=== PATIENT | female | born 1955 | race Caucasian/White ===

== ENCOUNTER 2019-03-24 10:48 | Observation (INO) | payer OTHER, SELFPAY ==
[2019-03-24] VITALS (11 sets, daily range): BP systolic 107–139; BP diastolic 77–98; PULSE 66–105; RESP 16–26; TEMP 36.6–37.7; O2SAT 96–100; BMI 19.3
--- NOTE | 2019-03-24 11:03 | CT_ITS ---
STUDY: CT BRAIN WITHOUT CONTRAST REASON FOR EXAM: Female, 63 years old. Seizure x2. History of seizures, hypertension and drug abuse. RADIATION DOSAGE (If Supplied By Facility): CTDIvol = ( 44.99 ) mGy, DLP = ( 812.98 ) mGycm TECHNIQUE: Transaxial CT imaging of the brain was performed without administration of intravenous contrast material. Sagittal and coronal 2-D MPR Individualized dose optimization techniques were used for this CT. COMPARISON: MRI brain 09/01/2017, CT head 08/30/2017, 11/22/2016, 06/01/2016.. FINDINGS: Paranasal sinuses clear. Left mastoid air cells and middle ear cavity clear. Right mastoidectomy. Mild soft tissue thickening on the margins of the right middle ear cavity. Moderate degenerative features of the left TMJ, [id number] of the right TMJ. Symmetric and grossly normal features of the internal auditory canals, cochlea and semicircular canals. Extra cranial soft tissues including orbital contents exhibit no acute process. Moderate symmetric expansion of lateral ventricles and extra axial spaces consistent with age-related cerebral atrophy. Moderate partially confluent chronic low-density changes in the deep white matter bifrontal and biparietal consistent with chronic microvascular ischemic disease. There is no acute intracranial bleed, mass or mass effect nor any specific evidence of acute territorial infarct. Normal features of the pituitary, brainstem and cerebellum. CT/Brain/Head without Contrast IMPRESSION: No acute intracranial process. Electronically Signed: Brent Looney MD at 11:44 EDT Tel , Service support ,
--- NOTE | 2019-03-24 11:03 | EKG12_ITS ---
Test Reason : MORNING EKG Blood Pressure : / mmHG Vent. Rate : 086 BPM Atrial Rate : 086 BPM P-R Int : 168 ms QRS Dur : 076 ms QT Int : 452 ms P-R-T Axes : 076 051 074 degrees QTc Int : 540 ms Normal sinus rhythm Right atrial enlargement Prolonged QT Abnormal ECG When compared with ECG of 24-MAR-2019 11:02, MANUAL COMPARISON REQUIRED, DATA IS UNCONFIRMED Confirmed by SHAY SCHAEFFER ([id number]), scientific editor RUBÉN MCGRAW ([id number]) on 03/29/2019 2:24:12 PM Referred By: WILFRID Confirmed By:RAFAEL SCHAEFFER
[2019-03-24 11:10] LABS: Bedside Glucose 123 mg/dL (70-110)
[2019-03-24 11:17] LABS: International Normalized Ratio 1.1; Prothrombin Time (Protime)PT. 13.7 SECONDS (11.7-14.9)
[2019-03-24 11:18] LABS: Absolute Lymphocyte Count 1.09 X10^3/ul (0.83-4.51); Absolute Neutrophil Count 7.3 X10^3/uL (2.0-7.7); Basophil# 0.02 X10^3/uL; Basophil% 0.2 % (0-1); Eosinophil# 0.01 X10^3/uL; Eosinophils% 0.1 % (0-5); Hematocrit 40.6 % (37-47); Hemoglobin 13.9 g/dl (12.0-15.0); Lymphocyte # 1.09 X10^3/ul (4.0); Lymphocyte % 10.5 % (19-41); Mean Corp Hgb Conc 34.2 g/gl (32-36); Mean Corpuscular Hgb 32.9 pg (27.0-32.0); Mean Platelet Vol. 9.4 fl (6.2-12.0); Monocyte# 1.96 X10^3/uL; Monocyte% 18.8 % (0-10); Neutrophil # 7.33 X10^3/uL (2.7-7.7); Neutrophil % 70.2 % (47-70); Partial Thromboplast Time 34.3 Seconds (24.1-36.2); Platelet Count 372 K/mm3 (150-450); RBC Distribution Width CV 12.3 % (11.6-14.6); RBC Distribution Width SD 41.9 fl (35.1-43.9); Red Blood Count 4.23 M/mm3 (4.2-5.4); White Blood Count 10.4 K/mm3 (4.4-11.0)
[2019-03-24 11:19] LABS: Differential Indicated SCAN CRITERIA MET; POSITIVE COUNT NO; POSITIVE DIFFERENTIAL YES; POSITIVE MORPHOLOGY NO
--- NOTE | 2019-03-24 11:20 | RAD_ITS ---
STUDY: X-RAY CHEST REASON FOR EXAM: Female, 63 years old. Cough, seizure last night and again today. TECHNIQUE: AP upright portable chest COMPARISON: 08/31/2017 FINDINGS: Evidence of COPD/emphysema. Hyperlucent hyperinflated lungs with diffuse mild coarsening of the pulmonary interstitium. Stable compared to prior imaging. The lungs are otherwise clear and symmetrically expanded. Normal cardiomediastinal silhouette, naeem and pleural margins. No acute osseous or upper abdominal process. RAD/Chest 1 View IMPRESSION: No acute cardiopulmonary process. Electronically Signed: Brent Looney MD at 11:46 EDT Tel , Service support ,
[2019-03-24 11:24] LABS: Anion Gap 9 (5-15); BUN 7 mg/dL (7-18); BUN/Creat Ratio 10.1 RATIO (10-20); Calcium,Total 8.2 mg/dL (8.5-10.1); Chloride 98 mmol/L (98-107); EST Glomerular Filtration Rate 90 mL/min (>60); Est Glom Filt Rate - Afr Amer 109 mL/min (>60); Estimated Creatinine Clearance 61.45 ml/min; Glucose 117 mg/dL (74-106); Potassium 3.6 mmol/L (3.5-5.1); Sodium Level 135 mmol/L (136-145)
--- NOTE | 2019-03-24 11:36 | ED.VISSUMM ---
- ER Visit Summary Date of Service: 03/24/19 Chief Complaint: Seizures, abnormal behavior History of Present Illness: The patient is a 63 F who presents after having 2 seizures. Apparently she had a seizure last night and this morning. She does have a history of this. She is on Keppra 750 mg twice a day. She has had no recent illnesses. According to the daughter she has not been acting normally. She is nonverbal and does not contribute to any of the history. The daughter states that she will not speak unless the patient's is present. She also says that when the patient's was at work she felt normal but when he returns from work she acts like this. Physical Examination: Vital signs reviewed. HEENT exam unremarkable. Heart is regular rate and rhythm. Lungs are clear bilaterally. Abdomen is soft and nontender. Extremities have no edema. Her neurologic exam shows that she is nonverbal and does not answer any questions. She has diffuse overall weakness. She is holding her left arm stiff up into her chest. Her head is deviated to the right. Test Results: CAT scan of the head and chest x-ray are nonacute. EKG is normal sinus rhythm. Labs are unremarkable except for a UTI. Emergency Department Course and Treatment: Upon reevaluation the patient is holding her arms to her side. She was looking straight forward and then when I walked into the room she moved her left arm stiff again and started looking to the right. She then had a episode where her eyes were rhythmically moving as well as her tongue. This lasted about 15 seconds. At this point I loaded her with 1 g of Keppra. She will be given Cipro for her UTI. She is not back to her normal mental state according to family. I feel that we should admit the patient to the hospital for IV antibiotics as well as observation for her seizures. Treatment Plan: [] Disposition: Admit Impression: Seizure, UTI This note was generated with [employer] dictation software. It may contain incorrect words, spelling, and punctuation that were not noted in review of the chart prior to signing ED Disposition - Plan for ED Patient: Referrals: Oscar Reese MD [Primary Care Provider] -
[2019-03-24 11:47] LABS: Platelet Estimate ADEQUATE (ADEQ); Red Cell Morphology NORM C+C NORMAL (NORM C&C)
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
[2019-03-24] MEDS: levETIRAcetam IV 1,000 MG/100 ML BAG 400 MG IV (12:14)
[2019-03-24 12:58] LABS: Amphetamine Urine VISTA NEGATIVE (<1000 ng/mL); Barbiturate Urine VISTA NEGATIVE (< 200 ng/mL); Benzodiazepine Urine VISTA POSITIVE (< 200 ng/mL); Cocaine Urine VISTA NEGATIVE (< 300 ng/mL); Ecstacy Urine VISTA NEGATIVE (< 500 ng/mL); Methadone Urine VISTA NEGATIVE (< 300 ng/mL); PCP Urine VISTA NEGATIVE (< 25 ng/mL); THC Urine VISTA POSITIVE (< 50 ng/mL); Vista UDS pH Range 7
[2019-03-24 13:15] LABS: Mucous, Urine 0 SEEN /hpf (<or=2+)
[2019-03-24 13:22] LABS: Glucose, Dipstick Normal (Normal); Ketone-Dipstick Negative (Negative); Leukocyte Esterase-Dipstick 100 /ul (Negative); Nitrite-Dipstick Negative (Negative); Occult Blood-Urine 50 /ul (Negative); Protein-Dipstick 100 mg/dl (Negative); Specific Gravity, Urine 1.015 (1.002-1.030); Urine Bilirubin Dipstick Negative (Negative); Urine Urobilinogen Normal (Normal)
[2019-03-24 13:26] LABS: Color, Urine STRAW (Yellow); Urine Clarity Cloudy (Clear)
[2019-03-24 13:35] LABS: Bacteria 1+ /hpf (None Seen); Red Blood Cells-Urine 0-5 SEEN /hpf (0-5); Squamous Epithelial Cells - UA 10-25 SEEN /hpf (5-10); White Blood Cells 10-25 SEEN /hpf (0-5)
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
--- NOTE | 2019-03-24 14:19 | PCM.HP.STD ---
Problem List (1) Hypothyroidism Status: Chronic (2) Macrocytosis without anemia Status: Chronic (3) Seizure disorder Status: Chronic (4) History of alcohol abuse Status: Chronic Comment: dtr states she drank to relieve hip pain and she only drinks occasionally now History of Present Illness Date of Admission: 03/24/19 Chief Complaint: Reported seizure. The patient is a 63 year old F with past medical history as mentioned above presented to the emergency room because of reported seizure. At this time, patient is very sleepy, lethargic and not able to provide any history. Patient's daughter was at the bedside. According to the daughter, patient was sick, complains of stomach upset with nausea and vomiting last night. Daughter mentioned that her mother is noncompliant with her medications and she knew that her mother took her Keppra on Friday morning and she is not sure if she took her medications after that. Reportedly, patient had a seizure last night and another seizure this morning. Patient had a history of seizure and she has been on Keppra and she has been noncompliant with her medications. She has history of polysubstance abuse and according to her daughter, she is still smokes marijuana and her urine drug screen was positive for benzodiazepines and cannabinoids. She has a history of hypothyroidism, has been on levothyroxine and TSH was 2.61 on August,. In the emergency department, patient was obtunded, sleepy and lethargic, opens eyes to painful stimuli, not following commands. She had a low-grade fever of 99.9, blood pressure and heart rate are stable, pulse ox is maintained on room air. Routine blood work was unremarkable. EKG revealed normal sinus rhythm without evidence of acute ischemic changes, revealed prolonged QTc interval. Troponin 0 0.037, negative. Urinalysis revealed cloudy urine, negative for nitrite, there was 100 leukocyte esterase, 10-25 WBCs and 1+ bacteria. Urine drug screen was positive for benzodiazepines and cannabinoids. Blood alcohol level was 4. Chest x-ray showed no acute findings. CT scan brain without contrast showed no acute infarction or hemorrhage. She is being admitted for seizure, encephalopathy likely postictal state and polysubstance abuse as well as probable acute cystitis. Past Medical History Past Medical History (Chronic Problems): Chronic Problems Nicotine addiction (Chronic) Hypothyroidism (Chronic) GERD (gastroesophageal reflux disease) (Chronic) Macrocytosis without anemia (Chronic) Seizure disorder (Chronic) History of alcohol abuse (Chronic) dtr states she drank to relieve hip pain and she only drinks occasionally now Left ventricular hypertrophy (Chronic) Mild on echocardiogram done in July 2014 Allergies Penicillins Allergy (Verified 03/24/19 10:49) Unknown Home Medications: Ambulatory Orders Medication Instructions Recorded Mirtazapine [Remeron] 30 mg PO QHS 06/01/16 Folic Acid 1 mg PO DAILY@0800 09/30/16 Aspirin [Aspir-Low] 81 mg PO DAILY 03/24/19 Ferrous Sulfate, Dried [Iron] 65 mg PO DAILY 03/24/19 Levetiracetam 750 mg PO BID 03/24/19 Levothyroxine Sodium 150 mg PO DAILY 03/24/19 Magnesium Oxide [Magnesium] 500 mg PO DAILY 03/24/19 Multivitamin with Minerals 1 tab PO DAILY 03/24/19 [Multiple Vitamin] Potassium 99 mg PO DAILY 03/24/19 Rosuvastatin Calcium [Crestor] 20 mg PO QHS 03/24/19 Surgical History: - - tubal ligation in her Psychiatric History: No pertinent psych hx, - 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 Eyes: Reports: - - Unobtainable, patient is obtunded, lethargic. HEENT: Reports: - - Unobtainable, patient is obtunded, lethargic. Cardiovascular: Reports: - - Unobtainable, patient is obtunded, lethargic. Respiratory: Reports: - - Unobtainable, patient is obtunded, lethargic. Gastrointestinal: Reports: - - Unobtainable, patient is obtunded, lethargic. Genitourinary: Reports: - - Unobtainable, patient is obtunded, lethargic. Gynecological: Reports: - - Unobtainable, patient is obtunded, lethargic. Musculoskeletal: Reports: - - Unobtainable, patient is obtunded, lethargic. Neurological: Reports: - - Unobtainable, patient is obtunded, lethargic. Psychiatric: Reports: - - Unobtainable, patient is obtunded, lethargic. VTE Information - Inpt Only VTE Present on Admission: No VTE Mechan Device Prophylaxis: None VTE Pharm Prophylaxis ordered?: Yes - Physical Exam General: - - Sleepy, lethargic, open eyes upon painful stimuli and verbal stimuli, flexor response to pain, not following commands. HEENT: Atraumatic, PERRLA, EOMI Oral: Moist Mucosa, No Gingival or Mucosal Lesions/ Ulcerations Neck: Supple, No JVD, Negative Carotid Bruits, Trachea Midline, Thyroid Normal Size and Texture Lungs: Clear to auscultation, No wheeze, No rales, Diminished, Rhonchi Cardiovascular: Regular rate, Regular Rhythm, Normal S1, Normal S2, PMI Normal Abdomen: Bowel Sounds Present, Soft, Non Tender, Non-Distended, No Hepato-splenomegaly Extremities: No clubbing, No cyanosis, No edema Skin: No rashes, No breakdown Lymphatic: No Cervical, Supraclavicular, or Inguinal Adenopathy Neurological: Cranial nerves II-XII grossly intact, - - Moving all limbs. Psych/Mental Status: - - Unable to assess. Vital Signs Temp Pulse Resp BP Pulse Ox 99.9 F H 66 16 139/91 H 100 03/24/19 11:03 03/24/19 12:48 03/24/19 12:48 03/24/19 12:48 03/24/19 12:48 Oxygen Delivery Method Room Air Weight: 105 lb 11.2 oz Body Mass Index (BMI) 19.3 Finger Stick Blood Glucose 123 Laboratory Tests Past 24 Hrs 03/24/19 03/24/19 03/24/19 11:00 11:00 11:00 WBC 10.4 RBC 4.23 Hgb 13.9 Hct 40.6 MCV 96.0 MCH 32.9 H MCHC 34.2 RDW 12.3 RDW Differential 41.9 Plt Count 372 MPV 9.4 Immature Gran % (Auto) 0.200 Neut % (Auto) 70.2 H Lymph % (Auto) 10.5 L Tift % (Auto) 18.8 H Eos % (Auto) 0.1 Baso % (Auto) 0.2 Absolute Neuts (auto) 7.3 Absolute Lymphs (auto) 1.09 Total Counted Not Reportable Differential Comment Platelet Estimate ADEQUATE RBC Morphology NORM C+C PT 13.7 INR 1.1 APTT 34.3 Sodium 135 L Potassium 3.6 Chloride 98 Carbon Dioxide 28.0 Anion Gap 9 BUN 7 Creatinine 0.70 Estim Creat Clear Calc 61.45 Est GFR (MDRD) Af Amer 109 Est GFR (MDRD) Non-Af 90 BUN/Creatinine Ratio 10.1 Glucose 117 H Calcium 8.2 L Troponin I 0.037 Urine Color Urine Clarity Urine pH Ur Specific Kimball Urine Protein Urine Glucose (UA) Urine Ketones Urine Occult Blood Urine Nitrite Urine Bilirubin Urine Urobilinogen Ur Leukocyte Esterase Urine RBC Urine WBC Ur Squamous Epith Cells Urine Bacteria Urine Mucus Urine Opiates Screen Urine Methadone Screen Ur Barbiturates Screen Ur Phencyclidine Scrn Ur Amphetamines Screen U Methamphetamin-MDMA U Benzodiazepines Scrn Urine Cocaine Screen U Cannabinoids Screen Ur Drug Screen Comment Ethyl Alcohol 03/24/19 03/24/19 03/24/19 11:00 12:20 12:20 WBC RBC Hgb Hct MCV MCH MCHC RDW RDW Differential Plt Count MPV Immature Gran % (Auto) Neut % (Auto) Lymph % (Auto) Tift % (Auto) Eos % (Auto) Baso % (Auto) Absolute Neuts (auto) Absolute Lymphs (auto) Total Counted Differential Comment Platelet Estimate RBC Morphology PT INR APTT Sodium Potassium Chloride Carbon Dioxide Anion Gap BUN Creatinine Estim Creat Clear Calc Est GFR (MDRD) Af Amer Est GFR (MDRD) Non-Af BUN/Creatinine Ratio Glucose Calcium Troponin I Urine Color STRAW Urine Clarity Cloudy Urine pH 7.0 Ur Specific Kimball 1.015 Urine Protein 100 H Urine Glucose (UA) Normal Urine Ketones Negative Urine Occult Blood 50 H Urine Nitrite Negative Urine Bilirubin Negative Urine Urobilinogen Normal Ur Leukocyte Esterase 100 H Urine RBC 0-5 SEEN Urine WBC 10-25 SEEN Ur Squamous Epith Cells 10-25 SEEN Urine Bacteria 1+ Urine Mucus 0 SEEN Urine Opiates Screen NEGATIVE Urine Methadone Screen NEGATIVE Ur Barbiturates Screen NEGATIVE Ur Phencyclidine Scrn NEGATIVE Ur Amphetamines Screen NEGATIVE U Methamphetamin-MDMA NEGATIVE U Benzodiazepines Scrn POSITIVE H Urine Cocaine Screen NEGATIVE U Cannabinoids Screen POSITIVE H Ur Drug Screen Comment Ethyl Alcohol 4.0 POC Glucose 03/24/19 11:04 POC Glucose 123 H Clinical Impression(s) from Imaging Studies Brain CT 03/24/19 11:03 IMPRESSION: No acute intracranial process. Electronically Signed: Brent Looney MD at 11:44 EDT Tel , Service support , Chest X-Ray 03/24/19 11:20 IMPRESSION: No acute cardiopulmonary process. Electronically Signed: Brent Looney MD at 11:46 EDT Tel , Service support , Assessment/Plan This is a 63 years old female patient presented to the emergency room because of seizure in context of history of seizure with noncompliance, found to have probable acute cystitis and encephalopathy which is could be due to postictal state. #1 seizure: With history of seizure disorder, has been on Keppra. Reportedly, patient is noncompliant with her medications. This seizure could be triggered by probable acute cystitis versus substance abuse, patient has been smoking marijuana. CT scan brain showed no acute findings. Apart from low-grade fever, other vital signs are stable. She was given loading dose of IV Keppra in the ER. Plan: Admit to PCU, cardiac monitoring, n.p.o. for now except p.o. meds, seizure precautions, aspiration precautions, IV Ativan 2 mg x 1 as needed for seizure, IV fluids, IV antiemetics, neurology consult, repeat CBC and BMP tomorrow morning, PT OT evaluation and treatment. #2 encephalopathy: Probably due to postictal state, drug use may be contributing. Urine drug screen was positive for benzodiazepines and cannabinoids. Blood alcohol level was low. CT scan brain showed no acute findings. Plan: Monitoring plan as above, monitor, treat underlying seizure, treat underlying infection. #3 probable acute cystitis: Urinalysis revealed cloudy urine, negative for nitrite, 100 leukocyte esterase and there was 10-25 WBCs and 1+ bacteria. Patient had a low-grade fever in the ER. No leukocytosis. No evidence of sepsis or severe sepsis. Plan: Urine culture, start IV ciprofloxacin. #4 prolonged QTC on EKG: QTC on EKG was 569 ms, no other acute findings on the EKG. She is not on any medication that can cause prolonged QTC. Remeron can cause torsade de points. Troponin was negative. Plan: Cardiac monitoring, check serum magnesium, repeat EKG tomorrow morning. #5 seizure disorder: Patient has been on Keppra, noncompliant. Plan as above. #6 hypothyroidism: Continue levothyroxine , check TSH. #7 polysubstance abuse: urine drug screen was positive as above, plan as above. #8 history of alcohol abuse: According to her daughter, now she uses alcohol only occasionally. #9 GERD: She is not on any treatment at home, will start Pepcid twice daily. #10 DVT prophylaxis: Subcu Lovenox. This note was generated with [employer] dictation software. It may contain incorrect words, spelling, and punctuation that were not noted in checking the note before signing. Code Visit Inpatient E&M: 69918 Init Hosp L3
--- NOTE | 2019-03-24 14:25 | HP.PCM_ITS ---
Problem List (1) Hypothyroidism Status: Chronic (2) Macrocytosis without anemia Status: Chronic (3) Seizure disorder Status: Chronic (4) History of alcohol abuse Status: Chronic Comment: dtr states she drank to relieve hip pain and she only drinks occasionally now History of Present Illness Date of Admission: 03/24/19 Chief Complaint: Reported seizure. The patient is a 63 year old F with past medical history as mentioned above presented to the emergency room because of reported seizure. At this time, patient is very sleepy, lethargic and not able to provide any history. Patient's daughter was at the bedside. According to the daughter, patient was sick, complains of stomach upset with nausea and vomiting last night. Daughter mentioned that her mother is noncompliant with her medications and she knew that her mother took her Keppra on Friday morning and she is not sure if she took her medications after that. Reportedly, patient had a seizure last night and another seizure this morning. Patient had a history of seizure and she has been on Keppra and she has been noncompliant with her medications. She has history of polysubstance abuse and according to her daughter, she is still smokes marijuana and her urine drug screen was positive for benzodiazepines and cannabinoids. She has a history of hypothyroidism, has been on levothyroxine and TSH was 2.61 on August,. In the emergency department, patient was obtunded, sleepy and lethargic, opens eyes to painful stimuli, not following commands. She had a low-grade fever of 99.9, blood pressure and heart rate are stable, pulse ox is maintained on room air. Routine blood work was unremarkable. EKG revealed normal sinus rhythm without evidence of acute ischemic changes, revealed prolonged QTc interval. Troponin 0 0.037, negative. Urinalysis revealed cloudy urine, negative for nitrite, there was 100 leukocyte esterase, 10-25 WBCs and 1+ bacteria. Urine drug screen was positive for benzodiazepines and cannabinoids. Blood alcohol level was 4. Chest x-ray showed no acute findings. CT scan brain without contrast showed no acute infarction or hemorrhage. She is being admitted for seizure, encephalopathy likely postictal state and polysubstance abuse as well as probable acute cystitis. Past Medical History Past Medical History (Chronic Problems): Chronic Problems Nicotine addiction (Chronic) Hypothyroidism (Chronic) GERD (gastroesophageal reflux disease) (Chronic) Macrocytosis without anemia (Chronic) Seizure disorder (Chronic) History of alcohol abuse (Chronic) dtr states she drank to relieve hip pain and she only drinks occasionally now Left ventricular hypertrophy (Chronic) Mild on echocardiogram done in July 2014 Allergies Penicillins Allergy (Verified 03/24/19 10:49) Unknown Home Medications: Ambulatory Orders Medication Instructions Recorded Mirtazapine [Remeron] 30 mg PO QHS 06/01/16 Folic Acid 1 mg PO DAILY@0800 09/30/16 Aspirin [Aspir-Low] 81 mg PO DAILY 03/24/19 Ferrous Sulfate, Dried [Iron] 65 mg PO DAILY 03/24/19 Levetiracetam 750 mg PO BID 03/24/19 Levothyroxine Sodium 150 mg PO DAILY 03/24/19 Magnesium Oxide [Magnesium] 500 mg PO DAILY 03/24/19 Multivitamin with Minerals 1 tab PO DAILY 03/24/19 [Multiple Vitamin] Potassium 99 mg PO DAILY 03/24/19 Rosuvastatin Calcium [Crestor] 20 mg PO QHS 03/24/19 Surgical History: - - tubal ligation in her Psychiatric History: No pertinent psych hx, - PAIN MANAGEMENT NURSE History: No pertinent PAIN MANAGEMENT NURSE history Lives: Spouse/ Significant Other Smoking Status: Current every day smoker Alcohol: Occasional Drugs: Marijuana - *Family History Maternal History Items: Unknown Paternal History Items: Unknown Review of Systems Constitutional: Reports: - - Unobtainable, patient is obtunded, lethargic. Eyes: Reports: - - Unobtainable, patient is obtunded, lethargic. HEENT: Reports: - - Unobtainable, patient is obtunded, lethargic. Cardiovascular: Reports: - - Unobtainable, patient is obtunded, lethargic. Respiratory: Reports: - - Unobtainable, patient is obtunded, lethargic. Gastrointestinal: Reports: - - Unobtainable, patient is obtunded, lethargic. Genitourinary: Reports: - - Unobtainable, patient is obtunded, lethargic. Gynecological: Reports: - - Unobtainable, patient is obtunded, lethargic. Musculoskeletal: Reports: - - Unobtainable, patient is obtunded, lethargic. Neurological: Reports: - - Unobtainable, patient is obtunded, lethargic. Psychiatric: Reports: - - Unobtainable, patient is obtunded, lethargic. VTE Information - Inpt Only VTE Present on Admission: No VTE Mechan Device Prophylaxis: None VTE Pharm Prophylaxis ordered?: Yes - Physical Exam General: - - Sleepy, lethargic, open eyes upon painful stimuli and verbal stimuli, flexor response to pain, not following commands. HEENT: Atraumatic, PERRLA, EOMI Oral: Moist Mucosa, No Gingival or Mucosal Lesions/ Ulcerations Neck: Supple, No JVD, Negative Carotid Bruits, Trachea Midline, Thyroid Normal Size and Texture Lungs: Clear to auscultation, No wheeze, No rales, Diminished, Rhonchi Cardiovascular: Regular rate, Regular Rhythm, Normal S1, Normal S2, PMI Normal Abdomen: Bowel Sounds Present, Soft, Non Tender, Non-Distended, No Hepato- splenomegaly Extremities: No clubbing, No cyanosis, No edema Skin: No rashes, No breakdown Lymphatic: No Cervical, Supraclavicular, or Inguinal Adenopathy Neurological: Cranial nerves II-XII grossly intact, - - Moving all limbs. Psych/Mental Status: - - Unable to assess. Vital Signs Temp Pulse Resp BP Pulse Ox 99.9 F H 66 16 139/91 H 100 03/24/19 11:03 03/24/19 12:48 03/24/19 12:48 03/24/19 12:48 03/24/19 12:48 Oxygen Delivery Method Room Air Weight: 105 lb 11.2 oz Body Mass Index (BMI) 19.3 Finger Stick Blood Glucose 123 Laboratory Tests Past 24 Hrs 03/24/19 03/24/19 03/24/19 11:00 11:00 11:00 WBC 10.4 RBC 4.23 Hgb 13.9 Hct 40.6 MCV 96.0 MCH 32.9 H MCHC 34.2 RDW 12.3 RDW Differential 41.9 Plt Count 372 MPV 9.4 Immature Gran % (Auto) 0.200 Neut % (Auto) 70.2 H Lymph % (Auto) 10.5 L [place] % (Auto) 18.8 H Eos % (Auto) 0.1 Baso % (Auto) 0.2 Absolute Neuts (auto) 7.3 Absolute Lymphs (auto) 1.09 Total Counted Not Reportable Differential Comment Platelet Estimate ADEQUATE RBC Morphology NORM C+C PT 13.7 INR 1.1 APTT 34.3 Sodium 135 L Potassium 3.6 Chloride 98 Carbon Dioxide 28.0 Anion Gap 9 BUN 7 Creatinine 0.70 Estim Creat Clear Calc 61.45 Est GFR (MDRD) Af Amer 109 Est GFR (MDRD) Non-Af 90 BUN/Creatinine Ratio 10.1 Glucose 117 H Calcium 8.2 L Troponin I 0.037 Urine Color Urine Clarity Urine pH Ur Specific [place] Urine Protein Urine Glucose (UA) Urine Ketones Urine Occult Blood Urine Nitrite Urine Bilirubin Urine Urobilinogen Ur Leukocyte Esterase Urine RBC Urine WBC Ur Squamous Epith Cells Urine Bacteria Urine Mucus Urine Opiates Screen Urine Methadone Screen Ur Barbiturates Screen Ur Phencyclidine Scrn Ur Amphetamines Screen U Methamphetamin-MDMA U Benzodiazepines Scrn Urine Cocaine Screen U Cannabinoids Screen Ur Drug Screen Comment Ethyl Alcohol 03/24/19 03/24/19 03/24/19 11:00 12:20 12:20 WBC RBC Hgb Hct MCV MCH MCHC RDW RDW Differential Plt Count MPV Immature Gran % (Auto) Neut % (Auto) Lymph % (Auto) [place] % (Auto) Eos % (Auto) Baso % (Auto) Absolute Neuts (auto) Absolute Lymphs (auto) Total Counted Differential Comment Platelet Estimate RBC Morphology PT INR APTT Sodium Potassium Chloride Carbon Dioxide Anion Gap BUN Creatinine Estim Creat Clear Calc Est GFR (MDRD) Af Amer Est GFR (MDRD) Non-Af BUN/Creatinine Ratio Glucose Calcium Troponin I Urine Color STRAW Urine Clarity Cloudy Urine pH 7.0 Ur Specific [place] 1.015 Urine Protein 100 H Urine Glucose (UA) Normal Urine Ketones Negative Urine Occult Blood 50 H Urine Nitrite Negative Urine Bilirubin Negative Urine Urobilinogen Normal Ur Leukocyte Esterase 100 H Urine RBC 0-5 SEEN Urine WBC 10-25 SEEN Ur Squamous Epith Cells 10-25 SEEN Urine Bacteria 1+ Urine Mucus 0 SEEN Urine Opiates Screen NEGATIVE Urine Methadone Screen NEGATIVE Ur Barbiturates Screen NEGATIVE Ur Phencyclidine Scrn NEGATIVE Ur Amphetamines Screen NEGATIVE U Methamphetamin-MDMA NEGATIVE U Benzodiazepines Scrn POSITIVE H Urine Cocaine Screen NEGATIVE U Cannabinoids Screen POSITIVE H Ur Drug Screen Comment Ethyl Alcohol 4.0 POC Glucose 03/24/19 11:04 POC Glucose 123 H Clinical Impression(s) from Imaging Studies Brain CT 03/24/19 11:03 IMPRESSION: No acute intracranial process. Electronically Signed: Brent Looney MD at 11:44 EDT Tel , Service support , Chest X-Ray 03/24/19 11:20 IMPRESSION: No acute cardiopulmonary process. Electronically Signed: Brent Looney MD at 11:46 EDT Tel , Service support , Assessment/Plan This is a 63 years old female patient presented to the emergency room because of seizure in context of history of seizure with noncompliance, found to have probable acute cystitis and encephalopathy which is could be due to postictal state. #1 seizure: With history of seizure disorder, has been on Keppra. Reportedly, patient is noncompliant with her medications. This seizure could be triggered b y probable acute cystitis versus substance abuse, patient has been smoking marijuana. CT scan brain showed no acute findings. Apart from low-grade fever, other vital signs are stable. She was given loading dose of IV Keppra in the ER. Plan: Admit to PCU, cardiac monitoring, n.p.o. for now except p.o. meds, seizure precautions, aspiration precautions, IV Ativan 2 mg x 1 as needed for seizure, IV fluids, IV antiemetics, neurology consult, repeat CBC and BMP tomorrow morning, PT OT evaluation and treatment. #2 encephalopathy: Probably due to postictal state, drug use may be contributing. Urine drug screen was positive for benzodiazepines and cannabinoids. Blood alcohol level was low. CT scan brain showed no acute findings. Plan: Monitoring plan as above, monitor, treat underlying seizure, treat underlying infection. #3 probable acute cystitis: Urinalysis revealed cloudy urine, negative for nitrite, 100 leukocyte esterase and there was 10-25 WBCs and 1+ bacteria. Patient had a low-grade fever in the ER. No leukocytosis. No evidence of sepsis or severe sepsis. Plan: Urine culture, start IV ciprofloxacin. #4 prolonged QTC on EKG: QTC on EKG was 569 ms, no other acute findings on the EKG. She is not on any medication that can cause prolonged QTC. Remeron can cause torsade de points. Troponin was negative. Plan: Cardiac monitoring, check serum magnesium, repeat EKG tomorrow morning. #5 seizure disorder: Patient has been on Keppra, noncompliant. Plan as above. #6 hypothyroidism: Continue levothyroxine , check TSH. #7 polysubstance abuse: urine drug screen was positive as above, plan as above. #8 history of alcohol abuse: According to her daughter, now she uses alcohol only occasionally. #9 GERD: She is not on any treatment at home, will start Pepcid twice daily. #10 DVT prophylaxis: Subcu Lovenox. This note was generated with [employer] dictation software. It may contain incorrect words, spelling, and punctuation that were not noted in checking the note before signing. Code Visit Inpatient E&M: 91607 Init Hosp L3
[2019-03-24] MEDS: Ciprofloxacin 400 MG/200 ML BAG 200 MG IV ×2 (14:29→22:03)
[2019-03-24] MEDS: LORazepam 2 MG/ML Syringe IV (15:10)
--- NOTE | 2019-03-24 15:26 | NURSING ---
Pt very agitated and violent upon admission to floor. Dr. Henderson at bedside. Ordered x1 dose IV ativan for agitation. Superviser and chargemaster analyst at bedside. PT resisting care and oxygen. 3LNC applied once able to. Unable to obtain vital signs at this time due to pt's agitation. PT had x1 incontinence of stool and urine. IV ativan given with confirmation of Perico Prince and Perico Tucker RN. Pt's family member at bedside. Pt in bed at this time with seizure precautions. Environmental services called to clean up room. This RN will reattempt vital signs once pt has calmed down and not resisting care.
[2019-03-24] MEDS: 0.9% Normal Saline 1,000 ML 75 ML IV (15:47)
[2019-03-24 15:59] LABS: Magnesium 1.7 mg/dL (1.6-2.6); Thyroid Stim Hormone (TSH) < 0.01 uIU/mL (0.358-3.74)
--- NOTE | 2019-03-24 16:09 | NURSING ---
Pt unable to have haldol per Dr. Henderson due to prolonged QT
[2019-03-25] VITALS (8 sets, daily range): BP systolic 102–136; BP diastolic 66–83; PULSE 76–91; RESP 16; TEMP 36.4–37.4; O2SAT 95–100
[2019-03-25] MEDS: Levothyroxine 150 MCG Tablet PO (05:41)
--- NOTE | 2019-03-25 05:55 | EKG12_ITS ---
Test Reason : CP Blood Pressure : / mmHG Vent. Rate : 098 BPM Atrial Rate : 098 BPM P-R Int : 162 ms QRS Dur : 066 ms QT Int : 444 ms P-R-T Axes : 090 064 082 degrees QTc Int : 566 ms Normal sinus rhythm Septal infarct (cited on or before 17-SEP-2015), age undetermined Prolonged QT Abnormal ECG Confirmed by UYEN AGUIRRE ([id number]), publication editor RUBÉN MCGRAW ([id number]) on 03/26/2019 10:49:48 AM Referred By: ARTI Confirmed By:UYEN AGUIRRE
[2019-03-25 06:15] LABS: Absolute Lymphocyte Count 1.93 X10^3/ul (0.83-4.51); Absolute Neutrophil Count 6.6 X10^3/uL (2.0-7.7); Basophil# 0.05 X10^3/uL; Basophil% 0.5 % (0-1); Eosinophil# 0.05 X10^3/uL; Eosinophils% 0.5 % (0-5); Hematocrit 35.9 % (37-47); Hemoglobin 12.1 g/dl (12.0-15.0); Lymphocyte # 1.93 X10^3/ul (4.0); Lymphocyte % 19.4 % (19-41); Mean Corp Hgb Conc 33.7 g/gl (32-36); Mean Corpuscular Hgb 32.8 pg (27.0-32.0); Mean Corpuscular Volume 97.3 fL (81-99); Mean Platelet Vol. 9.4 fl (6.2-12.0); Monocyte# 1.32 X10^3/uL; Monocyte% 13.3 % (0-10); Neutrophil # 6.58 X10^3/uL (2.7-7.7); Neutrophil % 66.2 % (47-70); Platelet Count 316 K/mm3 (150-450); RBC Distribution Width CV 12.6 % (11.6-14.6); RBC Distribution Width SD 44.8 fl (35.1-43.9); Red Blood Count 3.69 M/mm3 (4.2-5.4); White Blood Count 9.9 K/mm3 (4.4-11.0)
[2019-03-25 06:17] LABS: POSITIVE COUNT NO; POSITIVE DIFFERENTIAL NO; POSITIVE MORPHOLOGY NO
[2019-03-25 06:23] LABS: AST(SGOT) 40 U/L (15-37); Alanine Aminotransfer ALT/SGPT 27 U/L (13-56); Albumin, Serum 3.1 g/dL (3.2-5.0); Alkaline Phosphatase 69 U/L (45-117); Anion Gap 8 (5-15); BUN 7 mg/dL (7-18); BUN/Creat Ratio 12.8 RATIO (10-20); Calcium,Total 8.3 mg/dL (8.5-10.1); Chloride 105 mmol/L (98-107); Creatinine, Serum 0.55 mg/dL (0.55-1.02); EST Glomerular Filtration Rate 119 mL/min (>60); Est Glom Filt Rate - Afr Amer 144 mL/min (>60); Estimated Creatinine Clearance 31.48 ml/min; Globulin 3.2 g/dL (2.2-4.2); Glucose 138 mg/dL (74-106); Protein, Total 6.3 g/dL (6.4-8.2); Sodium Level 139 mmol/L (136-145)
[2019-03-25] MEDS: 0.9% Normal Saline 1,000 ML 75 ML IV (06:49)
[2019-03-25] MEDS: Famotidine 20 MG Tablet PO (08:48)
[2019-03-25] MEDS: Ferrous Sulfate 325 MG Tablet PO (08:48)
[2019-03-25] MEDS: Aspirin E.C. 81 MG Tablet PO (08:48)
[2019-03-25] MEDS: Folic Acid 1 MG Tablet PO (08:48)
[2019-03-25] MEDS: Enoxaparin 40 MG/0.4 ML Syringe SC (08:48)
--- NOTE | 2019-03-25 08:57 | PCM.PROGNOTE ---
- Physical Exam Vital Signs Temp Pulse Resp BP Pulse Ox 99.3 F H 80 16 102/66 95 03/25/19 08:27 03/25/19 08:27 03/25/19 08:27 03/25/19 08:27 03/25/19 08:46 Oxygen Flow Rate (L/min) 2 Oxygen Delivery Method Room Air Weight: 42 lb 8.787 oz Body Mass Index (BMI) 6.8 Finger Stick Blood Glucose 123 Intake and Output for Last 24 Hours 03/23/19 03/24/19 03/25/19 23:59 23:59 23:59 Intake Total 984 / 984 744 / 744 Output Total 350 / 350 Balance 634 / 634 744 / 744 Laboratory Tests Past 24 Hrs 03/24/19 03/24/19 03/24/19 11:00 11:00 11:00 WBC 10.4 RBC 4.23 Hgb 13.9 Hct 40.6 MCV 96.0 MCH 32.9 H MCHC 34.2 RDW 12.3 RDW Differential 41.9 Plt Count 372 MPV 9.4 Immature Gran % (Auto) 0.200 Neut % (Auto) 70.2 H Lymph % (Auto) 10.5 L [place] % (Auto) 18.8 H Eos % (Auto) 0.1 Baso % (Auto) 0.2 Absolute Neuts (auto) 7.3 Absolute Lymphs (auto) 1.09 Total Counted Not Reportable Differential Comment Platelet Estimate ADEQUATE RBC Morphology NORM C+C PT 13.7 INR 1.1 APTT 34.3 Sodium 135 L Potassium 3.6 Chloride 98 Carbon Dioxide 28.0 Anion Gap 9 BUN 7 Creatinine 0.70 Estim Creat Clear Calc 61.45 Est GFR (MDRD) Af Amer 109 Est GFR (MDRD) Non-Af 90 BUN/Creatinine Ratio 10.1 Glucose 117 H Calcium 8.2 L Magnesium Total Bilirubin AST ALT Alkaline Phosphatase Troponin I 0.037 Total Protein Albumin Globulin Albumin/Globulin Ratio TSH Free T4 Urine Color Urine Clarity Urine pH Ur Specific [place] Urine Protein Urine Glucose (UA) Urine Ketones Urine Occult Blood Urine Nitrite Urine Bilirubin Urine Urobilinogen Ur Leukocyte Esterase Urine RBC Urine WBC Ur Squamous Epith Cells Urine Bacteria Urine Mucus Urine Opiates Screen Urine Methadone Screen Ur Barbiturates Screen Ur Phencyclidine Scrn Ur Amphetamines Screen U Methamphetamin-MDMA U Benzodiazepines Scrn Urine Cocaine Screen U Cannabinoids Screen Ur Drug Screen Comment Ethyl Alcohol 03/24/19 03/24/19 03/24/19 11:00 11:00 12:20 WBC RBC Hgb Hct MCV MCH MCHC RDW RDW Differential Plt Count MPV Immature Gran % (Auto) Neut % (Auto) Lymph % (Auto) [place] % (Auto) Eos % (Auto) Baso % (Auto) Absolute Neuts (auto) Absolute Lymphs (auto) Total Counted Differential Comment Platelet Estimate RBC Morphology PT INR APTT Sodium Potassium Chloride Carbon Dioxide Anion Gap BUN Creatinine Estim Creat Clear Calc Est GFR (MDRD) Af Amer Est GFR (MDRD) Non-Af BUN/Creatinine Ratio Glucose Calcium Magnesium 1.7 Total Bilirubin AST ALT Alkaline Phosphatase Troponin I Total Protein Albumin Globulin Albumin/Globulin Ratio TSH < 0.01 L Free T4 Urine Color Urine Clarity Urine pH Ur Specific [place] Urine Protein Urine Glucose (UA) Urine Ketones Urine Occult Blood Urine Nitrite Urine Bilirubin Urine Urobilinogen Ur Leukocyte Esterase Urine RBC Urine WBC Ur Squamous Epith Cells Urine Bacteria Urine Mucus Urine Opiates Screen NEGATIVE Urine Methadone Screen NEGATIVE Ur Barbiturates Screen NEGATIVE Ur Phencyclidine Scrn NEGATIVE Ur Amphetamines Screen NEGATIVE U Methamphetamin-MDMA NEGATIVE U Benzodiazepines Scrn POSITIVE H Urine Cocaine Screen NEGATIVE U Cannabinoids Screen POSITIVE H Ur Drug Screen Comment Ethyl Alcohol 4.0 03/24/19 03/25/19 03/25/19 12:20 05:25 05:25 WBC 9.9 RBC 3.69 L Hgb 12.1 Hct 35.9 L MCV 97.3 MCH 32.8 H MCHC 33.7 RDW 12.6 RDW Differential 44.8 H Plt Count 316 MPV 9.4 Immature Gran % (Auto) 0.100 Neut % (Auto) 66.2 Lymph % (Auto) 19.4 [place] % (Auto) 13.3 H Eos % (Auto) 0.5 Baso % (Auto) 0.5 Absolute Neuts (auto) 6.6 Absolute Lymphs (auto) 1.93 Total Counted Not Reportable Differential Comment Platelet Estimate RBC Morphology PT INR APTT Sodium 139 Potassium 3.0 L Chloride 105 Carbon Dioxide 26.0 Anion Gap 8 BUN 7 Creatinine 0.55 Estim Creat Clear Calc 31.48 Est GFR (MDRD) Af Amer 144 Est GFR (MDRD) Non-Af 119 BUN/Creatinine Ratio 12.8 Glucose 138 H Calcium 8.3 L Magnesium Total Bilirubin 1.00 AST 40 H ALT 27 Alkaline Phosphatase 69 Troponin I Total Protein 6.3 L Albumin 3.1 L Globulin 3.2 Albumin/Globulin Ratio 1.0 TSH Free T4 Urine Color STRAW Urine Clarity Cloudy Urine pH 7.0 Ur Specific [place] 1.015 Urine Protein 100 H Urine Glucose (UA) Normal Urine Ketones Negative Urine Occult Blood 50 H Urine Nitrite Negative Urine Bilirubin Negative Urine Urobilinogen Normal Ur Leukocyte Esterase 100 H Urine RBC 0-5 SEEN Urine WBC 10-25 SEEN Ur Squamous Epith Cells 10-25 SEEN Urine Bacteria 1+ Urine Mucus 0 SEEN Urine Opiates Screen Urine Methadone Screen Ur Barbiturates Screen Ur Phencyclidine Scrn Ur Amphetamines Screen U Methamphetamin-MDMA U Benzodiazepines Scrn Urine Cocaine Screen U Cannabinoids Screen Ur Drug Screen Comment Ethyl Alcohol 03/25/19 05:25 WBC RBC Hgb Hct MCV MCH MCHC RDW RDW Differential Plt Count MPV Immature Gran % (Auto) Neut % (Auto) Lymph % (Auto) [place] % (Auto) Eos % (Auto) Baso % (Auto) Absolute Neuts (auto) Absolute Lymphs (auto) Total Counted Differential Comment Platelet Estimate RBC Morphology PT INR APTT Sodium Potassium Chloride Carbon Dioxide Anion Gap BUN Creatinine Estim Creat Clear Calc Est GFR (MDRD) Af Amer Est GFR (MDRD) Non-Af BUN/Creatinine Ratio Glucose Calcium Magnesium Total Bilirubin AST ALT Alkaline Phosphatase Troponin I Total Protein Albumin Globulin Albumin/Globulin Ratio TSH Free T4 1.20 Urine Color Urine Clarity Urine pH Ur Specific [place] Urine Protein Urine Glucose (UA) Urine Ketones Urine Occult Blood Urine Nitrite Urine Bilirubin Urine Urobilinogen Ur Leukocyte Esterase Urine RBC Urine WBC Ur Squamous Epith Cells Urine Bacteria Urine Mucus Urine Opiates Screen Urine Methadone Screen Ur Barbiturates Screen Ur Phencyclidine Scrn Ur Amphetamines Screen U Methamphetamin-MDMA U Benzodiazepines Scrn Urine Cocaine Screen U Cannabinoids Screen Ur Drug Screen Comment Ethyl Alcohol POC Glucose 03/24/19 11:04 POC Glucose 123 H Medical Necessity - Tobacco Use Smoking Status: Current every day smoker Tobacco Use: Cigarettes
[2019-03-25] MEDS: Ciprofloxacin 400 MG/200 ML BAG 200 MG IV (08:58)
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
[2019-03-25 10:39] LABS: Free T3 2.3 pg/mL (2.18-3.98)
[2019-03-25] MEDS: 0.9% NaCl Peripheral Flush Adult/Peds IV (10:52)
[2019-03-25] MEDS: LORazepam 2 MG/ML Syringe 0.5 MG IV (10:52)
--- NOTE | 2019-03-25 13:23 | PCM.CONS.GEN ---
Problem List (1) Seizure disorder Status: Chronic Reason for Consult Date of Consultation: 03/25/19 Reason for Consultation: Suspected seizures History of Present Illness: The patient is a 63 year old F with PMH substance abuse, EtOH abuse, hypothyroidism, history of seizure, GERD, nicotine addiction admitted with breakthrough seizures, found to have UTI on admission. History could not be obtained from the patient as patient wants to be discharged and is adamant about going home at present. As soon as I entered the room she waved goodbye and said she did not want to talk. History is obtained from the medical records and documentation. Per ED documentation she was admitted with 2 seizures, no further details seizure characterization available at present, is noncompliant with medication, is on Keppra 750 twice daily. Per patient she may have started having seizures 2 years ago, she is not sure about the type of seizures she has. She tells me that she takes Keppra intermittently and probably is not compliant. At present is very adamant and wants to go home. Has a sitter in the room and a security outside the room. She denies any headache, dizziness, focal motor weakness, sensory loss, visual disturbance, speech disturbances and per patient she is at baseline. She is not wanting to answer any further questions. Per patient she is ready to walk out of the hospital. Per documentation she still smokes marijuana and UDS was positive for benzodiazepines and cannabinoids on admission. Per ED documentation she was loaded with Keppra 1 g IV on admission. UA showed cloudy urine, LE?100, WBCs 10-25 and +1 bacteria. Blood alcohol level was 4. CT head without contrast did not show any acute findings. [] Past Medical History Past Medical History (Chronic Problems): Chronic Problems Nicotine addiction (Chronic) Hypothyroidism (Chronic) GERD (gastroesophageal reflux disease) (Chronic) Macrocytosis without anemia (Chronic) Seizure disorder (Chronic) History of alcohol abuse (Chronic) dtr states she drank to relieve hip pain and she only drinks occasionally now Left ventricular hypertrophy (Chronic) Mild on echocardiogram done in July 2014 Allergies Penicillins Allergy (Verified 03/24/19 10:49) Unknown Home Medications: Ambulatory Orders Medication Instructions Recorded Mirtazapine [Remeron] 30 mg PO QHS 06/01/16 Folic Acid 1 mg PO DAILY@0800 09/30/16 Aspirin [Aspir-Low] 81 mg PO DAILY 03/24/19 Ferrous Sulfate, Dried [Iron] 65 mg PO DAILY 03/24/19 Levetiracetam 750 mg PO BID 03/24/19 Levothyroxine Sodium 150 mcg PO DAILY 03/24/19 Magnesium Oxide [Magnesium] 500 mg PO DAILY 03/24/19 Multivitamin with Minerals 1 tab PO DAILY 03/24/19 [Multiple Vitamin] Potassium 99 mg PO DAILY 03/24/19 Rosuvastatin Calcium [Crestor] 20 mg PO QHS 03/24/19 Surgical History: - - tubal ligation in her 's Psychiatric History: No pertinent psych hx, - 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 She has a sitter in the room and the security personnel outside the room. - Physical Exam General: Alert HEENT: Normocephalic Neck: Supple Lungs: Normal air movement Cardiovascular: Normal S1, Normal S2 Abdomen: Bowel Sounds Present Extremities: No cyanosis Neurological: - - Patient was not cooperative for detailed neurological examination, patient is alert oriented, conscious, per patient is at baseline, CN?2-12 grossly intact, moves all 4 extremities, sensory/cerebellar/gait cannot be assessed. Vital Signs Temp Pulse Resp BP Pulse Ox 99.3 F H 80 16 102/66 95 03/25/19 08:27 03/25/19 08:27 03/25/19 08:27 03/25/19 08:27 03/25/19 08:46 Oxygen Flow Rate (L/min) 2 Oxygen Delivery Method Room Air Weight: 19.3 kg Body Mass Index (BMI) 6.8 Finger Stick Blood Glucose 123 Intake and Output for Last 24 Hours 03/23/19 03/24/19 03/25/19 23:59 23:59 23:59 Intake Total 984 / 984 744 / 744 Output Total 350 / 350 Balance 634 / 634 744 / 744 Laboratory Tests Past 24 Hrs 03/24/19 03/24/19 03/25/19 11:00 12:20 05:25 WBC 9.9 RBC 3.69 L Hgb 12.1 Hct 35.9 L MCV 97.3 MCH 32.8 H MCHC 33.7 RDW 12.6 RDW Differential 44.8 H Plt Count 316 MPV 9.4 Immature Gran % (Auto) 0.100 Neut % (Auto) 66.2 Lymph % (Auto) 19.4 Mcminn % (Auto) 13.3 H Eos % (Auto) 0.5 Baso % (Auto) 0.5 Absolute Neuts (auto) 6.6 Absolute Lymphs (auto) 1.93 Total Counted Not Reportable Sodium Potassium Chloride Carbon Dioxide Anion Gap BUN Creatinine Estim Creat Clear Calc Est GFR (MDRD) Af Amer Est GFR (MDRD) Non-Af BUN/Creatinine Ratio Glucose Calcium Magnesium 1.7 Total Bilirubin AST ALT Alkaline Phosphatase Total Protein Albumin Globulin Albumin/Globulin Ratio TSH < 0.01 L Free T4 Free T3 pg/dL Urine Color STRAW Urine Clarity Cloudy Urine pH 7.0 Ur Specific Hasty 1.015 Urine Protein 100 H Urine Glucose (UA) Normal Urine Ketones Negative Urine Occult Blood 50 H Urine Nitrite Negative Urine Bilirubin Negative Urine Urobilinogen Normal Ur Leukocyte Esterase 100 H Urine RBC 0-5 SEEN Urine WBC 10-25 SEEN Ur Squamous Epith Cells 10-25 SEEN Urine Bacteria 1+ Urine Mucus 0 SEEN 03/25/19 03/25/19 03/25/19 05:25 05:25 05:25 WBC RBC Hgb Hct MCV MCH MCHC RDW RDW Differential Plt Count MPV Immature Gran % (Auto) Neut % (Auto) Lymph % (Auto) Mcminn % (Auto) Eos % (Auto) Baso % (Auto) Absolute Neuts (auto) Absolute Lymphs (auto) Total Counted Sodium 139 Potassium 3.0 L Chloride 105 Carbon Dioxide 26.0 Anion Gap 8 BUN 7 Creatinine 0.55 Estim Creat Clear Calc 31.48 Est GFR (MDRD) Af Amer 144 Est GFR (MDRD) Non-Af 119 BUN/Creatinine Ratio 12.8 Glucose 138 H Calcium 8.3 L Magnesium Total Bilirubin 1.00 AST 40 H ALT 27 Alkaline Phosphatase 69 Total Protein 6.3 L Albumin 3.1 L Globulin 3.2 Albumin/Globulin Ratio 1.0 TSH Free T4 1.20 Free T3 pg/dL 2.3 Urine Color Urine Clarity Urine pH Ur Specific Hasty Urine Protein Urine Glucose (UA) Urine Ketones Urine Occult Blood Urine Nitrite Urine Bilirubin Urine Urobilinogen Ur Leukocyte Esterase Urine RBC Urine WBC Ur Squamous Epith Cells Urine Bacteria Urine Mucus Assessment/Plan The patient is a 63 year old F with PMH substance abuse, EtOH abuse, hypothyroidism, history of seizure, GERD, nicotine addiction admitted with breakthrough seizures, found to have UTI on admission. History could not be obtained from the patient as patient wants to be discharged and is adamant about going home at present. As soon as I entered the room she waved goodbye and said she did not want to talk. History is obtained from the medical records and documentation. Per ED documentation she was admitted with 2 seizures, is noncompliant with medication, is on Keppra 750 twice daily. Per patient she may have started having seizures 2 years ago, she is not sure about the type of seizures she has. She tells me that she takes Keppra intermittently and probably is not compliant. At present is very adamant and wants to go home. Has a sitter in the room and a security outside the room. She denies any headache, dizziness, focal motor weakness, sensory loss, visual disturbance, speech disturbances and per patient she is at baseline. She is not wanting to answer any further questions. Per patient she is ready to walk out of the hospital. Per documentation she still smokes marijuana and UDS was positive for benzodiazepines and cannabinoids on admission. Per ED documentation she was loaded with Keppra 1 g IV on admission. UA showed cloudy urine, LE?100, WBCs 10-25 and +1 bacteria. Blood alcohol level was 4. CT head without contrast did not show any acute findings. Impression Possible breakthrough seizures Possible encephalopathy?resolved UTI Plan ?CT head reported nothing acute ?On Keppra 750 mg p.o. twice daily. At present patient is very adamant that she wants to leave the hospital and is not cooperative in giving detailed history or for further examination. Per patient she may not be compliant with medication. Patient has been counseled to be compliant with AEDs. ?Patient should not be driving or driving for 6 months. Discussed with patient. ?Seizure precautions ?Labs reviewed ?Avoid fluoroquinolones for UTI management as can lower seizure threshold. Avoid Wellbutrin or tramadol. ?Patient counseled to quit smoking, marijuana as well as EtOH abuse. ?Please call with questions if any ?Follow-up with neurology in 6 weeks ?Thank you for allowing us to part spent in patient's care and management. Code Visit Inpatient E&M: 91360 Init Hosp L3
--- NOTE | 2019-03-25 13:30 | CASEMGMT ---
LUCIE called Adult Protective Services and requested a return call. Cecy CHARLES MSW
--- NOTE | 2019-03-25 13:30 | NURSING ---
Patient's at bedside to take patient home. Informed again that patient is leaving AMA and that insurance may not cover patient's hospital stay. Patient very excited to see her . She is cheerful and accepting of care. Patient states that she still wants to go home. states that he needs to call his insurance company to see if they will pay for her stay.
--- NOTE | 2019-03-25 14:03 | PCM.DC ---
You will use the following diet at home:: No restrictions Discharge Activity: Return to Normal Activity Call your doctor if you observe: Shortness of breath, Dizziness, Fainting spells, Chest pain Allergies/Adverse Reactions: Allergies Penicillins Allergy (Verified 03/24/19 10:49) Unknown Medications to take at Discharge Mirtazapine [Remeron] 30 mg PO QHS 06/01/16 Folic Acid 1 mg PO DAILY@0800 09/30/16 Aspirin [Aspir-Low] 81 mg PO DAILY 03/24/19 Ferrous Sulfate, Dried [Iron] 65 mg PO DAILY 03/24/19 Levetiracetam 750 mg PO BID 03/24/19 Levothyroxine Sodium 150 mcg PO DAILY 03/24/19 Magnesium Oxide [Magnesium] 500 mg PO DAILY 03/24/19 Multivitamin with Minerals [Multiple Vitamin] 1 tab PO DAILY 03/24/19 Potassium 99 mg PO DAILY 03/24/19 Rosuvastatin Calcium [Crestor] 20 mg PO QHS 03/24/19 Cephalexin [Keflex] 500 mg PO Q12 #10 capsule 03/25/19 The following prescriptions were given: Cephalexin [Keflex] 500 mg PO Q12 #10 capsule Primary Care Physician: Oscar Reese MD [Primary Care Provider] - Please follow up with your Primary Care Physician in: 1 Week Test Results: Test results from this visit will be discussed in further detail at your follow-up appointment, if applicable. Please Follow Up With: Domingo Gauthier MD When: 6 Weeks Proposed Discharge Date: 03/25/19
--- NOTE | 2019-03-25 14:08 | DCINST_ITS ---
You will use the following diet at home:: No restrictions Discharge Activity: Return to Normal Activity Call your doctor if you observe: Shortness of breath, Dizziness, Fainting spells, Chest pain Allergies/Adverse Reactions: Allergies Penicillins Allergy (Verified 03/24/19 10:49) Unknown Medications to take at Discharge Mirtazapine [Remeron] 30 mg PO QHS 06/01/16 Folic Acid 1 mg PO DAILY@0800 09/30/16 Aspirin [Aspir-Low] 81 mg PO DAILY 03/24/19 Ferrous Sulfate, Dried [Iron] 65 mg PO DAILY 03/24/19 Levetiracetam 750 mg PO BID 03/24/19 Levothyroxine Sodium 150 mcg PO DAILY 03/24/19 Magnesium Oxide [Magnesium] 500 mg PO DAILY 03/24/19 Multivitamin with Minerals [Multiple Vitamin] 1 tab PO DAILY 03/24/19 Potassium 99 mg PO DAILY 03/24/19 Rosuvastatin Calcium [Crestor] 20 mg PO QHS 03/24/19 Cephalexin [Keflex] 500 mg PO Q12 #10 capsule 03/25/19 The following prescriptions were given: Cephalexin [Keflex] 500 mg PO Q12 #10 capsule Primary Care Physician: Oscar Reese MD [Primary Care Provider] - Please follow up with your Primary Care Physician in: 1 Week Test Results: Test results from this visit will be discussed in further detail at your follow- up appointment, if applicable. Please Follow Up With: Domingo Gauthier MD When: 6 Weeks Proposed Discharge Date: 03/25/19
--- NOTE | 2019-03-25 14:28 | NURSING ---
returns and states that patient will be going home. CONNOR Emerson spoke with Dr. Mcmahon who wanted patient to stay. Patient being discharged AMA. Copy of AMA paperwork provided to patient.
--- NOTE | 2019-03-25 14:36 | PCM.DC.SUM ---
<Riddhi Roach - Last Filed: 03/25/19 14:54> Discharge Date and Diagnosis Date of Admission: 03/24/19 Date of Discharge: 03/25/19 - Primary Discharge Diagnosis 1. Possible breakthrough seizure 2. Possible encephalopathy 3. Acute UTI 4. Alcohol abuse/polysubstance abuse 5. Hypothyroidism 6. Tobacco dependence 7. GERD 8. Hyperlipidemia 9. 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 Electronically Signed: Brent Looney MD at 11:44 EDT Tel , Service support , Chest X-Ray 03/24/19 11:20 IMPRESSION: No acute cardiopulmonary process. Electronically Signed: Brent Looney MD at 11:46 EDT Tel , Service support , Dr. Gauthier- Neurology Operations: None Procedures: None Summary of Care Provided: The patient is a 63 year old F admitted 03/24/2018 due to reported seizure. 1. Possible breakthrough seizure-neurology consulted. CT of head with nothing acute. Recommend continue home Keppra regimen. Suspect patient is noncompliant with AED regimen. No driving for 6 months. Follow-up with neurology in 6 weeks. Patient did not cooperate with neurology evaluation and further recommended testing. Patient signed out AGAINST MEDICAL ADVICE. 2. Possible encephalopathy-patient with erratic behavior during admission, security called at one point due to threatening behavior. Family reports this is patient's baseline however UTI possibly contributing. 3. Acute UTI-urine culture pending at discharge. Patient discharged with Keflex 500 mg twice daily although she was advised to stay for further IV antibiotic therapy and await cultures however signed out AGAINST MEDICAL ADVICE as noted above. 4. Alcohol abuse/polysubstance abuse-tox screen positive for cannabinoids and benzodiazepines. 5. Hypothyroidism-continue Synthroid regimen. 6. Tobacco dependence-encourage smoking cessation. 7. GERD-not on regimen. 8. Hyperlipidemia-continue statin. 9. Depression-on Remeron regimen. 10. Prolonged QTC on EKG-avoid contributing medications. General: Intermittent outbursts, family reports this is baseline HEENT: Atraumatic, PERRLA, EOMI Oral: Moist Mucosa, No Gingival or Mucosal Lesions/ Ulcerations Neck: Supple, No JVD, Negative Carotid Bruits, Trachea Midline, Thyroid Normal Size and Texture Lungs: Clear to auscultation, diminished Cardiovascular: Regular rate, Regular Rhythm, Normal S1, Normal S2, PMI Normal Abdomen: Bowel Sounds Present, Soft, Non Tender, Non-Distended Extremities: No clubbing, No cyanosis, No edema Skin: No rashes, No breakdown Lymphatic: No Cervical, Supraclavicular, or Inguinal Adenopathy Neurological: Cranial nerves II-XII grossly intact, neuro grossly intact Psych/Mental Status: Labile, at baseline Patient seen and examined prior to discharge. Physical assessment as noted above. Patient signed out AGAINST MEDICAL ADVICE. This patient was seen by OLIVERIO Mckenzie under the supervision of Dr. Mcmahon. - Physical Exam Vital Signs Temp Pulse Resp BP Pulse Ox 99.3 F H 80 16 102/66 95 03/25/19 08:27 03/25/19 08:27 03/25/19 08:27 03/25/19 08:27 03/25/19 08:46 Oxygen Flow Rate (L/min) 2 Oxygen Delivery Method Room Air Weight: 42 lb 8.787 oz Body Mass Index (BMI) 6.8 Finger Stick Blood Glucose 123 Intake and Output for Last 24 Hours 03/23/19 03/24/19 03/25/19 23:59 23:59 23:59 Intake Total 984 / 984 744 / 744 Output Total 350 / 350 Balance 634 / 634 744 / 744 Laboratory Tests Past 24 Hrs 03/24/19 03/25/19 03/25/19 11:00 05:25 05:25 WBC 9.9 RBC 3.69 L Hgb 12.1 Hct 35.9 L MCV 97.3 MCH 32.8 H MCHC 33.7 RDW 12.6 RDW Differential 44.8 H Plt Count 316 MPV 9.4 Immature Gran % (Auto) 0.100 Neut % (Auto) 66.2 Lymph % (Auto) 19.4 Coleman % (Auto) 13.3 H Eos % (Auto) 0.5 Baso % (Auto) 0.5 Absolute Neuts (auto) 6.6 Absolute Lymphs (auto) 1.93 Total Counted Not Reportable Sodium 139 Potassium 3.0 L Chloride 105 Carbon Dioxide 26.0 Anion Gap 8 BUN 7 Creatinine 0.55 Estim Creat Clear Calc 31.48 Est GFR (MDRD) Af Amer 144 Est GFR (MDRD) Non-Af 119 BUN/Creatinine Ratio 12.8 Glucose 138 H Calcium 8.3 L Magnesium 1.7 Total Bilirubin 1.00 AST 40 H ALT 27 Alkaline Phosphatase 69 Total Protein 6.3 L Albumin 3.1 L Globulin 3.2 Albumin/Globulin Ratio 1.0 TSH < 0.01 L Free T4 Free T3 pg/dL 03/25/19 03/25/19 05:25 05:25 WBC RBC Hgb Hct MCV MCH MCHC RDW RDW Differential Plt Count MPV Immature Gran % (Auto) Neut % (Auto) Lymph % (Auto) Coleman % (Auto) Eos % (Auto) Baso % (Auto) Absolute Neuts (auto) Absolute Lymphs (auto) Total Counted Sodium Potassium Chloride Carbon Dioxide Anion Gap BUN Creatinine Estim Creat Clear Calc Est GFR (MDRD) Af Amer Est GFR (MDRD) Non-Af BUN/Creatinine Ratio Glucose Calcium Magnesium Total Bilirubin AST ALT Alkaline Phosphatase Total Protein Albumin Globulin Albumin/Globulin Ratio TSH Free T4 1.20 Free T3 pg/dL 2.3 Home Medications: Medications to take at Discharge Mirtazapine [Remeron] 30 mg PO QHS 06/01/16 Folic Acid 1 mg PO DAILY@0800 09/30/16 Aspirin [Aspir-Low] 81 mg PO DAILY 03/24/19 Ferrous Sulfate, Dried [Iron] 65 mg PO DAILY 03/24/19 Levetiracetam 750 mg PO BID 03/24/19 Levothyroxine Sodium 150 mcg PO DAILY 03/24/19 Magnesium Oxide [Magnesium] 500 mg PO DAILY 03/24/19 Multivitamin with Minerals [Multiple Vitamin] 1 tab PO DAILY 03/24/19 Potassium 99 mg PO DAILY 05/08/19 Rosuvastatin Calcium [Crestor] 20 mg PO QHS 03/24/19 Cephalexin [Keflex] 500 mg PO Q12 #10 capsule 03/25/19 Following Prescrptions Were Given to Patient: Cephalexin [Keflex] 500 mg PO Q12 #10 capsule Primary Care Physician: Oscar Reese MD [Primary Care Provider] - Disposition: Against Medical Advice Minutes spent on discharge:: 35 Patient Condition:: Fair Medical Necessity - Tobacco Use Smoking Status: Current every day smoker Tobacco Use: Cigarettes Meaningful Use Info Meaningful Use Diagnoses (Choose all that apply): None applicable <Katelynn Mcmahon - Last Filed: 03/25/19 16:07> Discharge Date and Diagnosis - Secondary Discharge Diagnosis Chronic Problems Nicotine addiction (Chronic) Hypothyroidism (Chronic) GERD (gastroesophageal reflux disease) (Chronic) Macrocytosis without anemia (Chronic) Seizure disorder (Chronic) History of alcohol abuse (Chronic) dtr states she drank to relieve hip pain and she only drinks occasionally now Left ventricular hypertrophy (Chronic) Mild on echocardiogram done in July 2014 Hospital Course and Treatment Summary of Care Provided: Patient seen by Riddhi DURON under my supervision The patient is a 63 year old F with past medical history as above who was admitted with complaint of seizure. Patient was known to have seizure disorder and had reportedly been noncompliant with her medication. She also had a history of polysubstance abuse and urine tox was positive for benzodiazepines and cannabinoids. She was found to have a UTI on admission and has been managed for acute metabolic encephalopathy most likely postictal and due to polysubstance abuse as well as acute cystitis as well as UTI and breakthrough seizures. She was started on IV ciprofloxacin and urine culture was ordered. Neurology was also consulted. Neurology evaluated patient and advocated conservative management. She had been put on IV Keppra, and was switched to PO KEppra. Patient signed out AMA on 03/25/2019 despite being advised to stay for further IV antibiotic therapy and await culture results. She was seen and examined prior to discharge. She was alert, and communicative and had flight of ideas. Daughter was by her bedside. She had no complaints. Review of systems otherwise negative. Labs and vitals reviewed. Home medications reviewed and reconciled. o/e: Vital Signs Height 5 ft 6 in Weight: 42 lb 8.787 oz Weight in Pounds 42.5 lbs Pulse Ox 100 Temperature 97.8 F Pulse Rate 87 Respiratory Rate 16 Blood Pressure 136/83 Blood Pressure Position Semi-Fowlers [] General: Intermittent outbursts, has flight of ideas. This is reportedly her baseline. HEENT: Atraumatic, PERRLA, EOMI Oral: Moist Mucosa, No Gingival or Mucosal Lesions/ Ulcerations Neck: Supple, No JVD, Negative Carotid Bruits, Trachea Midline, Thyroid Normal Size and Texture Lungs: Clear to auscultation, no wheeze or crackles Cardiovascular: Regular rate, Regular Rhythm, Normal S1, Normal S2, PMI Normal Abdomen: Bowel Sounds Present, Soft, Non Tender, Non-Distended Extremities: No clubbing, No cyanosis, No edema Skin: No rashes, No breakdown Lymphatic: No Cervical, Supraclavicular, or Inguinal Adenopathy Neurological: Cranial nerves II-XII grossly intact, neuro grossly intact Psych/Mental Status: Labile, at baseline Patient signed out AMA Rest of management as per Riddhi Roach NUCLEAR MEDICINE MEDICAL DIRECTOR-C's note, which I have reviewed and endorse. - Physical Exam Vital Signs Temp Pulse Resp BP Pulse Ox 97.8 F 87 16 136/83 H 100 03/25/19 14:36 03/25/19 14:36 03/25/19 14:36 03/25/19 14:36 03/25/19 14:36 Oxygen Flow Rate (L/min) 2 Oxygen Delivery Method Room Air Weight: 42 lb 8.787 oz Body Mass Index (BMI) 6.8 Finger Stick Blood Glucose 123 Intake and Output for Last 24 Hours 03/23/19 03/24/19 03/25/19 23:59 23:59 23:59 Intake Total 984 / 984 1354 / 1354 Output Total 350 / 350 Balance 634 / 634 1354 / 1354 Laboratory Tests Past 24 Hrs 03/25/19 03/25/19 03/25/19 05:25 05:25 05:25 WBC 9.9 RBC 3.69 L Hgb 12.1 Hct 35.9 L MCV 97.3 MCH 32.8 H MCHC 33.7 RDW 12.6 RDW Differential 44.8 H Plt Count 316 MPV 9.4 Immature Gran % (Auto) 0.100 Neut % (Auto) 66.2 Lymph % (Auto) 19.4 Coleman % (Auto) 13.3 H Eos % (Auto) 0.5 Baso % (Auto) 0.5 Absolute Neuts (auto) 6.6 Absolute Lymphs (auto) 1.93 Total Counted Not Reportable Sodium 139 Potassium 3.0 L Chloride 105 Carbon Dioxide 26.0 Anion Gap 8 BUN 7 Creatinine 0.55 Estim Creat Clear Calc 31.48 Est GFR (MDRD) Af Amer 144 Est GFR (MDRD) Non-Af 119 BUN/Creatinine Ratio 12.8 Glucose 138 H Calcium 8.3 L Total Bilirubin 1.00 AST 40 H ALT 27 Alkaline Phosphatase 69 Total Protein 6.3 L Albumin 3.1 L Globulin 3.2 Albumin/Globulin Ratio 1.0 Free T4 1.20 Free T3 pg/dL 03/25/19 05:25 WBC RBC Hgb Hct MCV MCH MCHC RDW RDW Differential Plt Count MPV Immature Gran % (Auto) Neut % (Auto) Lymph % (Auto) Coleman % (Auto) Eos % (Auto) Baso % (Auto) Absolute Neuts (auto) Absolute Lymphs (auto) Total Counted Sodium Potassium Chloride Carbon Dioxide Anion Gap BUN Creatinine Estim Creat Clear Calc Est GFR (MDRD) Af Amer Est GFR (MDRD) Non-Af BUN/Creatinine Ratio Glucose Calcium Total Bilirubin AST ALT Alkaline Phosphatase Total Protein Albumin Globulin Albumin/Globulin Ratio Free T4 Free T3 pg/dL 2.3 Code Visit Inpatient E&M: [id number] Disch Hosp
--- NOTE | 2019-03-26 12:54 | CASEMGMT ---
SW received a return call from Akila at [facility]. SW made referral regarding patient and questioning home situation and safety at home. They will check on patient to make sure she is ok. She said if there are any further concerns to call and let them know. Cecy CHARLES MSW
--- OUTSIDE RECORDS SUMMARY | 2019-08-18 15:02 | XMS RPT_ITS | CCD ---
:1955 External Reference #:[id number] Author Organization [facility] Care Team Providers Name Role Phone Mary Ann Unavailable Unavailable PROVIDER Unavailable Unavailable Mary Ann Unavailable Unavailable Results Result Name Value Range Unit Interpretation Flag Date Location ed prov note on 201 07-23-05 Protein mass HNO ID: [id number] Normal 04-21-20 [facility] Author: Herman Coleman MD [place] ([id number]) Service: Emergency Medicine Author Type: Physician Type: ED Provider Notes Filed: 04/21/2019 6:56 PM Note Text: ED Provider Note Patient Name: Mckenna Yu SERVICE DATE: 04/21/19 History Patient presents with: Mental Status Changes Patient was brought to the emergency department by EMS perso nnel provided history. Patient appears pleasantly confused, somewhat agita lacy times and is unable to contribute much to initial presentation. EMS wa s called as patient was walking around aimlessly and was confused. Cryse nt could not answer the date, time, present, and secondary to confusion w as transferred to the emergency department for further evaluation. Mental Status Changes Presenting symptoms: confusion and disorientation Severity: Unable to specify Timing: Unable to specify Context comment: Per chart review the results of remote alco hol and marijuana abuse Associated symptoms: agitation Associated symptoms: no abdominal pain, no difficulty breath ing, no fever, no headaches, no suicidal behavior and no vomiting PAST MEDICAL HISTORY Diagnosis Date - Arthritis - GERD (gastroesophageal reflux disease) - Hyperlipidemia - Hypothyroidism PAST SURGICAL HISTORY Procedure Laterality Date - LIGATE FALLOPIAN TUBE Tubal ligation - PAST SURGICAL HISTORY OF right ear FAMILY HISTORY Adopted: Yes Problem Relation Age of Onset - other (tuberculosis [Other]) Father Social History Tobacco Use - Smoking status: Current Every Day Smoker - Smokeless tobacco: Never Used Substance and Sexual Activity - Alcohol use: Yes - Drug use: No - Sexual activity: Not on file ALLERGIES Allergen Reactions - Penicillins Review of Systems Constitutional: Negative for fever. Gastrointestinal: Negative for abdominal pain and vomiting. Neurological: Negative for headaches. Psychiatric/Behavioral: Positive for agitation and confusion . Physical Exam BP 151/108 Pulse 103 Temp (Src) 97.7 (Temporal) Resp 2 2 Wt 110 lb (49.9kg) SpO2 100% O2 Therapy: Room Air Physical Exam Constitutional: She appears well-developed. Patient is mildly tachycardic, appears disheveled, and cache ctic. HENT: Head: Normocephalic and atraumatic. Mucous membranes Eyes: Pupils are equal, round, and reactive to light. EOM ar e normal. Neck: Neck supple. No JVD present. No neck rigidity. Cardiovascular: Regular rhythm. Heart rate is regular, there is no murmurs is mildly tachyca rdic there is no irregular beats. Pulmonary/Chest: Effort normal and breath sounds normal. No stridor. No respiratory distress. There is no respiratory distress, patient speaking in full c omplete sentences. Musculoskeletal: Normal range of motion. Neurological: She is alert. She has normal strength. She is disoriented. Patient is awake, alert. Patient is able to answer question for her name, date of , and able to give his family members including their phone number ex-. Patient however states that month is De cem, when is April and she is not on the presence name. Patient is able to follow simple commands, patient is immature with a safe and stable gait she was walking to the restroom without difficulty. Skin: Skin is warm and dry. Psychiatric: Patient appears anxious, restless. Patient is making direct eye contact. Patient does become somewhat agitated at times and confused however she can be somewhat easily redirected. Patient denies suicidal o r homicidal ideation. Patient does not appear to be responding to legal intern al stimuli. Patient does have a short temper, patient has tangential spe ech Nursing note and vitals reviewed. Diagnostic Testing ED Labs Ordered and Reviewed - No data to display Procedures ED Course / Clinical Impression Clinical Impressions as of Apr 21 1854 Cystitis Non compliance w medication regimen Low thyroid stimulating hormone (TSH) level Confusion - eval for confusion MDM / Disposition / Plan This is a 63-year-old female past history known for seizure disorder, sepsis abuse, alcohol abuse, and thyroid disorder presents t o emergency department via EMS transfer for complaints of being confused and ambulate around in public. Per chart review patient is recently being treated for a urinary tract infection is noted to have confusion at that time as well as on previous visits as well. We are initially trying to co ntact family for an accurate baseline of patient and help us with a safe disposition. In the meantime is to have a baseline history, safe disposit ion for this patient were doing a medical workup however I feel this is l ikely more of a chronic issue for patient. She does have stable vital sign s and is afebrile. Obtain basic laboratory studies including drug scr een, medications of abuse, and urinalysis to eval for urinary tra ct infection. We are attempting at this time to contact any family members or friends to obtain a baseline for this patient. Review of the medical record notes a similar presentation on 03/24/2019, the patient had a urinary tract infection was admitted to the [facility] for IV antibiotics, and possible seizures. CAT scan of the head was negative at that time, secondary to above I'm not repeating a CAT scan a t this time. 3:32 PM Spoke with Ambika Davila, patient's daughter updated her on co ndition and expressed concerns. When directly asked about patient's base line mental status over the phone was somewhat to difficult to discern w issac patient's baseline mental status is the daughter did state the patient is somewhat confused at times she does not like being in the hospital an d she would not likely be cooperative with us. This sounds over the tele phone somewhat similar to today's presentation. I have asked jo ann linares's family come to the emergency department to help us out and Ambika mies that she will come to the hospital this afternoon. Family has arrived, spent time with patient noted that she i s at baseline. There is no concern about acute change in mental status or c ondition of the patient. Laboratory studies are essentially at baseline without acute findings. It is possible of a ongoing urinary tract infectio n. I did review the previous urine culture and it only grew out nor n ormal urogenital juliano therefore there is no susceptibility for an tibiotics noted. Patient is started on Keflex with the first dose give n emergency. Patient is up, MA, at baseline per daughter at bedside who l essen the patient on Friday and is taking the patient home this wagnerin g. Laboratory studies reviewed patient was noted to have a very low TSH however free thyrotoxic in level is within normal limits. I' m not sure the etiology of this, the rest the thyroid panel is currentl y pending. Patient has had a history of hypothyroidism and she is suppo sed to be on thyroid replacement however it appears that she is not takin g this. This was given and discharge information PCP follow-up for furthe r workup. Prescriptions given to family patient's discharged home with return to ER symptoms discussed. Disposition The patient was discharged. Counseled patient and family regarding lab results and suspe cted diagnosis. As well as the need for follow-up. Discharged anand e with verbal and written instructions. They were instructed to ret urn as needed for persistent or worsening symptoms or any new concerns. Condition at disposition is unchanged. SIGNATURE: MD Herman Dupree MD 04/21/19 1448 Herman Coleman MD 04/21/19 1533 Herman Coleman MD 04/21/19 1856 ed note on ED NOTE HNO ID: [id number] [place] 04-21-2019 [facility] Author: Nisha Gale RN [place] ([id number]) Service: Emergency Medicine Author Type: Registered Nurse Type: ED Notes Filed: 04/21/2019 5:47 PM Note Text: Patient leaves alert and agitated. She self reports she has a temper, she is hungry, wants a cigarette and food. Patient states enoug h is enough!. Patient leaves with daughter and friend. Daughter aware the patient is to be dropped off at drive, as Ambika is not permitted ion the property. ED NOTE HNO ID: [id number] Normal 04-21-2019 [facility] Author: Beka Irving RN [place] ([id number]) Service: Emergency Medicine Author Type: Registered Nurse Type: ED Notes Filed: 04/21/2019 5:39 PM Note Text: ..Pt advised on name of medication, why the medication was b eing administered, possible side effects, and how medication migh t make them feel once administered. Name of medication keflex ED NOTE HNO ID: [id number] Normal 04-21-2019 [facility] Author: Nisha Gale RN [place] ([id number]) Service: Emergency Medicine Author Type: Registered Nurse Type: ED Notes Filed: 04/21/2019 5:36 PM Note Text: Patient is angry. She wants to leave. She reports if the Kep pra does not finish soon she is ripping out the IV and leaving. Her daugh sulaiman is at bedside and plans to take her home. This RN explained to jodee luu she only had 7 minutes left on her IV medication. The patient is agit ated, anxious, and speaking with an elevated tone. She states I want out o f here because I have had enough. ED NOTE HNO ID: [id number] Normal 04-21-2019 [facility] Author: CHANDLER Velasquez [place] ([id number]) Service: Emergency Medicine Author Type: Registered Nurse Type: ED Notes Filed: 04/21/2019 5:12 PM Note Text: Clean catch urine specimen obtained and sent. ED NOTE HNO ID: [id number] Normal 04-21-2019 [facility] Author: CHANDLER Velasquez [place] ([id number]) Service: Emergency Medicine Author Type: Registered Nurse Type: ED Notes Filed: 04/21/2019 5:01 PM Note Text: Patient sitting in bed, calm, daughter at bedside. Patient a lert ,awake and follow commands without difficulty. ED NOTE HNO ID: [id number] Normal 04-21-2019 [facility] Author: CHANDLER Velasquez [place] ([id number]) Service: Emergency Medicine Author Type: Registered Nurse Type: ED Notes Filed: 04/21/2019 4:52 PM Note Text: Patient resting in bed,speaking with daughter and drinking a bottle of water. ED NOTE HNO ID: [id number] Normal 04-21-2019 [facility] Author: CHANDLER Velasquez [place] ([id number]) Service: Emergency Medicine Author Type: Registered Nurse Type: ED Notes Filed: 04/21/2019 4:44 PM Note Text: Patient visiting with daughter. Asked for another bottle of water. Reports her chronic back pain is bothering her and requests repositioning. No signs of postictal symptoms. ED NOTE HNO ID: [id number] Normal 04-21-2019 [facility] Author: CHANDLER Velasquez [place] ([id number]) Service: Emergency Medicine Author Type: Registered Nurse Type: ED Notes Filed: 04/21/2019 4:52 PM Note Text: Patient has possible seizure. No respiratory difficulty, las lacy less than 30 seconds. No emesis,incontince, remained focused and patie nt awake and conversing when episode ended. Patient was sitting in bed wi th tightening of upper extremities and small amount of jerking during epis ode. Daughter held patient without difficulty. Seizure pads applied to bed rail. ED NOTE HNO ID: [id number] Normal 04-21-2019 [facility] Author: CHANDLER Velasquez [place] ([id number]) Service: Emergency Medicine Author Type: Registered Nurse Type: ED Notes Filed: 04/21/2019 4:54 PM Note Text: Spoke with Steven, Patients . He states he left the [facility] in a hurry this morning for a dentist appointment. He forgot to get the patient her medication. Mckenna told him she was going for a walk and left the house when he did. He reports the patient had a fall a couple year s ago and since she has had memory problems. She is not able to tell y ou the year,president and several other current events as her short term memory was affected. Steven reports the patients current demeanor and behavior was not abnormal for her. He also reports the patient did not re ceive her medications this morning, including the medication for seizu res. He asks the daughter, Ambika , bring the patient home if possible as she is at bedside. Steven reports patient should be dropped off at end o f [address] because Ambika had been evicted from the home last week. Dr. Coleman aware . ED NOTE HNO ID: [id number] Normal 04-21-2019 [facility] Author: CHANDLER Velasquez [place] ([id number]) Service: Emergency Medicine Author Type: Registered Nurse Type: ED Notes Filed: 04/21/2019 3:55 PM Note Text: Patient resting calmly in bed. She reports the shivering is improving. She seems less anxious and agitated at this time. ED NOTE HNO ID: [id number] Normal 04-21-2019 [facility] Author: CHANDLER Velasquez [place] ([id number]) Service: Emergency Medicine Author Type: Registered Nurse Type: ED Notes Filed: 04/21/2019 3:54 PM Note Text: Another bottle of water given to patient. This RN asked crys ent if she is normally this thirsty and she reports no, only today. She has requested coffee. notified. ED NOTE HNO ID: [id number] Normal 04-21-2019 [facility] Author: Nisha Gale RN [place] ([id number]) Service: Emergency Medicine Author Type: Registered Nurse Type: ED Notes Filed: 04/21/2019 3:37 PM Note Text: Patient denies nausea,vomitting,abnormal pain,difficulty wit h BM's. She denies daily drinking but reports marijuana use at times. He r appetite has not been well, however she is unable to say if she has had w eight loss. She reports having excessive thirst today. No hallucinations noted. ED NOTE HNO ID: [id number] [place] 04-21-2019 [facility] Author: Nisha Gale RN [place] ([id number]) Service: Emergency Medicine Author Type: Registered Nurse Type: ED Notes Filed: 04/21/2019 2:56 PM Note Text: Registration at bedside. This RN gave her another pillow beh ind her back. The patient continues to shiver and state you guys are jessica ng me a nervous wreck...ohh,hmmm lord!. She dropped her pen when tr nimesh to sign registration paperwork. Patient continues to reposition and reports her back hurts. ED NOTE HNO ID: [id number] [place] 04-21-2019 [facility] Author: Nisha Gale RN [place] ([id number]) Service: Emergency Medicine Author Type: Registered Nurse Type: ED Notes Filed: 04/21/2019 2:51 PM Note Text: More warm blankets applied. ED NOTE HNO ID: [id number] Normal 04-21-2019 [facility] Author: Nisha Gale RN [place] ([id number]) Service: Emergency Medicine Author Type: Registered Nurse Type: ED Notes Filed: 04/21/2019 2:47 PM Note Text: Patient denies pain, she is sitting on bed with legs danglin g. This RN gave pillows to support back. She continues to shiver but is not wanting more blankets. She wants to know how long she will be here. ED NOTE HNO ID: [id number] Normal 04-21-2019 [facility] Author: CHANDLER Velasquez [place] ([id number]) Service: Emergency Medicine Author Type: Registered Nurse Type: ED Notes Filed: 04/21/2019 2:42 PM Note Text: Patient continues to be thirsty. Another bottle of water giv en. She lucio asked several Times if this is [facility]. This nurse c ontinues to orient. ED NOTE HNO ID: [id number] Normal 04-21-2019 [facility] Author: CHANDLER Velasquez [place] ([id number]) Service: Emergency Medicine Author Type: Registered Nurse Type: ED Notes Filed: 04/21/2019 3:34 PM Note Text: Patient is shivering,complaining of being cold. WARM BLANKET S APPLIED. She continues to say her nerves are shot and she wants outa here. She reports her ex- Steven Yu is probably at work or slee ping but gave permission to call. Steven did not answer call. Her daughter Myron morris works at the [employer]. She complaints of thirst-bottle water give n and drank. ED NOTE HNO ID: [id number] Normal 04-21-2019 [facility] Author: Nisha Gale RN [place] ([id number]) Service: Emergency Medicine Author Type: Registered Nurse Type: ED Notes Filed: 04/21/2019 2:48 PM Note Text: Patient ambulated to bathroom without difficulty. She was aw are we needed urine sample. A hat was placed in toilet. Patient dumped the urine out of hat. ED NOTE HNO ID: [id number] Normal 04-21-2019 [facility] Author: Danisha White) CHANDLER Brady [place] ([id number]) Service: ? Author Type: Registered Nurse Type: ED Notes Filed: 04/21/2019 2:18 PM Note Text: Pt arrives via [facility] Sitting upright on cot, pt yelling out, requesting to leave, stating we are asking too many questions and are making here a nervous wreck Per EMS 911 was called because bystander noticed patient to be walking and seemed confused ED NOTE HNO ID: [id number] Normal 04-21-2019 [facility] Author: Nisha (Rn) CHANDLER Gale [place] ([id number]) Service: Emergency Medicine Author Type: Registered Nurse Type: ED Notes Filed: 04/21/2019 2:44 PM Note Text: Patient is angry about the blood pressure cuff and process o f arriving. She has voiced upset about questions. She states she does no t want to be here and wants to be left alone. Patient appears disheveled and confused. Encounters Date Type Reason Provider Location 04-30-2018 Ambulatory Oscar Reese UNKNOWN [facility] ([id number]) PROVIDER Oscar Reese Payers Payer Name Policy Number Location [employer] [facility] ([id number]) The following information is from the original human readable contentNo Payer Records Found Summary Purpose Family History No Family History Records FoundNo Family History Records Found Advance Directives No Advanced Directives Records FoundNo Advanced Directives Records Found Additional Source Comments FOR RECORDS PERTAINING TO PATIENTS WHO ARE OR HAVE BEEN ENROLLED IN A CHEMICAL DEPENDENCY/SUBSTANCE ABUSE PROGRAM, SOME INFORMATION MAY BE OMITTED. This clinical summary was aggregated from multiple sources. Caution should be exercised in using it in the provision of clinical care. This summary normalizes information from multiple sources, and as a consequence, information in this document may materially changethe coding, format and clinical context of patient data. In addition, data may be omittedin some cases. CLINICAL DECISIONS SHOULD BE BASED ON THE PRIMARY CLINICAL RECORDS. [facility] provides no warranty or guarantee of the accuracy or completeness of information in this document. UNRECOGNIZED CONTENT PROVIDED BELOW FOR UNRECOGNIZED SECTION INFORMATION SOURCE DATE CREATED AUTHOR AUTHOR'S ORGANIZATIO N 05/04/2018 [facility] DATE CREATED AUTHOR AUTHOR'S ORGANIZATIO N 04/21/2019 [facility] Adiel herman
== END 2019-03-25 14:39 | disposition left against medical advice (07) | DRG 101 ==
LOC: ED 11:46 → PCU 14:45
PROVIDERS: Admitting Provider Hospitalist; Emergency Provider Emergency Medicine; Family Provider Family Medicine; PCP Family Medicine; Visit Provider Student in an Organized Health Care Education/Training Program
DX: G40.909 Epilepsy, unspecified, not intractable, without status epilepticus (principal); N39.0 Urinary tract infection, site not specified; E03.9 Hypothyroidism, unspecified; F17.210 Nicotine dependence, cigarettes, uncomplicated; F10.10 Alcohol abuse, uncomplicated; Y90.0 Blood alcohol level of less than 20 mg/100 ml; K21.9 Gastro-esophageal reflux disease without esophagitis; E78.5 Hyperlipidemia, unspecified; F32.9 Major depressive disorder, single episode, unspecified; I45.81 Long QT syndrome; F12.10 Cannabis abuse, uncomplicated; F13.10 Sedative, hypnotic or anxiolytic abuse, uncomplicated; Z79.82 Long term (current) use of aspirin; Z91.14 Patient's other noncompliance with medication regimen; Z79.899 Other long term (current) drug therapy
CPT/HCPCS: 36415; 70450; 71045; 80048; 80053; 80307; 80320; 81001; 82962; 83735; 84439; 84443; 84481; 84484; 85025; 85610; 85730; 87086; 87088; 93005; 99218; 99285; J7030; A4216; G0378; G0480; J0744

== ENCOUNTER 2020-01-23 21:13 | Observation (INO) | payer OTHER, MEDICARE, SELFPAY ==
[2020-01-23] VITALS (7 sets, daily range): BP systolic 112–162; BP diastolic 78–107; PULSE 84–116; RESP 23–33; TEMP 36.6–37.7; O2SAT 91–99; BMI 19.3; BMI 18.6
--- NOTE | 2020-01-23 21:18 | EKG12_ITS ---
Test Reason : SEIZURE Blood Pressure : / mmHG Vent. Rate : 104 BPM Atrial Rate : 104 BPM P-R Int : 170 ms QRS Dur : 066 ms QT Int : 362 ms P-R-T Axes : 071 044 071 degrees QTc Int : 476 ms Sinus tachycardia Right atrial enlargement Septal infarct , age undetermined Abnormal ECG Confirmed by NICK COATS, BAO ([id number]), movie editor SAMINA ANDRADE ([id number]) on 01/24/2020 3:24:15 PM Referred By: MR Confirmed By:BAO ROMERO MD
--- NOTE | 2020-01-23 21:18 | RAD_ITS ---
HISTORY: MULTIPLE SEIZURES TONIGHT, AMS EXAM: XR Chest 1 View COMPARISON: March 24, 2019 FINDINGS: LINES/DEVICES: None. LUNGS: There are chronic interstitial changes. No pneumothorax. No consolidation or effusion. MEDIASTINUM AND CARDIOVASCULAR STRUCTURES: Cardiac silhouette not enlarged. Central airways and mediastinal contour are unremarkable. Athersclerotic plaque within the aortic arch. BONES AND SOFT TISSUES: Thoracic spondylosis. RAD/Chest 1 View (Portable) IMPRESSION: Chronic interestitial changes. No radiographic evidence of acute cardiopulmonary disease. at 2305 Reported and signed by: Moose Padron MD Electronically Signed: Moose Padron MD at 23:04 EDT Tel , Service support ,
--- NOTE | 2020-01-23 21:18 | CT_ITS ---
STUDY: CT BRAIN WITHOUT CONTRAST REASON FOR EXAM: Female, 64 years old. SEIZURE/? BLEED. Hx of ETOH abuse and hypothyroid RADIATION DOSAGE (If Supplied By Facility): CTDIvol = ( 44.99 ) mGy, DLP = ( 779.24 ) mGycm TECHNIQUE: Transaxial CT imaging of the brain was performed without administration of intravenous contrast material. Individualized dose optimization techniques were used for this CT. COMPARISON: March 24, 2019 FINDINGS: Normal soft tissue structures. Normal calvarium. Moderate atrophy and periventricular white matter ischemic changes.. Normal basal ganglia and thalami. Normal brainstem. Normal cerebellum. Partial empty sella deformity. There is no intracranial hemorrhage. There are no findings of an acute ischemic infarction. Postsurgical changes of the right orbit Moderate mucosal thickening of left maxillary sinus CT/Brain/Head without Contrast IMPRESSION: Moderate atrophy and periventricular white matter ischemic changes. No evidence for acute bleed. If concern for acute infarct MRI recommended Electronically Signed: Miki Navarrete MD at 22:38 EDT , Service support ,
[2020-01-23] MEDS: LORazepam 2 MG/ML Syringe IV ×2 (21:31→21:39)
[2020-01-23] MEDS: levETIRAcetam IV 1,000 MG/100 ML BAG 400 MG IV (21:31)
[2020-01-23 21:40] LABS: Bedside Glucose 104 mg/dL (70-110)
[2020-01-23 21:50] LABS: Absolute Lymphocyte Count 1.07 X10^3/uL (0.83-4.51); Absolute Neutrophil Count 15.7 X10^3/uL (2.0-7.7); Basophil# 0.07 X10^3/uL; Basophil% 0.4 % (0-1); Eosinophil# 0.06 X10^3/uL; Eosinophils% 0.3 % (0-5); Hematocrit 40.6 % (37-47); Hemoglobin 13.7 g/dL (12.0-15.0); Lymphocyte # 1.07 X10^3/ul (4.0); Lymphocyte % 5.8 % (19-41); Mean Corp Hgb Conc 33.7 g/dL (32-36); Mean Corpuscular Hgb 33.3 pg (27.0-32.0); Mean Corpuscular Volume 98.8 fL (81-99); Mean Platelet Vol. 9.3 fl (6.2-12.0); Monocyte# 1.41 X10^3/uL; Monocyte% 7.7 % (0-10); NRBC Flagged by Analyzer 0 % (0-5); Neutrophil # 15.66 X10^3/uL (2.7-7.7); Neutrophil % 85.4 % (47-70); Platelet Count 455 K/mm3 (150-450); RBC Distribution Width CV 12.1 % (11.6-14.6); RBC Distribution Width SD 44.1 fl (35.1-43.9); Red Blood Count 4.11 M/mm3 (4.2-5.4); White Blood Count 18.3 K/mm3 (4.4-11.0)
[2020-01-23 21:51] LABS: Allen Test POS; Base Excess 3 mmol/L (-2 to +2); Bicarbonate 27.4 mmol/L (22-26); Blood Gas Specimen Type ART; O2 Delivery Device Nasal Can; PO2 68 mmHG (75-100); SITE L Radial; SO2 94 % (95-99); Total Carbon Dioxide 29 mmol/L; pCO2 41.9 mmHg (35-45); pH 7.42 (7.35-7.45)
--- NOTE | 2020-01-23 21:51 | CT_ITS ---
HISTORY: LT HEMIPARESIS/SEIZURE. Hx of ETOH abuse and hypothyroid TECHNIQUE: Routine carotid CT angiogram protocol was performed without and with IV contrast. In addition, images were obtained of the [place] of [place]. Nascet criteria using the distal ICAs for comparison were used for evaluation of stenoses. 3D reconstructions were reviewed. A radiation dose optimization technique was used for this scan. IV Contrast dosage and agent: iSOVUE 300 75ML COMPARISON: CT scan of the brain from less than one hour earlier. An MRI of the brain is available from September 01, 2017. FINDINGS: --NECK: AORTIC ARCH AND BRANCHES: Atherosclerotic plaque within the aortic arch without aneurysm RIGHT CCA: No occlusion, significant stenosis or dissection. RIGHT ICA: No occlusion, significant stenosis or dissection. LEFT CCA: No occlusion, significant stenosis or dissection. LEFT ICA: Trace calcific plaque at the left carotid bulb but without stenosis RIGHT VERTEBRAL ARTERY: No occlusion, significant stenosis or dissection. LEFT VERTEBRAL ARTERY: No occlusion, significant stenosis or dissection. NECK SOFT TISSUES: Unremarkable. LUNG APICES: Pleural-parenchymal airspace disease is present. A few tiny bullae are present suggestive of early/minimal emphysematous disease BONES: Multilevel degenerative disc disease. Vertebral body height is normal. Degenerative malalignment. Facet arthropathy. Patient is edentulous. Fluid layers within the left maxillary sinus. Mucoperiosteal thickening within the right side of the nasal cavity with some minimal ethmoid air cell disease. The right mastoid air cells of been resected with some fluid within the that has been created by the evacuation of the right mastoid air cells. Some fluid is present within the right middle ear. Middle ear ossicles are not identified and may have been resected. There is some soft tissue possibly eroding into the right temporal bone. --HEAD: --Anterior circulation: ICAs: No significant stenosis at the intracranial/visualized segments. ACAs: No significant stenosis at the visualized segments. ACOM: Present. MCAs: No significant stenosis at the visualized segments. --Posterior circulation: PCOMs: Right posterior communicating artery provides a preponderance of flow to the right PRODUCT DEVELOPMENT TECHNICIAN. A tiny left posterior communicating artery is suspected circuit breaker assembler: No significant stenosis at the visualized segments. BASILAR ARTERY: No significant stenosis. VERTEBRAL ARTERIES: No significant stenosis at the intradural/visualized segments. No evidence of intracranial aneurysm or vascular malformation. CT/CTA Head AND Neck W/ Contrast IMPRESSION: Negative CTA Head and Neck. Individualized dose optimization techniques were used for this CT. at 9532 Reported and signed by: Moose Padron MD Electronically Signed: Moose Padron MD at 23:16 EDT Tel , Service support ,
[2020-01-23 21:53] LABS: Prothrombin Time (Protime)PT. 13.2 SECONDS (11.7-14.9)
[2020-01-23 21:54] LABS: Partial Thromboplast Time 40.9 Seconds (24.1-36.2)
[2020-01-23 21:58] LABS: Alcohol, Blood (Medical)-Serum < 3.0 mg/dL
[2020-01-23 22:01] LABS: ALB/GLOB Ratio 0.9 RATIO (0.9-2.4); AST(SGOT) 24 U/L (15-37); Alanine Aminotransfer ALT/SGPT 24 U/L (13-56); Albumin, Serum 3.5 g/dL (3.2-5.0); Alkaline Phosphatase 52 U/L (45-117); Anion Gap 14 (5-15); BUN 11 mg/dL (7-18); BUN/Creat Ratio 13.4 RATIO (10-20); Calcium,Total 8.9 mg/dL (8.5-10.1); Chloride 100 mmol/L (98-107); Creatinine, Serum 0.82 mg/dL (0.55-1.02); EST Glomerular Filtration Rate 74 mL/min (>60); Est Glom Filt Rate - Afr Amer 90 mL/min (>60); Estimated Creatinine Clearance 54.74 ml/min; Globulin 3.9 g/dL (2.2-4.2); Glucose 104 mg/dL (74-106); Potassium 3.9 mmol/L (3.5-5.1); Protein, Total 7.4 g/dL (6.4-8.2); Sodium Level 134 mmol/L (136-145)
--- NOTE | 2020-01-23 22:30 | ED.RN ---
PATIENT WAS INCONTINENT OF A LARGE LIQUID BROWN STOOL THAT MOST LIKELY OCCURRED DURING HER SEIZURE. INCONTINENCE CARE DONE. PATIENT WAS THEN STRAIGHT CATHED FOR URINE. PATIENT DID NOT RESPOND DURING THE STRAIGHT CATH AND SLEPT THROUGH IT. URINE WAS CLEAR YELLOW.
[2020-01-23 22:40] LABS: Lactic Acid 5.4 mmol/L (0.4-1.9)
[2020-01-23 22:51] LABS: Bacteria 0 SEEN /hpf (None Seen); Mucous, Urine 0 SEEN /hpf (<or=2+); Red Blood Cells-Urine 0 SEEN /hpf (0-5); Squamous Epithelial Cells - UA 0 SEEN /hpf (5-10); White Blood Cells 0 SEEN /hpf (0-5)
--- NOTE | 2020-01-23 23:01 | ED.VIS.GEN ---
History of Present Illness Chief Complaint: Seizure Narrative: Patient presenting for evaluation secondary to seizure. Patient has a underlying seizure history, supposed to be taking Keppra. Review of the patient's records shows that she has been here multiple times due to noncompliance with her medications. Patient apparently was having seizures at home this evening, and EMS was contacted. They reports that upon their arrival she was again alert and oriented and then just prior to delivery to the hospital the patient had tonic-clonic seizures again. They report shaking of the upper and lower extremities bilaterally. Patient is somewhat sedate upon arrival but denies any pain. She is unable to tell me if she is recently missed any of her medication doses or any recent head injuries fevers neck stiffness abnormal skin rashes. Past Medical History - Allergies and Home Meds Allergies/Adverse Reactions: Allergies Penicillins Allergy (Verified 01/23/20 21:41) Unknown Primary Care Physician: Oscar Reese MD [Primary Care Provider] - Past Medical History: - - Past history of seizures, past history of polysubstance abuse Surgical History: - - tubal ligation in her 20's Smoking Status: Current every day smoker - Family History Paternal Family History: Reports: Unknown Maternal Family History: Reports: Unknown Review of Systems ROS: Unable to Obtain Physical Exam Vital Signs/Narrative: Vital Signs Temp Pulse Resp BP Pulse Ox 01/23/20 22:11 94 26 H 142/103 H 98 01/23/20 21:36 102 H 26 H 153/107 H 91 01/23/20 21:25 97.8 F 116 H 33 H 162/106 H 94 01/23/20 21:16 97.8 F 116 H 33 H 162/106 H 94 General: Well developed, Cachectic, Acute Distress Head: Normocephalic, Atraumatic Eyes: - - Eyes are open, pupils are equal round and by laterally reactive. Patient has leftward going nystagmus. Patient is able to move her eyes both laterally to the left and laterally to the right. She does not appear to have any visual field cuts. ENT: Moist mucous membranes, No rhinorrhea Neck: Supple, Nontender Cardiovascular: Regular rhythm, No murmurs, Tachycardia, - - 2+ radial pulses bilaterally symmetric Respiratory: No distress, CTA bilaterally, Chest nontender Abdomen: Soft, Nontender, Nondistended, Normal bowel sounds Extremities: Nontender, No edema Skin: Normal color, No rash Neurological: Alert, - - Patient is having tremors of the face, nystagmus of the eyes, and twitching of the right side of the body. Patient has evidence of flaccidity on the left including her left leg and left arm, but no evidence of facial droop. Patient has dysarthria and some a aphasia but is able to answer 1 question correctly, and follow commands with her right side. NIH stroke scale was calculated as 12. Diagnostic/Tx/Re-eval Clinical Impression(s) from Imaging Studies Brain CT 01/23/20 21:18 IMPRESSION: Moderate atrophy and periventricular white matter ischemic changes. No evidence for acute bleed. If concern for acute infarct MRI recommended Electronically Signed: Miki Navarrete MD at 22:38 EDT , Service support , Chest X-Ray 01/23/20 21:18 IMPRESSION: Chronic interestitial changes. No radiographic evidence of acute cardiopulmonary disease. at 2305 Reported and signed by: Moose Padron MD Electronically Signed: Moose Padron MD at 23:04 EDT Tel , Service support , Head/Neck CTA 01/23/20 21:51 IMPRESSION: Negative CTA Head and Neck. Individualized dose optimization techniques were used for this CT. at 2317 Reported and signed by: Moose Padron MD Electronically Signed: Moose Padron MD at 23:16 EDT Tel , Service support , Laboratory Data 01/23/20 01/23/20 01/23/20 21:20 21:20 21:20 WBC 18.3 H RBC 4.11 L Hgb 13.7 Hct 40.6 MCV 98.8 MCH 33.3 H MCHC 33.7 RDW Std Deviation 44.1 H RDW Coeff of Dariela 12.1 Plt Count 455 H MPV 9.3 Immature Gran % (Auto) 0.400 Neut % (Auto) 85.4 H Lymph % (Auto) 5.8 L Bay % (Auto) 7.7 Eos % (Auto) 0.3 Baso % (Auto) 0.4 Absolute Neuts (auto) 15.7 H Absolute Lymphs (auto) 1.07 Nucleated RBC % 0 PT 13.2 INR 1.0 APTT 40.9 H Specimen Type Sample Site pH Bicarbonate Actual POC Total CO2 Base Excess O2 Saturation ABG pCO2 ABG pO2 Hector Test O2 Delivery Device Liter Flow Blood Gas Notified Whom Sodium 134 L Potassium 3.9 Chloride 100 Carbon Dioxide 20.0 L Anion Gap 14 BUN 11 Creatinine 0.82 Estim Creat Clear Calc 54.74 Est GFR (MDRD) Af Amer 90 Est GFR (MDRD) Non-Af 74 BUN/Creatinine Ratio 13.4 Glucose 104 Lactic Acid Calcium 8.9 Total Bilirubin 0.30 AST 24 ALT 24 Alkaline Phosphatase 52 Ammonia Troponin I < 0.015 Total Protein 7.4 Albumin 3.5 Globulin 3.9 Albumin/Globulin Ratio 0.9 Urine Color Urine Clarity Urine pH Ur Specific [place] Urine Protein Urine Glucose (UA) Urine Ketones Urine Occult Blood Urine Nitrite Urine Bilirubin Urine Urobilinogen Ur Leukocyte Esterase Urine RBC Urine WBC Ur Squamous Epith Cells Urine Bacteria Urine Mucus Urine Opiates Screen Urine Methadone Screen Ur Barbiturates Screen Ur Phencyclidine Scrn Ur Amphetamines Screen U Methamphetamin-MDMA U Benzodiazepines Scrn Urine Cocaine Screen U Cannabinoids Screen Ur Drug Screen Comment Ethyl Alcohol POC Glucose 01/23/20 01/23/20 01/23/20 21:20 21:20 21:20 WBC RBC Hgb Hct MCV MCH MCHC RDW Std Deviation RDW Coeff of Dariela Plt Count MPV Immature Gran % (Auto) Neut % (Auto) Lymph % (Auto) Bay % (Auto) Eos % (Auto) Baso % (Auto) Absolute Neuts (auto) Absolute Lymphs (auto) Nucleated RBC % PT INR APTT Specimen Type Sample Site pH Bicarbonate Actual POC Total CO2 Base Excess O2 Saturation ABG pCO2 ABG pO2 Hector Test O2 Delivery Device Liter Flow Blood Gas Notified Whom Sodium Potassium Chloride Carbon Dioxide Anion Gap BUN Creatinine Estim Creat Clear Calc Est GFR (MDRD) Af Amer Est GFR (MDRD) Non-Af BUN/Creatinine Ratio Glucose Lactic Acid 5.4 H* Calcium Total Bilirubin AST ALT Alkaline Phosphatase Ammonia 22.0 Troponin I Total Protein Albumin Globulin Albumin/Globulin Ratio Urine Color Urine Clarity Urine pH Ur Specific [place] Urine Protein Urine Glucose (UA) Urine Ketones Urine Occult Blood Urine Nitrite Urine Bilirubin Urine Urobilinogen Ur Leukocyte Esterase Urine RBC Urine WBC Ur Squamous Epith Cells Urine Bacteria Urine Mucus Urine Opiates Screen Urine Methadone Screen Ur Barbiturates Screen Ur Phencyclidine Scrn Ur Amphetamines Screen U Methamphetamin-MDMA U Benzodiazepines Scrn Urine Cocaine Screen U Cannabinoids Screen Ur Drug Screen Comment Ethyl Alcohol < 3.0 POC Glucose 01/23/20 01/23/20 01/23/20 21:36 21:43 22:45 WBC RBC Hgb Hct MCV MCH MCHC RDW Std Deviation RDW Coeff of Dariela Plt Count MPV Immature Gran % (Auto) Neut % (Auto) Lymph % (Auto) Bay % (Auto) Eos % (Auto) Baso % (Auto) Absolute Neuts (auto) Absolute Lymphs (auto) Nucleated RBC % PT INR APTT Specimen Type ART Sample Site L Radial pH 7.42 Bicarbonate Actual 27.4 H POC Total CO2 29 Base Excess 3 H O2 Saturation 94 L ABG pCO2 41.9 ABG pO2 68 L Hector Test POS O2 Delivery Device Nasal Can Liter Flow 2.0 Blood Gas Notified Whom ED Sodium Potassium Chloride Carbon Dioxide Anion Gap BUN Creatinine Estim Creat Clear Calc Est GFR (MDRD) Af Amer Est GFR (MDRD) Non-Af BUN/Creatinine Ratio Glucose Lactic Acid Calcium Total Bilirubin AST ALT Alkaline Phosphatase Ammonia Troponin I Total Protein Albumin Globulin Albumin/Globulin Ratio Urine Color Urine Clarity Urine pH Ur Specific [place] Urine Protein Urine Glucose (UA) Urine Ketones Urine Occult Blood Urine Nitrite Urine Bilirubin Urine Urobilinogen Ur Leukocyte Esterase Urine RBC Urine WBC Ur Squamous Epith Cells Urine Bacteria Urine Mucus Urine Opiates Screen NEGATIVE Urine Methadone Screen NEGATIVE Ur Barbiturates Screen NEGATIVE Ur Phencyclidine Scrn NEGATIVE Ur Amphetamines Screen NEGATIVE U Methamphetamin-MDMA NEGATIVE U Benzodiazepines Scrn NEGATIVE Urine Cocaine Screen NEGATIVE U Cannabinoids Screen POSITIVE H Ur Drug Screen Comment Ethyl Alcohol POC Glucose 104 01/23/20 22:45 WBC RBC Hgb Hct MCV MCH MCHC RDW Std Deviation RDW Coeff of Dariela Plt Count MPV Immature Gran % (Auto) Neut % (Auto) Lymph % (Auto) Bay % (Auto) Eos % (Auto) Baso % (Auto) Absolute Neuts (auto) Absolute Lymphs (auto) Nucleated RBC % PT INR APTT Specimen Type Sample Site pH Bicarbonate Actual POC Total CO2 Base Excess O2 Saturation ABG pCO2 ABG pO2 Hector Test O2 Delivery Device Liter Flow Blood Gas Notified Whom Sodium Potassium Chloride Carbon Dioxide Anion Gap BUN Creatinine Estim Creat Clear Calc Est GFR (MDRD) Af Amer Est GFR (MDRD) Non-Af BUN/Creatinine Ratio Glucose Lactic Acid Calcium Total Bilirubin AST ALT Alkaline Phosphatase Ammonia Troponin I Total Protein Albumin Globulin Albumin/Globulin Ratio Urine Color Yellow Urine Clarity Clear Urine pH 7.0 Ur Specific [place] 1.020 Urine Protein Negative Urine Glucose (UA) Normal Urine Ketones Negative Urine Occult Blood Negative Urine Nitrite Negative Urine Bilirubin Negative Urine Urobilinogen Normal Ur Leukocyte Esterase Negative Urine RBC 0 SEEN Urine WBC 0 SEEN Ur Squamous Epith Cells 0 SEEN Urine Bacteria 0 SEEN Urine Mucus 0 SEEN Urine Opiates Screen Urine Methadone Screen Ur Barbiturates Screen Ur Phencyclidine Scrn Ur Amphetamines Screen U Methamphetamin-MDMA U Benzodiazepines Scrn Urine Cocaine Screen U Cannabinoids Screen Ur Drug Screen Comment Ethyl Alcohol POC Glucose - EKG Initial EKG Interpretation: - - Sinus tachycardia with rate of [address] segments normal T waves normal OK and QTc intervals no evidence of acute ischemia or arrhythmia - Medical Decision Making Patient presented secondary to a seizure. Upon arrival, the patient had twitching of the right side of her face, right arm, and left going nystagmus but she was able to speak, and follow commands on her right side. She was flaccid on the left. Her initial NIH was 12, but as this is associated with seizure it seems more likely that this is from Ta's paralysis rather than from ischemic stroke so stroke team was not activated. CT imaging of the brain was found to be negative. CBC demonstrated a leukocytosis of 18 likely reactive. Chemistry and lactic acid panel showed the patient have a lactic acid of 5. Urinalysis negative for infection. Chest x-ray by my personal review demonstrates no evidence of acute infiltrate. Patient continued to have flaccid paralysis of the left side so I ordered CT angiogram of the head and neck which per radiology was found to be negative. Repeat evaluation of the patient multiple times showed improvement of her seizure activity after a total of 4 mg of Ativan had 1000 mg of IV Keppra. She was ordered fluids for her lactic acidosis. Patient had decreased mental status likely secondary to the benzodiazepines but was continuing to protect her airway. Repeat evaluation of the patient at 1130 shows withdrawal to pain of the left upper extremity and left lower extremity likely making the patient's flaccid paralysis secondary to Ta's paralysis as noted above. Patient requires admission at this point. She will be admitted under the hospitalist. - Critical Care Time Critical care time (excluding procedures): 30-74 minutes ED Disposition - Plan for ED Patient: Disposition: Acute Care Hospital [facility] Diagnosis: Seizure, Ta's paralysis
[2020-01-23 23:03] LABS: Color, Urine Yellow (Yellow); Glucose, Dipstick Normal (Normal); Ketone-Dipstick Negative (Negative); Leukocyte Esterase-Dipstick Negative /ul (Negative); Nitrite-Dipstick Negative (Negative); Occult Blood-Urine Negative /ul (Negative); Protein-Dipstick Negative (Negative); Urine Bilirubin Dipstick Negative (Negative); Urine Clarity Clear (Clear); Urine Urobilinogen Normal (Normal)
[2020-01-23 23:15] LABS: Amphetamine Urine VISTA NEGATIVE (<1000 ng/mL); Barbiturate Urine VISTA NEGATIVE (< 200 ng/mL); Benzodiazepine Urine VISTA NEGATIVE (< 200 ng/mL); Cocaine Urine VISTA NEGATIVE (< 300 ng/mL); Ecstacy Urine VISTA NEGATIVE (< 500 ng/mL); Methadone Urine VISTA NEGATIVE (< 300 ng/mL); PCP Urine VISTA NEGATIVE (< 25 ng/mL); THC Urine VISTA POSITIVE (< 50 ng/mL); Vista UDS pH Range 7
--- NOTE | 2020-01-23 23:18 | ED.RN ---
DR. LAURA JUST TOLD THIS NURSE THAT PATIENT IS NOT SEPTIC. HE BELIEVES ALL OF HER ABNORMAL LAB VALUES MILANA D/T HER SEIZURE ACTIVITY. HER LAB VALUES TRIGGERED SEPSIS , BUT HE STATES SHE IS NOT.
[2020-01-23] MEDS: 0.9% Normal Saline 1,000 ML 999 ML IV (23:22)
--- NOTE | 2020-01-23 23:28 | HP.PCM_ITS ---
Problem List (1) Seizure Status: Acute (2) Ta's paralysis Status: Acute (3) Nicotine addiction Status: Chronic Qualifiers: Nicotine product type: cigarettes (4) Hypothyroidism Status: Chronic (5) GERD (gastroesophageal reflux disease) Status: Chronic (6) Macrocytosis without anemia Status: Chronic (7) Seizure disorder Status: Chronic (8) History of alcohol abuse Status: Chronic Comment: dtr states she drank to relieve hip pain and she only drinks occasionally now (9) Left ventricular hypertrophy Status: Chronic Comment: Mild on echocardiogram done in July 2014 History of Present Illness Date of Admission: 01/23/20 Chief Complaint: SEIZURE History was taken from ED doctor because at the time of examination patient had received a total of 4 mg of Ativan and she was obtunded. The patient is a 64 year old F with a significant for polysubstance abuse; seizure disorder; tobacco abuse; previous alcohol abuse; and noncompliance who present to emergency department with seizure. Patient was brought to the emergency department by paramedics. Reportedly she had a tonic-clonic clonic seizure at home. Also while in the EMS track she also had another tonic clonic seizure. At the emergency department she had a partial seizures with paralysis of the left arm and also had nystagmus. She was noted to be having twitches. She has been admitted at a hospital in the past multiple times because of seizures. Past Medical History Past Medical History (Chronic Problems): Chronic Problems Nicotine addiction (Chronic) Hypothyroidism (Chronic) GERD (gastroesophageal reflux disease) (Chronic) Macrocytosis without anemia (Chronic) Seizure disorder (Chronic) History of alcohol abuse (Chronic) dtr states she drank to relieve hip pain and she only drinks occasionally now Left ventricular hypertrophy (Chronic) Mild on echocardiogram done in July 2014 Allergies Penicillins Allergy (Verified 01/23/20 21:41) Unknown Home Medications: Ambulatory Orders Medication Instructions Recorded Mirtazapine [Remeron] 30 mg PO QHS 06/01/16 Folic Acid 1 mg PO DAILY@0800 09/30/16 Aspirin [Aspir-Low] 81 mg PO DAILY 03/24/19 Ferrous Sulfate, Dried [Iron] 65 mg PO DAILY 03/24/19 Levetiracetam 750 mg PO BID 03/24/19 Levothyroxine Sodium 150 mcg PO DAILY 03/24/19 Magnesium Oxide [Magnesium] 500 mg PO DAILY 03/24/19 Multivitamin with Minerals 1 tab PO DAILY 03/24/19 [Multiple Vitamin] Potassium 99 mg PO DAILY 03/24/19 Rosuvastatin Calcium [Crestor] 20 mg PO QHS 03/24/19 Cephalexin [Keflex] 500 mg PO Q12 #10 capsule 03/25/19 Surgical History: - - tubal ligation in her 20's. Total hip arthroplasty. 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 Family is not present. Old records reviewed did not show family history. Maternal History Items: - - Unable to obtain since patient is obtunded and family is not present. Old records reviewed did not show family history. Review of Systems Unable to obtain accurate/complete ROS d/t: Unable to obtain since patient is obtunded. Family is not available. VTE Information - Inpt Only VTE Present on Admission: No VTE Mechan Device Prophylaxis: None VTE Pharm Prophylaxis ordered?: Yes Patient Problems: Active and Suspected Problems Seizure (Acute) Ta's paralysis (Acute) - Physical Exam Vitals/I&O's: Vital Signs Temp Pulse Resp BP Pulse Ox 99.8 F H 85 23 H 112/78 99 01/23/20 23:16 01/23/20 23:16 01/23/20 23:16 01/23/20 23:16 01/23/20 23:16 Oxygen Flow Rate (L/min) 2 Oxygen Delivery Method Nasal Cannula Weight: 50.7 kg Body Mass Index (BMI) 18.6 Finger Stick Blood Glucose 104 Intake and Output for Last 24 Hours 01/21/20 01/22/20 01/24/20 23:59 23:59 00:59 Intake Total 100 / 100 Balance 100 / 100 General: - - Obtunded HEENT: Atraumatic, Normocephalic, - - Pupils nonreactive to light bilaterally Neck: Trachea Midline Lungs: Clear to auscultation, Normal air movement, No rhonchi, No wheeze, No rales Cardiovascular: Regular rate, Normal S1, Normal S2 Abdomen: Bowel Sounds Present, Soft, Non-Distended Extremities: No edema, Peripheral Pulses Normal Skin: No rashes, No breakdown Musculoskeletal: Cachexia Neurological: - - Obtunded. Psych/Mental Status: - - Obtunded Microbiology Past 72 Hours 01/23/20 21:30 Mucosa - Nasopharyngeal Influenza Types A,B Direct FA (MICKIE) - Final Laboratory Results 01/23/20 21:20: WBC 18.3 H, RBC 4.11 L, Hgb 13.7, Hct 40.6, MCV 98.8, MCH 33.3 H , MCHC 33.7, RDW Std Deviation 44.1 H, RDW Coeff of Dariela 12.1, Plt Count 455 H, MPV 9.3, Immature Gran % (Auto) 0.400, Neut % (Auto) 85.4 H, Lymph % (Auto) 5.8 L, [place] % (Auto) 7.7, Eos % (Auto) 0.3, Baso % (Auto) 0.4, Absolute Neuts (auto) 15.7 H, Absolute Lymphs (auto) 1.07, Nucleated RBC % 0 01/23/20 21:20: PT 13.2, INR 1.0, APTT 40.9 H 01/23/20 21:20: Sodium 134 L, Potassium 3.9, Chloride 100, Carbon Dioxide 20.0 L , Anion Gap 14, BUN 11, Creatinine 0.82, Estim Creat Clear Calc 54.74, Est GFR (MDRD) Af Amer 90, Est GFR (MDRD) Non-Af 74, BUN/Creatinine Ratio 13.4, Glucose 104, Calcium 8.9, Total Bilirubin 0.30, AST 24, ALT 24, Alkaline Phosphatase 52, Troponin I < 0.015, Total Protein 7.4, Albumin 3.5, Globulin 3.9, Albumin/Globulin Ratio 0.9 01/23/20 21:20: Ethyl Alcohol < 3.0 01/23/20 21:20: Lactic Acid 5.4 H* 01/23/20 21:20: Ammonia 22.0 01/23/20 21:36: POC Glucose 104 01/23/20 21:43: Specimen Type ART, Sample Site L Radial, pH 7.42, Bicarbonate Actual 27.4 H, POC Total CO2 29, Base Excess 3 H, O2 Saturation 94 L, ABG pCO2 41.9, ABG pO2 68 L, Hector Test POS, O2 Delivery Device Nasal Can, Liter Flow 2.0, Blood Gas Notified Whom ED 01/23/20 22:45: Urine Opiates Screen NEGATIVE, Urine Methadone Screen NEGATIVE, Ur Barbiturates Screen NEGATIVE, Ur Phencyclidine Scrn NEGATIVE, Ur Amphetamines Screen NEGATIVE, U Methamphetamin-MDMA NEGATIVE, U Benzodiazepines Scrn NEGATIVE, Urine Cocaine Screen NEGATIVE, U Cannabinoids Screen POSITIVE H, Ur Drug Screen Comment 01/23/20 22:45: Urine Color Yellow, Urine Clarity Clear, Urine pH 7.0, Ur Specific [place] 1.020, Urine Protein Negative, Urine Glucose (UA) Normal, Urine Ketones Negative, Urine Occult Blood Negative, Urine Nitrite Negative, Urine Bilirubin Negative, Urine Urobilinogen Normal, Ur Leukocyte Esterase Negative, Urine RBC 0 SEEN, Urine WBC 0 SEEN, Ur Squamous Epith Cells 0 SEEN, Urine Bacteria 0 SEEN, Urine Mucus 0 SEEN Current Medications Sodium Chloride () 1,000 mls @ 999 mls/hr IV .Q1H1M ONE Stop: 01/24/20 00:20 Last Admin: 01/23/20 23:22 Dose: 999 mls/hr Documented by: Assessment/Plan All Active Problems Seizure (Acute) Ta's paralysis (Acute) The patient is a 64 year old F with a significant for polysubstance abuse; seizure disorder; tobacco abuse; alcohol abuse; and noncompliance who present to emergency department with seizure Breakthrough seizures. Patient received Keppra 1000 mg at the emergency department. Also she received Ativan 2 mg IV x2. Hold all p.o. medication including home Keppra of 750 mg twice daily. Unclear whether at home she takes at home Keppra. Keppra 1000 mg twice daily ordered. Ativan IV as needed for seizures. Gentle IV hydration with lactated Ringer's. EEG ordered. Lactic acidosis Likely secondary to breakthrough seizures. Treatment as above. Trend lactic acid Neutrophilic leukocytosis with thrombocytosis Likely reactive from seizures; trend CBC. Moderate protein calorie malnutrition. BMI is 18.6. Counseled when appropriate Hypothyroidism: Patient is n.p.o. for now. Hold levothyroxine. Tobacco abuse: Paper Conservator when appropriate. DVT prophylaxis: Subcutaneous Lovenox Inpatient E&M: [id number] In Hosp L3
[2020-01-24] VITALS (15 sets, daily range): BP systolic 108–139; BP diastolic 64–97; PULSE 66–86; RESP 12–24; TEMP 36.6–37.7; O2SAT 93–100; BMI 16.9
[2020-01-24] MEDS: 0.9% Saline Lock 10 ML Syringe IV (01:06)
[2020-01-24] MEDS: Lactated Ringers 1,000 ML 75 ML IV (01:06)
--- NOTE | 2020-01-24 01:10 | NURSING ---
Unable to complete entire admission at this time d/t pt decreased level of consciousness. Will attempt to complete when pt more alert.
[2020-01-24 01:53] LABS: Reflex Lactate? Y
[2020-01-24 03:33] LABS: Absolute Lymphocyte Count 1.78 X10^3/uL (0.83-4.51); Absolute Neutrophil Count 9.4 X10^3/uL (2.0-7.7); Basophil# 0.07 X10^3/uL; Basophil% 0.5 % (0-1); Eosinophil# 0.26 X10^3/uL; Hematocrit 35.4 % (37-47); Hemoglobin 12.1 g/dL (12.0-15.0); Lymphocyte # 1.78 X10^3/ul (4.0); Lymphocyte % 13.8 % (19-41); Mean Corp Hgb Conc 34.2 g/dL (32-36); Mean Corpuscular Hgb 33.8 pg (27.0-32.0); Mean Corpuscular Volume 98.9 fL (81-99); Mean Platelet Vol. 9.3 fl (6.2-12.0); Monocyte# 1.39 X10^3/uL; Monocyte% 10.8 % (0-10); NRBC Flagged by Analyzer 0 % (0-5); Neutrophil # 9.35 X10^3/uL (2.7-7.7); Neutrophil % 72.6 % (47-70); Platelet Count 381 K/mm3 (150-450); RBC Distribution Width CV 12.2 % (11.6-14.6); RBC Distribution Width SD 44.9 fl (35.1-43.9); Red Blood Count 3.58 M/mm3 (4.2-5.4); White Blood Count 12.9 K/mm3 (4.4-11.0)
[2020-01-24 03:42] LABS: Anion Gap 6 (5-15); BUN 8 mg/dL (7-18); BUN/Creat Ratio 15.5 RATIO (10-20); Calcium,Total 8.3 mg/dL (8.5-10.1); Chloride 109 mmol/L (98-107); Creatinine, Serum 0.52 mg/dL (0.55-1.02); EST Glomerular Filtration Rate 127 mL/min (>60); Est Glom Filt Rate - Afr Amer 153 mL/min (>60); Estimated Creatinine Clearance 78.33 ml/min; Glucose 84 mg/dL (74-106); Potassium 3.7 mmol/L (3.5-5.1); Sodium Level 137 mmol/L (136-145)
[2020-01-24 03:47] LABS: Lactic Acid 0.5 mmol/L (0.4-1.9)
[2020-01-24] MEDS: levETIRAcetam IV 1,000 MG/100 ML BAG 400 MG IV (10:20)
[2020-01-24] MEDS: Enoxaparin 40 MG/0.4 ML Syringe SC (10:25)
--- NOTE | 2020-01-24 13:31 | PCM.PN.HOSP ---
<Noel Carrillo - Last Filed: 01/24/20 13:31> Patient Problems: Active and Suspected Problems Seizure (Acute) Ta's paralysis (Acute) Reason for Visit: Seizure Subjective: The patient was on able to provide significant history for me today. I attempted to call her , left a voicemail, have not heard back. The patient does not think that she was on any seizure medicines and claims she has not had a seizure since childhood. She cannot remember anything that happened this past weekend, including any of Friday. She states she feels back to normal. She denies fevers or chills, dysuria, hip pain. She is up ambulating with no issues. She was eating breakfast this morning with no nausea or vomiting. She denies headache. She denies tremor. She also denied drug use, however she tested positive for marijuana, she has a history of marijuana abuse. Vitals/I&O's: Vital Signs Temp Pulse Resp BP Pulse Ox 98 F 73 12 108/64 93 01/24/20 11:45 01/24/20 11:45 01/24/20 11:45 01/24/20 11:45 01/24/20 11:45 Oxygen Flow Rate (L/min) 2 Oxygen Delivery Method Room Air Weight: 101 lb 6.602 oz Body Mass Index (BMI) 16.9 Finger Stick Blood Glucose 104 Intake and Output for Last 24 Hours 01/22/20 01/23/20 01/24/20 22:59 23:59 23:59 Intake Total 1350 / 1350 Balance 1350 / 1350 General: Alert, Oriented x3, Cooperative, - - frail HEENT: Atraumatic, PERRLA, EOMI, Normocephalic Neck: Supple, No JVD, Negative Carotid Bruits Lungs: Clear to auscultation, Normal air movement Cardiovascular: Regular rate, No murmurs Abdomen: Bowel Sounds Present, Soft, Non Tender Extremities: No edema, Capillary Refill Less than 3 Seconds Skin: No rashes, No breakdown Musculoskeletal: No Tenderness to Palpation of Joints or Extremities Neurological: Cranial nerves II-XII grossly intact Psych/Mental Status: Normal Affect, Appropriate, Alert and oriented to time, place, person, mood and affect Microbiology Past 72 Hours 01/23/20 21:30 Mucosa - Nasopharyngeal Influenza Types A,B Direct FA (MICKIE) - Final Laboratory Results 01/23/20 21:20: WBC 18.3 H, RBC 4.11 L, Hgb 13.7, Hct 40.6, MCV 98.8, MCH 33.3 H, MCHC 33.7, RDW Std Deviation 44.1 H, RDW Coeff of Dariela 12.1, Plt Count 455 H, MPV 9.3, Immature Gran % (Auto) 0.400, Neut % (Auto) 85.4 H, Lymph % (Auto) 5.8 L, Crisp % (Auto) 7.7, Eos % (Auto) 0.3, Baso % (Auto) 0.4, Absolute Neuts (auto) 15.7 H, Absolute Lymphs (auto) 1.07, Nucleated RBC % 0 01/23/20 21:20: PT 13.2, INR 1.0, APTT 40.9 H 01/23/20 21:20: Sodium 134 L, Potassium 3.9, Chloride 100, Carbon Dioxide 20.0 L, Anion Gap 14, BUN 11, Creatinine 0.82, Estim Creat Clear Calc 54.74, Est GFR (MDRD) Af Amer 90, Est GFR (MDRD) Non-Af 74, BUN/Creatinine Ratio 13.4, Glucose 104, Calcium 8.9, Total Bilirubin 0.30, AST 24, ALT 24, Alkaline Phosphatase 52, Troponin I < 0.015, Total Protein 7.4, Albumin 3.5, Globulin 3.9, Albumin/Globulin Ratio 0.9 01/23/20 21:20: Ethyl Alcohol < 3.0 01/23/20 21:20: Lactic Acid 5.4 H* 01/23/20 21:20: Ammonia 22.0 01/23/20 21:36: POC Glucose 104 01/23/20 21:43: Specimen Type ART, Sample Site L Radial, pH 7.42, Bicarbonate Actual 27.4 H, POC Total CO2 29, Base Excess 3 H, O2 Saturation 94 L, ABG pCO2 41.9, ABG pO2 68 L, Hector Test POS, O2 Delivery Device Nasal Can, Liter Flow 2.0, Blood Gas Notified Whom ED 01/23/20 22:45: Urine Opiates Screen NEGATIVE, Urine Methadone Screen NEGATIVE, Ur Barbiturates Screen NEGATIVE, Ur Phencyclidine Scrn NEGATIVE, Ur Amphetamines Screen NEGATIVE, U Methamphetamin-MDMA NEGATIVE, U Benzodiazepines Scrn NEGATIVE, Urine Cocaine Screen NEGATIVE, U Cannabinoids Screen POSITIVE H, Ur Drug Screen Comment 01/23/20 22:45: Urine Color Yellow, Urine Clarity Clear, Urine pH 7.0, Ur Specific Dale 1.020, Urine Protein Negative, Urine Glucose (UA) Normal, Urine Ketones Negative, Urine Occult Blood Negative, Urine Nitrite Negative, Urine Bilirubin Negative, Urine Urobilinogen Normal, Ur Leukocyte Esterase Negative, Urine RBC 0 SEEN, Urine WBC 0 SEEN, Ur Squamous Epith Cells 0 SEEN, Urine Bacteria 0 SEEN, Urine Mucus 0 SEEN 01/24/20 03:14: WBC 12.9 H, RBC 3.58 L, Hgb 12.1, Hct 35.4 L, MCV 98.9, MCH 33.8 H, MCHC 34.2, RDW Std Deviation 44.9 H, RDW Coeff of Dariela 12.2, Plt Count 381, MPV 9.3, Immature Gran % (Auto) 0.300, Neut % (Auto) 72.6 H, Lymph % (Auto) 13.8 L, Crisp % (Auto) 10.8 H, Eos % (Auto) 2.0, Baso % (Auto) 0.5, Absolute Neuts (auto) 9.4 H, Absolute Lymphs (auto) 1.78, Nucleated RBC % 0 01/24/20 03:14: Sodium 137, Potassium 3.7, Chloride 109 H, Carbon Dioxide 22.0, Anion Gap 6, BUN 8, Creatinine 0.52 L, Estim Creat Clear Calc 78.33, Est GFR (MDRD) Af Amer 153, Est GFR (MDRD) Non-Af 127, BUN/Creatinine Ratio 15.5, Glucose 84, Calcium 8.3 L 01/24/20 03:14: Lactic Acid 0.5 Current Medications Enoxaparin Sodium (Lovenox) 40 mg SC DAILY [facility] Last Admin: 01/24/20 10:25 Dose: 40 mg Documented by: Glucagon () 1 mg IM .X1 PRN PRN Reason: Hypoglycemia Lactated Ringer's () 1,000 mls @ 75 mls/hr IV .[id number] [facility] Stop: 01/24/20 13:52 Last Admin: 01/24/20 01:06 Dose: 75 mls/hr Documented by: Levetiracetam () 1,000 mg in 100 mls @ 400 mls/hr IV Q12 JACKELINE Last Infusion: 01/24/20 10:40 Dose: Infused Documented by: Sodium Chloride () 250 mls @ 15 mls/hr IV .[id number] PRN PRN Reason: Saline Flush Sodium Chloride () 250 mls @ 15 mls/hr IV .[id number] PRN PRN Reason: Additional IVPB Infusion Dextrose (Dextrose 10%-Water) 250 mls @ 999 mls/hr IV .Q16M PRN; Protocol PRN Reason: HYPOGLYCEMIA Lorazepam (Ativan) 1 mg IV Q5M PRN PRN Reason: SEIZURES Nutritional Formula (Lactose Free) (Ensure Enlive) 120 ml PO 4X/DAY JACKELINE Sodium Chloride () 10 - 40 ml IV UD PRN PRN Reason: SALINE FLUSH Last Admin: 01/24/20 01:06 Dose: 10 ml Documented by: STROKE Vital Signs/Narrative: Vital Signs Temp Pulse Resp BP Pulse Ox 01/24/20 11:45 98 F 73 12 108/64 93 Medical Necessity - Tobacco Use Smoking Status: Current every day smoker Tobacco Use: Cigarettes Assessment/Plan All Active Problems Seizure (Acute) Ta's paralysis (Acute) 1. Suspected breakthrough seizure-witnessed generalized tonic-clonic seizure. Patient is supposed to be on Keppra at home. She is not aware that she is on seizure medicine at home. We will transition her to oral Keppra today. Will monitor overnight. I am still attempting to contact her to clarify what treatment and follow-up she has had in the past. -Leukocytosis improving. -Lactic acidosis resolved. -Troponin negative. -Tox screen shows marijuana. -The patient states she drinks rarely, ethyl alcohol level was less than 3. -CTA head and neck was negative. -CT brain shows moderate atrophy, periventricular white matter ischemic changes, no evidence for acute bleed. -chest x-ray negative. 2.Nicotine abuse - patch if desired 3. Hx Ta's paralysis 4. 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 Hypothyroisim - synthroid, check tsh DVT ppx: lovenox DC planning: needs o/p neuro follow up. monitor on PO keppra overnight This patient was seen by Noel Carrillo PA-C under the supervision of Doctor Salome. <KapilbogdanKatelynn - Last Filed: 01/24/20 16:20> Vitals/I&O's: Vital Signs Temp Pulse Resp BP Pulse Ox 98 F 66 12 108/64 93 01/24/20 11:45 01/24/20 12:13 01/24/20 11:45 01/24/20 11:45 01/24/20 11:45 Oxygen Flow Rate (L/min) 2 Oxygen Delivery Method Room Air Weight: 101 lb 6.602 oz Body Mass Index (BMI) 16.9 Finger Stick Blood Glucose 104 Intake and Output for Last 24 Hours 01/22/20 01/23/20 01/24/20 22:59 23:59 23:59 Intake Total 2300 / 2300 Balance 2300 / 2300 Microbiology Past 72 Hours 01/23/20 21:30 Mucosa - Nasopharyngeal Influenza Types A,B Direct FA (MICKIE) - Final Laboratory Results 01/23/20 21:20: WBC 18.3 H, RBC 4.11 L, Hgb 13.7, Hct 40.6, MCV 98.8, MCH 33.3 H, MCHC 33.7, RDW Std Deviation 44.1 H, RDW Coeff of Dariela 12.1, Plt Count 455 H, MPV 9.3, Immature Gran % (Auto) 0.400, Neut % (Auto) 85.4 H, Lymph % (Auto) 5.8 L, Crisp % (Auto) 7.7, Eos % (Auto) 0.3, Baso % (Auto) 0.4, Absolute Neuts (auto) 15.7 H, Absolute Lymphs (auto) 1.07, Nucleated RBC % 0 01/23/20 21:20: PT 13.2, INR 1.0, APTT 40.9 H 01/23/20 21:20: Sodium 134 L, Potassium 3.9, Chloride 100, Carbon Dioxide 20.0 L, Anion Gap 14, BUN 11, Creatinine 0.82, Estim Creat Clear Calc 54.74, Est GFR (MDRD) Af Amer 90, Est GFR (MDRD) Non-Af 74, BUN/Creatinine Ratio 13.4, Glucose 104, Calcium 8.9, Total Bilirubin 0.30, AST 24, ALT 24, Alkaline Phosphatase 52, Troponin I < 0.015, Total Protein 7.4, Albumin 3.5, Globulin 3.9, Albumin/Globulin Ratio 0.9 01/23/20 21:20: Ethyl Alcohol < 3.0 01/23/20 21:20: Lactic Acid 5.4 H* 01/23/20 21:20: Ammonia 22.0 01/23/20 21:36: POC Glucose 104 01/23/20 21:43: Specimen Type ART, Sample Site L Radial, pH 7.42, Bicarbonate Actual 27.4 H, POC Total CO2 29, Base Excess 3 H, O2 Saturation 94 L, ABG pCO2 41.9, ABG pO2 68 L, Hector Test POS, O2 Delivery Device Nasal Can, Liter Flow 2.0, Blood Gas Notified Whom ED MD 01/23/20 22:45: Urine Opiates Screen NEGATIVE, Urine Methadone Screen NEGATIVE, Ur Barbiturates Screen NEGATIVE, Ur Phencyclidine Scrn NEGATIVE, Ur Amphetamines Screen NEGATIVE, U Methamphetamin-MDMA NEGATIVE, U Benzodiazepines Scrn NEGATIVE, Urine Cocaine Screen NEGATIVE, U Cannabinoids Screen POSITIVE H, Ur Drug Screen Comment 01/23/20 22:45: Urine Color Yellow, Urine Clarity Clear, Urine pH 7.0, Ur Specific Dale 1.020, Urine Protein Negative, Urine Glucose (UA) Normal, Urine Ketones Negative, Urine Occult Blood Negative, Urine Nitrite Negative, Urine Bilirubin Negative, Urine Urobilinogen Normal, Ur Leukocyte Esterase Negative, Urine RBC 0 SEEN, Urine WBC 0 SEEN, Ur Squamous Epith Cells 0 SEEN, Urine Bacteria 0 SEEN, Urine Mucus 0 SEEN 01/24/20 03:14: WBC 12.9 H, RBC 3.58 L, Hgb 12.1, Hct 35.4 L, MCV 98.9, MCH 33.8 H, MCHC 34.2, RDW Std Deviation 44.9 H, RDW Coeff of Dariela 12.2, Plt Count 381, MPV 9.3, Immature Gran % (Auto) 0.300, Neut % (Auto) 72.6 H, Lymph % (Auto) 13.8 L, Crisp % (Auto) 10.8 H, Eos % (Auto) 2.0, Baso % (Auto) 0.5, Absolute Neuts (auto) 9.4 H, Absolute Lymphs (auto) 1.78, Nucleated RBC % 0 01/24/20 03:14: Sodium 137, Potassium 3.7, Chloride 109 H, Carbon Dioxide 22.0, Anion Gap 6, BUN 8, Creatinine 0.52 L, Estim Creat Clear Calc 78.33, Est GFR (MDRD) Af Amer 153, Est GFR (MDRD) Non-Af 127, BUN/Creatinine Ratio 15.5, Glucose 84, Calcium 8.3 L 01/24/20 03:14: Lactic Acid 0.5 01/24/20 03:14: TSH 0.23 L Current Medications Enoxaparin Sodium (Lovenox) 40 mg SC DAILY [facility] Last Admin: 01/24/20 10:25 Dose: 40 mg Documented by: Glucagon () 1 mg IM .X1 PRN PRN Reason: Hypoglycemia Sodium Chloride () 250 mls @ 15 mls/hr IV .[id number] PRN PRN Reason: Saline Flush Sodium Chloride () 250 mls @ 15 mls/hr IV .[id number] PRN PRN Reason: Additional IVPB Infusion Dextrose (Dextrose 10%-Water) 250 mls @ 999 mls/hr IV .Q16M PRN; Protocol PRN Reason: HYPOGLYCEMIA Levetiracetam (Keppra Tablet) 1,000 mg PO BID JACKELINE Levothyroxine Sodium (Synthroid) 100 mcg PO DAILY@0600 JACKELINE Lorazepam (Ativan) 1 mg IV Q5M PRN PRN Reason: SEIZURES Nutritional Formula (Lactose Free) (Ensure Enlive) 120 ml PO 4X/DAY [facility] Last Admin: 01/24/20 13:45 Dose: 120 ml Documented by: Sodium Chloride () 10 - 40 ml IV UD PRN PRN Reason: SALINE FLUSH Last Admin: 01/24/20 01:06 Dose: 10 ml Documented by: Assessment/Plan Patient seen by Noel Carrillo PA-C under my supervision Seen and examined. She was admitted with a complaint of seizures. Patient does have a history of seizure disorder but does not seem to have been compliant with her medication. She told me she has had numerous recurrent seizures but the next moment to me that she does not know that she has a history of seizure disorder. Patient had no complaints this morning. To most questions asked today she answers I do not know, I do not know. She however looks stable. Labs and vitals reviewed. o/e: Vital Signs Height 5 ft 4.96 in Weight: 101 lb 6.602 oz Weight in Pounds 101.4 lbs Pulse Ox 93 Temperature 98 F Pulse Rate 66 Respiratory Rate 12 Blood Pressure [BP] 139/97 Blood Pressure 108/64 Blood Pressure Position [BP] Semi-Fowlers Blood Pressure Position Semi-Fowlers General: Alert, Oriented x3, Cooperative, - - frail HEENT: Atraumatic, PERRLA, EOMI, Normocephalic Neck: Supple, No JVD, Negative Carotid Bruits Lungs: Clear to auscultation, Normal air movement Cardiovascular: Regular rate, No murmurs Abdomen: Bowel Sounds Present, Soft, Non Tender Extremities: No edema, Capillary Refill Less than 3 Seconds Skin: No rashes, No breakdown Musculoskeletal: No Tenderness to Palpation of Joints or Extremities Neurological: Cranial nerves II-XII grossly intact Psych/Mental Status: Normal Affect, Appropriate, Alert and oriented to time, place, person, mood and affect Patient had an EEG today which showed very low voltage and there were no focal, lateralized or epileptiform abnormalities seen; findings were consistent with sleep and likely sedation as there is superimposed beta activity seen on benzodiazepines. Patient was started on Keppra and has been transitioned to p.o. Keppra today. She does admit to history of marijuana use though she states she has not used it in a while; urine tox was however positive for cannabinoids. Will monitor patient overnight to ensure she remained stable, for discharge home tomorrow. Rest as per Noel Carrillo PA-C's note, which I have reviewed and endorsed. Inpatient E&M: [id number] Subs Hosp L2
[2020-01-24 14:11] LABS: Thyroid Stim Hormone (TSH) 0.23 uIU/mL (0.358-3.74)
--- NOTE | 2020-01-24 14:42 | CASEMGMT ---
RN CM Assessment Introduced role of RN CM to patient.? Patient is alert, oriented but appears forgetful, Poor historian per MD report, able?to participate in RN CM Assessment. ?Care providers, pharmacy, and demographics verified. Presentation: Seizure. H/o Polysubstance Abuse, Seizure disorder, tobacco abuse, previous alcohol abuse, noncompliance. Admit Dx: Seizure Disorder Re-Admit: No Barriers/Issues: None. Patient states that she is a Tobacco smoker, unknown years or age when she started, states she did stop for awhile. Does drink hard liquor occasionally. States has a good family/friend support system that can help her if needed. Dtr Ambika lives in [place]. PCP: Oscar Reese Specialists: None Preferred Pharmacy: [facility] Insurance: [facility] Benefit:?Not sure ?LNOK: Steven Yu LW/HPOA: None, declines offered information or completion on this admission. Living Arrangements:? Lives with her in a [facility], no steps to enter home ADL?s: Independent with ambulation and ADLs Transportation: Both patient and drive DME: None HHC: None SNF: None Goal: Home and does not think will have any needs. Denies any issues, concerns, needs, or questions with DC planning at this time. Aware CM remains available for any emerging needs. DC PLAN: Home with no anticipated needs identified at this time. RIGOBERTO Hanks
[2020-01-24] MEDS: levETIRAcetam 1,000 MG Tablet 1000 MG PO (21:20)
[2020-01-25 01:00] VITALS: PULSE 63
[2020-01-25 04:14] VITALS: BP 137/79; PULSE 78; RESP 18; TEMP 36.3; O2SAT 98
[2020-01-25] MEDS: Levothyroxine 100 MCG Tablet PO (06:07)
[2020-01-25 07:28] VITALS: PULSE 65
[2020-01-25 07:48] VITALS: O2SAT 94
[2020-01-25 08:49] VITALS: BP 137/94; PULSE 67; RESP 18; TEMP 36.6; O2SAT 95
[2020-01-25] MEDS: levETIRAcetam 1,000 MG Tablet 1000 MG PO (08:50)
[2020-01-25] MEDS: Enoxaparin 40 MG/0.4 ML Syringe SC (08:51)
[2020-01-25 09:41] LABS: T4 Free Direct 1.08 ng/dL (0.76-1.46)
--- NOTE | 2020-01-25 09:44 | PCM.DC ---
- Discharge Diagnoses Current Active Problems: Current Active and Chronic Problems Seizure (Acute) Ta's paralysis (Acute) You will use the following diet at home:: No restrictions, Other - no alcohol at all Your food should be the consistency of: Regular Your liquids should be the consistency of: Regular/Thin Discharge Activity: Return to Normal Activity Allergies/Adverse Reactions: Allergies Penicillins Allergy (Verified 01/23/20 21:41) Unknown Medications to take at Discharge Levothyroxine Sodium 100 mcg PO DAILY 03/24/19 levETIRAcetam tablet [Keppra tablet] 1,000 mg PO BID #60 tab 01/25/20 The following prescriptions were given: levETIRAcetam tablet [Keppra tablet] 1,000 mg PO BID #60 tab Transmission Status: Pending to [facility] Primary Care Physician: Oscar Reese MD [Primary Care Provider] - Please follow up with your Primary Care Physician in: 1 week Test Results: Test results from this visit will be discussed in further detail at your follow-up appointment, if applicable. Please Follow Up With: Vishnu Michele MD When: 2 weeks Proposed Discharge Date: 01/25/20
--- NOTE | 2020-01-25 10:14 | PHA.DC.MR ---
Pharmacy Service has performed discharge medication reconciliation for this patient. The patient's discharge medication list was reviewed for discrepancies and discrepancies were resolved. Home Medications Levothyroxine Sodium 100 mcg PO DAILY 03/24/19 levETIRAcetam tablet [Keppra tablet] 1,000 mg PO BID #60 tab 01/25/20
--- NOTE | 2020-01-25 13:52 | DS.PCM_ITS ---
<Noel Carrillo - Last Filed: 01/25/20 13:52> Discharge Date and Diagnosis Date of Admission: 01/23/20 Date of Discharge: 01/25/20 - Primary Discharge Diagnosis Seizure Dementia Nicotine abuse, marijuana abuse - Secondary Discharge Diagnosis Chronic Problems Nicotine addiction (Chronic) Hypothyroidism (Chronic) GERD (gastroesophageal reflux disease) (Chronic) Macrocytosis without anemia (Chronic) Seizure disorder (Chronic) History of alcohol abuse (Chronic) dtr states she drank to relieve hip pain and she only drinks occasionally now Left ventricular hypertrophy (Chronic) Mild on echocardiogram done in July 2014 Hospital Course and Treatment Imaging Results: Diagnostics: CT/Brain/Head without Contrast IMPRESSION: Moderate atrophy and periventricular white matter ischemic changes. No evidence for acute bleed. If concern for acute infarct MRI recommended RAD/Chest 1 View (Portable) IMPRESSION: Chronic interestitial changes. No radiographic evidence of acute cardiopulmonary disease. CT/CTA Head AND Neck W/ Contrast IMPRESSION: Negative CTA Head and Neck. Individualized dose optimization techniques were used for this CT. EEG: EEG showed moderate generalized background slowing consistent with sleep and likely sedation as there is superimposed beta activity that can be seen with benzodiazepines. No focal, lateralized, nor epileptiform abnormalities seen. Operations: None Procedures: Electroencephalogram Summary of Care Provided: Hospital course: The patient is a 64 year old F with past medical history of seizure disorder, dementia, nicotine abuse, former alcoholic, ongoing marijuana abuse, hypothyroidism, who presented to the emergency room with seizure. She was brought by paramedics and was reportedly having tonic-clonic seizure at home. Her also revealed that earlier last week she had had 6 seizures. No follow-up or treatment was sought after those. In the ED she had partial seizure and paralysis of the left arm and nystagmus, twitching. She has had multiple admissions due to seizures in the past. Per her she had been compliant with her Keppra 750 twice daily. She was admitted to the hospital and loaded with IV Keppra. She was kept overnight and seemed to be back to her normal self the following day. Her was concerned she might have an infection because her behavior changes when she has infections. He was specifically concerned about her hip or a urinary tract infection. Her hip appeared unremarkable, she had no pain, no swelling, no redness, no problem with range of motion or weightbearing. She ambulated without any difficulty. She had no urinary tract infection symptoms, and her urinalysis was completely normal. She did have leukocytosis and lactic acidosis felt to be secondary to seizure. EEG was obtained and did not show any epileptiform activity. The patient was kept overnight for monitoring on oral Keppra. She had no further issues overnight. The following morning she was extremely agitated and demandin g to leave the hospital. We contacted her who indicated that this is normal behavior for her when she is in the hospital. She was discharged home in stable condition. I discussed follow-up care with her and he noted that she had not seen her neurologist in several years and it was difficult to get an appointment-I recommended follow-up with a neurologist either her old neurologi st or a new one in the next 2 weeks. She will also need follow-up with her PCP in 1 to 2 weeks. She may follow up with her orthopedic surgery as needed. She was discharged home in stable condition. This patient was seen by Noel Carrillo PA-C under the supervision of Doctor Salome [] - Physical Exam Vitals/I&O's: Vital Signs Temp Pulse Resp BP Pulse Ox 97.8 F 67 18 137/94 H 95 01/25/20 08:49 01/25/20 08:49 01/25/20 08:49 01/25/20 08:49 01/25/20 08:49 Oxygen Flow Rate (L/min) 2 Oxygen Delivery Method Room Air Weight: 101 lb 6.602 oz Body Mass Index (BMI) 16.9 Finger Stick Blood Glucose 104 Intake and Output for Last 24 Hours 01/23/20 01/24/20 01/25/20 23:59 23:59 23:59 Intake Total 2920 / 3520 1200 / 1200 Balance 2920 / 3520 1200 / 1200 General: Alert, Oriented x3, Cooperative, - - frail HEENT: Atraumatic, PERRLA, EOMI, Normocephalic Neck: Supple, No JVD, Negative Carotid Bruits Lungs: Clear to auscultation, Normal air movement Cardiovascular: Regular rate, No murmurs Abdomen: Bowel Sounds Present, Soft, Non Tender Extremities: No edema, Capillary Refill Less than 3 Seconds Skin: No rashes, No breakdown Musculoskeletal: No Tenderness to Palpation of Joints or Extremities Neurological: Cranial nerves II-XII grossly intact Psych/Mental Status: Agitated, Alert and oriented to time, place, person, mood and affect Microbiology Past 72 Hours 01/23/20 21:30 Mucosa - Nasopharyngeal Influenza Types A,B Direct FA ([facility]) - Final Laboratory Results 01/24/20 03:14: TSH 0.23 L 01/24/20 03:14: Free T4 1.08 Discharge Diet: - - no alcohol at all Discharge Activity: Return to Normal Activity Home Medications: Medications to take at Discharge Levothyroxine Sodium 100 mcg PO DAILY 03/24/19 levETIRAcetam tablet [Keppra tablet] 1,000 mg PO BID #60 tab 01/25/20 Following Prescrptions Were Given to Patient: levETIRAcetam tablet [Keppra tablet] 1,000 mg PO BID #60 tab Transmission Status: Sent to [facility] Primary Care Physician: Oscar Reese MD [Primary Care Provider] - Please follow up with your Primary Care Physician in: 1 week Please Follow Up With: Vishnu Michele MD When: 2 weeks Please Follow Up With: Oscar Reese MD Please Follow Up With: Kevon Mckeon DO Disposition: Home Minutes spent on discharge:: 35 Patient Condition:: Stable Medical Necessity - Tobacco Use Smoking Status: Current every day smoker Tobacco Use: Cigarettes Meaningful Use Info Meaningful Use Diagnoses (Choose all that apply): None applicable <Katelynn Mcmahon - Last Filed: 01/25/20 14:45> Discharge Date and Diagnosis - Secondary Discharge Diagnosis Chronic Problems Nicotine addiction (Chronic) Hypothyroidism (Chronic) GERD (gastroesophageal reflux disease) (Chronic) Macrocytosis without anemia (Chronic) Seizure disorder (Chronic) History of alcohol abuse (Chronic) dtr states she drank to relieve hip pain and she only drinks occasionally now Left ventricular hypertrophy (Chronic) Mild on echocardiogram done in July 2014 Hospital Course and Treatment Summary of Care Provided: Patient seen by Noel Carrillo PA-C under my supervision The patient is a 64 year old F with a past medical history as outlined which includes seizure disorder who was admitted through the ED on 01/23/2020 with a complaint of seizure. She was brought in by the paramedics and had apparently been having tonic-clonic seizures at home and has been eventually revealed that she had had about 6 seizures during the week prior to admission but they are not followed up with any neurologist. claimed that she had been compliant with her Keppra though she had had previous admissions for seizures due to noncompliance in the past. She was admitted and managed for breakthrough seizures due to noncompliance with seizure medication and was started on IV Keppra. Patient seizures resolved and she remained stable. She was transitioned to p.o. Keppra. Urinalysis done was negative and an EEG done today is with no focal lateralized or epileptiform abnormalities seen and findings were consistent with sleep and likely sedation possibly due to benzodiazepines. Urine was positive for cannabinoids though patient says she had not used marijuana in a long while. did speak to medical team and he was concerned about possible infection such as a hip or urinary infection due to change in behavior. However there was no evidence of any urinary infection and patient did not have any pain, swelling or redness in her hip and did not have any limited range of movement or problems with weightbearing. Patient remained stable and was discharged home with p.o. Keppra 1000mg twice daily on 01/25/2020. She is to follow-up with her primary care doctor and also to follow-up with neurology. Patient seen and examined prior to discharge. Patient was agitated and wanted to be discharged home. She kept coming out into the hallway and screaming she insisted on being discharged. Review systems otherwise negative. Labs and vitals reviewed. Home medication reviewed and reconciled. o/e: Vital Signs Height 5 ft 4.96 in Weight: 101 lb 6.602 oz Weight in Pounds 101.4 lbs Pulse Ox 95 Temperature 97.8 F Pulse Rate 67 Respiratory Rate 18 Blood Pressure [BP] 128/89 Blood Pressure 137/94 Blood Pressure Position [BP] Semi-Fowlers Blood Pressure Position Semi-Fowlers [] General: Alert, Oriented x3, agitated HEENT: Atraumatic, PERRLA, EOMI, Normocephalic Neck: Supple, No JVD, Negative Carotid Bruits Lungs: Clear to auscultation, Normal air movement Cardiovascular: Regular rate, No murmurs Abdomen: Bowel Sounds Present, Soft, Non Tender Extremities: No edema, Capillary Refill Less than 3 Seconds Skin: No rashes, No breakdown Musculoskeletal: No Tenderness to Palpation of Joints or Extremities Neurological: Cranial nerves II-XII grossly intact Psych/Mental Status: Normal Affect, Appropriate, Alert and oriented to time, place, person, mood and affect Plan is for discharge home as above. - Physical Exam Vitals/I&O's: Vital Signs Temp Pulse Resp BP Pulse Ox 97.8 F 67 18 137/94 H 95 01/25/20 08:49 01/25/20 08:49 01/25/20 08:49 01/25/20 08:49 01/25/20 08:49 Oxygen Flow Rate (L/min) 2 Oxygen Delivery Method Room Air Weight: 101 lb 6.602 oz Body Mass Index (BMI) 16.9 Finger Stick Blood Glucose 104 Intake and Output for Last 24 Hours 01/23/20 01/24/20 01/25/20 23:59 23:59 23:59 Intake Total 2920 / 3520 1200 / 1200 Balance 2920 / 3520 1200 / 1200 Microbiology Past 72 Hours 01/23/20 21:30 Mucosa - Nasopharyngeal Influenza Types A,B Direct FA ([facility]) - Final Laboratory Results 01/24/20 03:14: Free T4 1.08 Discharge Diet: Low fat/ Low Cholesterol Weight Bearing Status: Weight bearing as tolerated Call your doctor if you observe: Fever of 101 or Higher, Shortness of breath, Dizziness, - - seizures Inpatient E&M: [id number] Disch Hosp
--- NOTE | 2020-01-26 14:34 | CASEMGMT ---
Addendum entered by Honorio Dietz 01/26/20 15:04: [facility]U medical records secretary states she will cancel the appts made with Dr Michele and Dr Oscar Reese. Call placed back to pt's home number and message left on answering machine per 's request. Message included need for to call the following doctor's for follow-up appts: Dr Oscar Reese, Dr Vishnu Michele, and Dr Kevon Dodd. Phone numbers for all 3 MD's provided, as well as their location, and time frame appts should be made within as per discharge instructions stated. Phone number to this CHANDLER RAZA provided for to return call if he has any further questions/concerns. Message also stated that the appts that were previously made for pt prior to her discharge have been cancelled per husbands request. Original Note: CHANDLER CM Discharge Follow-Up Phone Call. Lace: 10 Strata: 3 Discharge Date: 01/24/2010 Adm Dx: Seizure Disorder Call to pt to inquire about how she has been doing since being discharged from the hospital. Pt's answered and the following information was provided by him. states She's fine. states they are currently en route to [facility] to pharmacy picking tech the new prescription for Keppra. states he was not able to get it yesterday when she was discharged d/t I didn't have my wallet with me and I also wanted to bring in all the insurance information. states he gave pt her prior strength of Keppra 750 mg last evening and this AM, since he had not picked up the new prescription of 1,000 mg yet. RN CM instructed to make sure pt gets new Keppra strength of 1,000 mg this PM and for her to take as prescribed. denies having any questions re: discharge instructions. Asked pt if he was aware of the discharge follow-up appts made. stated he was not aware, stating, No one told me about it. RN CM made aware the appt list may be in the discharge paperwork. He stated he does not recall seeing it. asked when the appts were made for and CHANDLER RAZA told him they were made for 01/26 and 01/27. states, I have to work both of those days and I won't be able to take her. They did not tell me or ask me about the appts. I did not call and make the appts and I'm not going to call and cancel them. I will call on Friday to schedule the appts, but someone needs to call and cancel them because I am not going to do it. CHANDLER RAZA informed this would be followed up on/taken care of. asked for CHANDLER RAZA to call back to his home number and leave a message with what doctor's he needs to make appts with and who the doctors are. confirmed the number listed in demographics is the correct home number to call. Robinson VICTOR RN CM
== END 2020-01-25 12:19 | disposition home or self-care (01) | DRG 101 ==
LOC: ED 23:44 → PCU 01-24 00:34
PROVIDERS: Physician Assistant; Admitting Provider Hospitalist; Emergency Provider Emergency Medicine; PCP Family Medicine; Visit Provider Student in an Organized Health Care Education/Training Program
DX: G40.409 Other generalized epilepsy and epileptic syndromes, not intractable, without status epilepticus (principal); E44.0 Moderate protein-calorie malnutrition; Z68.1 Body mass index [BMI] 19.9 or less, adult; G83.84 Todd's paralysis (postepileptic); F03.90 Unspecified dementia, unspecified severity, without behavioral disturbance, psychotic disturbance, mood disturbance, and anxiety; E03.9 Hypothyroidism, unspecified; K21.9 Gastro-esophageal reflux disease without esophagitis; D75.89 Other specified diseases of blood and blood-forming organs; I51.7 Cardiomegaly; F12.10 Cannabis abuse, uncomplicated; F17.210 Nicotine dependence, cigarettes, uncomplicated; Z86.59 Personal history of other mental and behavioral disorders; Z79.82 Long term (current) use of aspirin; Z79.890 Hormone replacement therapy; Z91.14 Patient's other noncompliance with medication regimen; Z79.899 Other long term (current) drug therapy; R00.0 Tachycardia, unspecified; R94.31 Abnormal electrocardiogram [ECG] [EKG]; E87.2 Acidosis
CPT/HCPCS: 36415; 36600; 70450; 70496; 70498; 71045; 80048; 80053; 80307; 80320; 81001; 82140; 82803; 82962; 83605; 84439; 84443; 84484; 85025; 85610; 85730; 87040; 87804; 93005; 94762; 95819; 99218; 99285; 99406; J7030; J7120; P9612; Q9967; A4216; G0378; G0480

== ENCOUNTER → 2020-08-28 15:15 | Outpatient (CLI) | payer OTHER, MEDICARE, SELFPAY ==
[2020-01-24 00:38] VITALS: BMI 16.9
--- NOTE | 2020-08-28 16:10 | CT_ITS ---
STUDY: CT LEFT FEMUR WITHOUT CONTRAST REASON FOR EXAM: Female, 64 years old. LEFT LEG PAIN. RADIATION DOSAGE (If Supplied By Facility): CTDIvol = ( 12.06 ) mGy, DLP = ( 445.75 ) mGycm TECHNIQUE: Transaxial CT imaging of the femur was performed. Sagittal and coronal images were reconstructed. Individualized dose optimization techniques were used for this CT. COMPARISON: None. FINDINGS: There is avulsion fracture of the greater trochanter of the femur. Mild medial subcutaneous edema along the thigh. There is a soft tissue density density noted of the gluteus medias suggest hematoma. CT/Extremity Lower without Contra IMPRESSION: Avulsion fracture of the greater trochanter with adjacent lateral hematoma. Electronically Signed: Gautam Berrios DO at 17:52 EDT Tel [phone], Service support ,
== END ==
PROVIDERS: PCP Family Medicine; Referring Provider Physician Assistant Surgical; Visit Provider Physician Assistant Surgical
DX: S72.112A Displaced fracture of greater trochanter of left femur, initial encounter for closed fracture (principal)
CPT/HCPCS: 73700

== ENCOUNTER 2021-01-20 08:22 | Emergency (ER) | payer OTHER, MEDICARE, SELFPAY ==
[2020-01-24 00:38] VITALS: BMI 16.9
[2021-01-20 08:25] VITALS: BP 90/39; PULSE 56; RESP 17; TEMP 36.8; O2SAT 95; BMI 15.3
--- NOTE | 2021-01-20 08:36 | ED.DCSUM_ITS ---
History of Present Illness Chief Complaint: Seizure Narrative: 65-year-old female with history of seizure disorder presenting for evaluation. states that he is the primary caregiver and he is unable to take care of her fully. He states that she is not eating and drinking. She is unable to take care of herself. She is on Keppra 1000 mg twice daily but did not take her medication this morning. Last seizure was last night. Patient's is asking for help and does not necessarily want her to go to a [facility] but needs assistance with caregiving for her. - Past Medical History (1) Seizure Status: Chronic (2) Ta's paralysis Status: Chronic (3) GERD (gastroesophageal reflux disease) Status: Chronic (4) History of alcohol abuse Status: Chronic Comment: dtr states she drank to relieve hip pain and she only drinks occasionally now Past Medical History - Allergies and Home Meds Allergies/Adverse Reactions: Allergies Penicillins Allergy (Verified 01/20/21 08:24) Unknown Primary Care Physician: Oscar Reese MD [Primary Care Provider] - Prior records reviewed: Yes Past Medical History: None - Reviewed in problem list Surgical History: - - tubal ligation in her 20's. Total hip arthroplasty. Lives: Spouse/ Significant Other Smoking Status: Current every day smoker Alcohol: None Drugs: None - Family History Paternal Family History: Reports: - - Unable to obtain because patient is obtunded. Family is not present. Old records reviewed did not show family history. Maternal Family History: Reports: - - Unable to obtain since patient is obtunded and family is not present. Old records reviewed did not show family history. Review of Systems General: Denies: Chills, Fever, Sweats Eyes: Denies: Visual changes - bilaterally, Diplopia ENT: Denies: Rhinorrhea, Sore throat Cardiovascular: Denies: Chest pain, Palpitations Respiratory: Denies: Dyspnea, Cough, Dyspnea on exertion Gastrointestinal: Denies: Abdominal pain, Nausea, Vomiting, Diarrhea, Melena, Hematochezia Genitourinary: Denies: Dysuria, Hematuria, Frequency Musculoskeletal: Denies: Back pain, Extremity Pain Skin: Denies: Rash, Wounds Neurological: Reports: - - Seizure last evening.. Denies: Headache, Weakness, Parasthesia Psych: Denies: Depression, Anxiety Physical Exam Vital Signs/Narrative: Vital Signs Temp Pulse Resp BP Pulse Ox 01/20/21 08:25 98.3 F 56 L 17 90/39 L 95 Inital Vital Signs reviewed: Yes General: Cachectic, No Acute Distress Head: Atraumatic. Negative for: Normocephalic Eyes: Perrl, EOMI ENT: Moist mucous membranes, Sinus tenderness Cardiovascular: Regular rhythm, Tachycardia Respiratory: No distress, CTA bilaterally Abdomen: Soft, Nontender, Nondistended Extremities: Nontender, No edema Skin: Normal color, No rash. Negative for: Cyanosis, Diaphoresis Neurological: Cranial nerves II-XII grossly intact, Disoriented Diagnostic/Tx/Re-eval Clinical Impression(s) from Imaging Studies Brain CT 01/20/21 08:48 IMPRESSION: Chronic involutional changes of the brain. Right frontoparietal chronic subdural hematoma new since previous exam. Electronically Signed: Cade Lebron MD at 9:38 EST Tel , Service support , Chest X-Ray 01/20/21 09:30 IMPRESSION: No active pulmonary disease. Fractures of the lateral aspect of the left ribs. Electronically Signed: Cade Lebron MD at 10:23 EST Tel , Service support , Cervical Spine CT 01/20/21 11:04 IMPRESSION: 1. Multilevel degenerative changes, as described above. 2. Mild retrolisthesis of C5 over C6 likely due to degenerative changes. 3. Straightening of the cervical spine which could be due to muscle spasm. 4. No demonstrated acute fracture. 5. If symptoms persist, MRI of the cervical spine is recommended. Electronically Signed: Cade Lebron MD at 12:35 EST Tel , Service support , Laboratory Data 01/20/21 01/20/21 01/20/21 08:45 08:45 08:45 WBC 14.6 H RBC 3.87 L Hgb 13.9 Hct 40.6 MCV 104.9 H MCH 35.9 H MCHC 34.2 RDW Std Deviation 51.1 H RDW Coeff of Dariela 13.3 Plt Count 319 MPV 9.7 Sodium 137 Potassium 4.1 Chloride 101 Carbon Dioxide 22.0 Anion Gap 14 BUN 57 H Creatinine 1.61 H Estim Creat Clear Calc 22.03 Est GFR (MDRD) Af Amer 41 L Est GFR (MDRD) Non-Af 34 L BUN/Creatinine Ratio 35.4 H Glucose 429 H Lactic Acid Calcium 8.6 Total Bilirubin 1.10 H AST 75 H ALT 45 Alkaline Phosphatase 443 H Troponin I 0.054 H Total Protein 7.8 Albumin 3.3 Globulin 4.5 H Albumin/Globulin Ratio 0.7 L Urine Color Urine Clarity Urine pH Ur Specific [place] Urine Protein Urine Glucose (UA) Urine Ketones Urine Occult Blood Urine Nitrite Urine Bilirubin Urine Urobilinogen Ur Leukocyte Esterase Urine RBC Urine WBC Ur Squamous Epith Cells Urine Bacteria Urine Mucus Ethyl Alcohol < 3.0 01/20/21 01/20/21 08:45 09:10 WBC RBC Hgb Hct MCV MCH MCHC RDW Std Deviation RDW Coeff of Dariela Plt Count MPV Sodium Potassium Chloride Carbon Dioxide Anion Gap BUN Creatinine Estim Creat Clear Calc Est GFR (MDRD) Af Amer Est GFR (MDRD) Non-Af BUN/Creatinine Ratio Glucose Lactic Acid 8.1 H* Calcium Total Bilirubin AST ALT Alkaline Phosphatase Troponin I Total Protein Albumin Globulin Albumin/Globulin Ratio Urine Color Yellow Urine Clarity Sl. Cloudy Urine pH 5.0 Ur Specific [place] 1.020 Urine Protein 100 H Urine Glucose (UA) 250 H Urine Ketones 15 H Urine Occult Blood 250 H Urine Nitrite Negative Urine Bilirubin 1 H Urine Urobilinogen 1 H Ur Leukocyte Esterase 25 H Urine RBC 0 SEEN Urine WBC 0-5 SEEN Ur Squamous Epith Cells 0-5 SEEN Urine Bacteria 3+ Urine Mucus 0 SEEN Ethyl Alcohol - Medical Decision Making 65-year-old female presenting with her . He expresses concern that she had a seizure last night and he did not give her any seizure medications. She has not been eating and drinking well. IV access was established. Patient was given 1000 mg of Keppra. She was made NPO. He was given IV fluids. White blood cell count 14.6, hemoglobin 13.9, platelets 319, creatinine 1.61, lactic a satya 8.1, alk phos 443, bilirubin 1.1 troponin 0 0.054 cath urine specimen 3+ bacteria. After patient was medicated she had 1 reportable chest x-ray which showed rib fractures from 6-11 on the left interpreted by myself. Radiology does agree. CT brain obtained shows new subdural hematoma from previous however it it is read as chronic. I did call her to inform him of our findings and he did at that point say that he remembered her falling at home 2 days ago. the hospitalist at [facility] did not feel comfortable excepting the patient. I spoke with the trauma physician at [facility] Dr. Amaro accepted the patient in transfer. I did obtain CT imaging of the cervical spine which was negative for acute fracture. Given that the patient has UTI urine culture was sent. Patient was given 1 g Rocephin IV. Patient is transported in stabilized condition. Impression: 1. Subdural hematoma 2. Breakthrough seizure 3. Urinary tract infection 4. Lactic acidosis ED Disposition - Plan for ED Patient: [facility] Referrals: Oscar Reese MD [Primary Care Provider] -
--- NOTE | 2021-01-20 08:48 | CT_ITS ---
STUDY: CT BRAIN WITHOUT CONTRAST REASON FOR EXAM: Female, 65 years old. Altered mental status RADIATION DOSAGE (If Supplied By Facility): CTDIvol = ( 44.99 ) mGy, DLP = ( 796.11 ) mGycm TECHNIQUE: Transaxial CT imaging of the brain was performed without administration of intravenous contrast material. Individualized dose optimization techniques were used for this CT. COMPARISON: 01/23/2020 FINDINGS: Normal soft tissue structures. Normal calvarium. There is moderate cerebral atrophy with widening of the extra-axial spaces and ventricular dilatation. Right frontoparietal chronic subdural hematoma new since previous examination measuring about 7 mm in thickness. There are areas of decreased attenuation within the white matter tracts of the supratentorial brain, consistent with mild microvascular disease changes. Normal basal ganglia and thalami. Normal brainstem. Normal cerebellum. There is no intracranial hemorrhage. There are no findings of an acute ischemic infarction. Normal visualized paranasal sinuses. Status post right mastoidectomy. CT/Brain/Head without Contrast IMPRESSION: Chronic involutional changes of the brain. Right frontoparietal chronic subdural hematoma new since previous exam. Electronically Signed: Cade Lebron MD at 9:38 EST Tel , Service support ,
--- NOTE | 2021-01-20 08:48 | EKG12_ITS ---
Test Reason : SEIZURE Blood Pressure : / mmHG Vent. Rate : 124 BPM Atrial Rate : 124 BPM P-R Int : 142 ms QRS Dur : 074 ms QT Int : 322 ms P-R-T Axes : 072 061 091 degrees QTc Int : 462 ms Sinus tachycardia Right atrial enlargement Septal infarct , age undetermined Abnormal ECG Confirmed by CORNELL COATS, JOHN ([id number]), sound editor RUBÉN MCGRAW ([id number]) on 01/23/2021 12:34:59 PM Referred By: YAEL Confirmed By:JOHN SARABIA MD
[2021-01-20 09:00] LABS: Hematocrit 40.6 % (37-47); Hemoglobin 13.9 g/dL (12.0-15.0); Mean Corp Hgb Conc 34.2 g/dL (32-36); Mean Corpuscular Hgb 35.9 pg (27.0-32.0); Mean Corpuscular Volume 104.9 fL (81-99); Mean Platelet Vol. 9.7 fl (6.2-12.0); Platelet Count 319 K/mm3 (150-450); RBC Distribution Width CV 13.3 % (11.6-14.6); RBC Distribution Width SD 51.1 fl (35.1-43.9); Red Blood Count 3.87 M/mm3 (4.2-5.4); White Blood Count 14.6 K/mm3 (4.4-11.0)
[2021-01-20 09:02] VITALS: BP 94/64; PULSE 122; RESP 28; O2SAT 97
[2021-01-20] MEDS: 0.9% Normal Saline 1,000 ML 1000 ML IV (09:02)
[2021-01-20] MEDS: levETIRAcetam IV 1,000 MG/100 ML BAG 400 MG IV (09:02)
[2021-01-20 09:14] LABS: ALB/GLOB Ratio 0.7 RATIO (0.9-2.4); AST(SGOT) 75 U/L (15-37); Alanine Aminotransfer ALT/SGPT 45 U/L (13-56); Albumin, Serum 3.3 g/dL (3.2-5.0); Alkaline Phosphatase 443 U/L (45-117); Anion Gap 14 (5-15); BUN 57 mg/dL (7-18); BUN/Creat Ratio 35.4 RATIO (10-20); Calcium,Total 8.6 mg/dL (8.5-10.1); Chloride 101 mmol/L (98-107); Creatinine, Serum 1.61 mg/dL (0.55-1.02); EST Glomerular Filtration Rate 34 mL/min (>60); Est Glom Filt Rate - Afr Amer 41 mL/min (>60); Estimated Creatinine Clearance 22.03 ml/min; Globulin 4.5 g/dL (2.2-4.2); Glucose 429 mg/dL (74-106); Potassium 4.1 mmol/L (3.5-5.1); Protein, Total 7.8 g/dL (6.4-8.2); Sodium Level 137 mmol/L (136-145)
[2021-01-20 09:16] LABS: Mucous, Urine 0 SEEN /hpf (<or=2+); Red Blood Cells-Urine 0 SEEN /hpf (0-5)
[2021-01-20 09:18] LABS: Color, Urine Yellow (Yellow); Glucose, Dipstick 250 mg/dl (Normal); Ketone-Dipstick 15 mg/dl (Negative); Leukocyte Esterase-Dipstick 25 /ul (Negative); Nitrite-Dipstick Negative (Negative); Occult Blood-Urine 250 /ul (Negative); Protein-Dipstick 100 mg/dl (Negative); Urine Clarity Sl. Cloudy (Clear); Urine Urobilinogen 1 mg/dl (Normal)
[2021-01-20 09:23] LABS: Alcohol, Blood (Medical)-Serum < 3.0 mg/dL
[2021-01-20 09:27] LABS: Lactic Acid 8.1 mmol/L (0.4-1.9)
[2021-01-20 09:28] LABS: Urine Bilirubin Dipstick 1 mg/dL (Negative)
--- NOTE | 2021-01-20 09:30 | RAD_ITS ---
STUDY: X-RAY CHEST REASON FOR EXAM: Female, 65 years old. Altered Mental Status -- increased weakness, seizures TECHNIQUE: Single AP portable view of the chest. COMPARISON: 03/24/2019. FINDINGS: There is hyperinflation of the lungs consistent with chronic obstructive lung disease (COPD). No focal infiltrate is seen. There is no demonstrated pleural abnormality. Normal size heart. Normal mediastinum and naeem. Normal visualized pulmonary arteries. There is atherosclerotic calcification of the aortic arch with tortuosity. Normal visualized thoracic spine. Fractures of the lateral aspect of the left sixth to 11th ribs. There is no demonstrated abnormality of the visualized soft tissue structures of the upper abdomen. RAD/Chest 1 View (Portable) IMPRESSION: No active pulmonary disease. Fractures of the lateral aspect of the left ribs. Electronically Signed: Cade Lebron MD at 10:23 EST Tel , Service support ,
[2021-01-20 09:31] LABS: Bacteria 3+ /hpf (None Seen); Squamous Epithelial Cells - UA 0-5 SEEN /hpf (5-10); White Blood Cells 0-5 SEEN /hpf (0-5)
--- NOTE | 2021-01-20 09:42 | CASEMGMT ---
Addendum entered by Orquidea Pendleton 01/20/21 10:09: List of nursing homes tubed to ED, called and asked someone to give the list to the . He left and is not coming back. SW asked that the list please go w/pt to whichever room she will be sent. RADHA Canales Addendum entered by Orquidea Pendleton 01/20/21 09:58: did also state has looked into Medicaid, his income is too high. This was two years ago. RADHA Canales Original Note: SW called to ED to speak w/ as he is having a difficult time caring for pt at home, looking for resources. PCP: Dr. Oscar Reese Specialists: [facility] in the past, did see [facility] but has not been recently due to COVID Insurance: [employer] primary, Medicare secondary Pharmacy: [facility] on [address] LNOK: , daughter Ambika(is her daughter not husbands's daughter), grandchildren, one living sibling in [place]. states grandson Khoa Jean is the only helpful family member. He states he had to kick daughter out as her stole guns from them, and he is now in [facility]. He states that he has had to kick out Ambika a couple of times. He does not want her involved unless pt is dying. LW/POA: is not certain, is not sure she has ever completed these papers Prior living arrangements/functional level: Pt lives home in one story home w/. Normally she walks with no assistive devices. She is able to ambulate on her own, can get to the bathroom on her own. helps pt with cooking, cleaning, bathing, driving, meds. states four years ago pt fell, hit her head, started having seizures and starting having memory issues at that time. is having a tough time caring for pt at home. He states used to work 12 hour day shifts and switched to 8 hour night shifts, states pt is okay usually in the evenings. states he has a security camera installed that records everything /. HHC/SNF/DME: Pt has had home health in the past, not sure which agency. Pt has not been to SNF in the past. Pt has a walker and cane, but does not use them. In the last 24 hours, states pt is refusing to eat. He also states he came home and there was a melted trash can in another trash can, with camron, in the living room. He is not certain what happened. He states he cannot take care of pt right now, initially was not certaing about chcf placement. He asked about getting training to care for pt, but he also is trying to make it to prison which is less than two years away. SW offered support to . SW gave lists of home care with the star ratings, and also gave him a list of private hire aide agencies. Upon further discussion however, more coming to terms with him not being able to bring pt home at present, and is agreeable to short term chcf placement. SW explained will send a list down to the nurse to give to him of nursing homes that take pt's insurance, and will have SW follow up w/ Friday regarding choices. states understanding. SW updated RN of conversation, and will tube down SNF list shortly. Plan: SNF, facility TBD and precert will be needed. RADHA Canales
[2021-01-20 10:20] VITALS: BP 119/92; PULSE 109; RESP 26; O2SAT 96
--- NOTE | 2021-01-20 11:04 | CT_ITS ---
STUDY: CT CERVICAL SPINE WITHOUT CONTRAST REASON FOR EXAM: Female, 65 years old. Altered mental status RADIATION DOSAGE (If Supplied By Facility): CTDIvol = ( 11.85 ) mGy, DLP = ( 457.13 ) mGycm TECHNIQUE: High resolution transaxial imaging was performed without contrast material. Sagittal and coronal images were reconstructed. Individualized dose optimization techniques were used for this CT. COMPARISON: None FINDINGS: Normal craniovertebral junction. There are mild degenerative changes of the anterior atlantoaxial articulation. Normal odontoid process. There is straightening of the normal cervical lordosis. Normal vertebral bodies and posterior osseous elements. C2-3: Degenerative changes in the right apophyseal joint. No evidence of central spinal canal or bony neural foramina stenosis. C3-4: Degenerative changes in the apophyseal joints bilaterally. No evidence of central spinal canal or bony neural foramina stenosis. C4-5: Degenerative changes in the apophyseal joints worse on the right side. Mild narrowing of the left neural foramina. No evidence of central spinal canal stenosis. C5-6: Severe narrowing of the disc space. Mild retrolisthesis of C5 over C6. Posterior lateral degenerative spurs with narrowing of the bilateral neural foramina. Mild narrowing of the central spinal canal. C6-7: Narrowing of the disc space. Anterior degenerative osteophyte formations. Small posterior lateral degenerative spurs with mild narrowing of the neural foramina. C7-T1: No evidence of central spinal canal or bony neural foramina stenosis. The visualized portions of the lung apices demonstrate no evidence of pneumothorax. CT/Spine Cervical without Contras IMPRESSION: 1. Multilevel degenerative changes, as described above. 2. Mild retrolisthesis of C5 over C6 likely due to degenerative changes. 3. Straightening of the cervical spine which could be due to muscle spasm. 4. No demonstrated acute fracture. 5. If symptoms persist, MRI of the cervical spine is recommended. Electronically Signed: Cade Lebron MD at 12:35 EST Tel , Service support ,
[2021-01-20] MEDS: Ceftriaxone 1 GM/50 ML BAG IV (11:08)
[2021-01-20 11:12] VITALS: BP 136/96; PULSE 109; RESP 20; TEMP 36.6; O2SAT 96
[2021-01-20 12:00] VITALS: BP 125/90; PULSE 105; RESP 20; O2SAT 95
--- NOTE | 2021-01-20 12:27 | ED.RN ---
Care/report to Physicians crew. Pt's Steven called and given [facility] Name, room number and nurse's station phone number.
[2021-01-20 12:54] LABS: Reflex Lactate? Y
== END 2021-01-20 12:31 | disposition short-term general hospital (02) ==
LOC: ED 09:10
PROVIDERS: Emergency Provider Student in an Organized Health Care Education/Training Program; PCP Family Medicine
DX: S06.5X9A Traumatic subdural hemorrhage with loss of consciousness of unspecified duration, initial encounter (principal); W19.XXXA Unspecified fall, initial encounter; Y93.9 Activity, unspecified; Y92.9 Unspecified place or not applicable; Y99.9 Unspecified external cause status; G40.909 Epilepsy, unspecified, not intractable, without status epilepticus; N39.0 Urinary tract infection, site not specified; E87.2 Acidosis; G83.84 Todd's paralysis (postepileptic); K21.9 Gastro-esophageal reflux disease without esophagitis; F17.200 Nicotine dependence, unspecified, uncomplicated
CPT/HCPCS: 70450; 71045; 72125; 80053; 81001; 82077; 83605; 84484; 85027; 87086; 87088; 87186; 93005; 96365; 96367; 99285; A4216

== ENCOUNTER 2021-04-28 08:09 | Inpatient (IN) | payer OTHER, MEDICARE, SELFPAY ==
[2021-04-28] VITALS (10 sets, daily range): BP systolic 76–96; BP diastolic 62–76; PULSE 68–105; RESP 14–22; TEMP 36.2–36.6; O2SAT 96–99; BMI 13.6; BMI 28.3
--- NOTE | 2021-04-28 08:23 | ED.RN ---
SUKHDEEP DUONG CALLED INFORMING THEIR CONCERNS THAT THE PT IS MALNOURISHED, HAS DEMENTIA AND THAT HER WAS VERY HIGH. CONCERNED THAT THE IS THE SOLE CAREGIVER AND PT IS NOT BEING CARED FOR.
--- NOTE | 2021-04-28 08:35 | EDS_ITS ---
HPI History of Present Illness Chief Complaint: Back Informant: patient Narrative Narrative: Patient is a 65-year-old female who is a poor historian. She was sent to the emergency department because her called the ambulance. Apparently she was complaining of back pain. She is denying this now. She has no complaints. The police were concerned that she is being neglected. Reviewing patient's past medical history she does have a history of alcohol ab use. Patient still says that she drinks although she is not able to quantify this. She denies any headache or falls. No head trauma. She denies any vision changes. No chest pain, shortness of breath. No abdominal pain or nausea/vomiting. She denies any urinary symptoms or change in moving bowels. No weakness or loss of sensation in any extremity. [facility] Medical History (Updated 04/28/21 @ 15:[address] Kevon Curry DO) Seizures Home Medications levothyroxine 100 mcg PO DAILY 03/24/19 [History Last Taken Unknown] levetiracetam 1,000 mg PO BID #60 tab 01/25/20 [Rx Last Taken Unknown] mirtazapine 30 mg PO QHS 01/20/21 [History Last Taken Unknown] Allergy/AdvReac Type Severity Reaction Status Date / Time Penicillins Allergy Unknown Verified 04/28/21 08:15 Social History Smoking Status: Current every day smoker tobacco type: cigarettes ROS ROS ED Constitutional Constitutional ED: Denies chills or fever(s) Eyes Eyes: Denies change in vision ENT ENT ED: Denies epistaxis or rhinorrhea Cardiovascular Cardiovascular: Denies chest pain or palpitations Respiratory/Chest Respiratory/Chest: Denies cough, dyspnea or dyspnea on exertion Gastrointestinal Gastrointestinal: Denies abdominal pain, diarrhea, nausea or vomiting Genitourinary Genitourinary ED: Denies dysuria, hematuria or urinary frequency Musculoskeletal Musculoskeletal: Denies back pain or neck pain Integumentary Denies rash Neurologic Neurologic: Denies dizziness, headache(s) or weakness EXAM Physical Exam Const Vital Signs: 04/28/21 08:11 04/28/21 08:15 04/28/21 10:15 Temperature 97.9 F 97.9 F Temperature Source Oral Oral Pulse Rate 105 H 105 H 87 Respiratory Rate 22 H 22 H 20 H Blood Pressure 76/66 L 76/66 L 92/76 Blood Pressure Mean 69 69 81 Pulse Ox 99 99 97 Oxygen Delivery Method Room Air Room Air 04/28/21 12:11 Temperature Temperature Source Pulse Rate 91 Respiratory Rate 16 Blood Pressure 87/68 L Blood Pressure Mean 74 Pulse Ox 97 Oxygen Delivery Method Constitutional Narrative: Patient is cachectic appearing. HEENT Reports normocephalic and head/scalp atraumatic Eyes PERRL and EOMs intact bilaterally Neck supple Resp normal respiratory effort and clear to auscultation bilaterally Auscultation: Negative for rales, rhonchi or wheezes Cardio regular rate, regular rhythm and no murmurs GI normal to inspection, nondistended, normoactive bowel sounds and non-tender Palpation: soft; Negative for guarding or rebound tenderness present Back/Spine no CVA tenderness Extremity normal to inspection General Extremety ED: Negative for edema or tenderness General Extremity: Negative for edema Neuro CN's II-XII intact bilaterally and no sensory deficits noted Neuro Narrative: Oriented to person and place but not time. She believes it is November 1954. Sensorium / Orientation: alert Motor Exam: strength 5/5 throughout Skin no rashes or lesions noted MDM MDM MDM Narrative Medical decision making narrative: Patient presents to the emergency department as her called ambulance for back pain. Patient is denying this. She has no complaints. She is not completely oriented. On arrival she is hypotensive but given her severe her cachectic appearance I believe that this is by not far off of her baseline. We will start some IV fluids and check basic lab work. Patient's lab work showed an elevated troponin. She has had high troponins in the past. This was repeated and appears to be stable. Urine is positive for urinary tract infection. She is given a first dose of Rocephin here in the ED. She does appear confused on most questions. Did contact her PCP who states she is most likely not going to follow-up. She has been very noncompliant with things in the past. We did attempt to contact patient's family member who did not answer. Whenever asked to this was patient states she lives by herself. I do not feel patient is appropriate for discharge home. She will likely need social work msw to evaluate her living situation and monitor her troponin and treat her UTI as an inpatient. She otherwise has been stable throughout ED stay. She is agreeable with this plan. Lab Data Labs: Laboratory Results - last 24 hr 04/28/21 04/28/21 04/28/21 08:15 08:15 08:15 WBC 7.7 RBC 3.61 L Hgb 10.5 L Hct 31.5 L MCV 87.3 MCH 29.1 MCHC 33.3 RDW Std Deviation 64.9 H RDW Coeff of Dariela 20.8 H Plt Count 341 MPV 9.3 Immature Gran % (Auto) 0.300 Neut % (Auto) 46.7 L Lymph % (Auto) 35.4 [place] % (Auto) 17.1 H Eos % (Auto) 0.4 Baso % (Auto) 0.1 Absolute Neuts (auto) 3.6 Absolute Lymphs (auto) 2.74 Nucleated RBC % 0 Anisocytosis 1+ Sodium 131 L Potassium 3.5 Chloride 89 L Carbon Dioxide 34.0 H Anion Gap 8 BUN 32 H Creatinine 0.82 Estim Creat Clear Calc 38.35 Est GFR (MDRD) Af Amer 89 Est GFR (MDRD) Non-Af 74 BUN/Creatinine Ratio 38.8 H Glucose 103 Calcium 7.3 L Total Bilirubin 0.30 AST 33 ALT 21 Alkaline Phosphatase 142 H Troponin I 0.108 H Total Protein 5.7 L Albumin 1.6 L Globulin 4.1 Albumin/Globulin Ratio 0.4 L Urine Color Urine Clarity Urine pH Ur Specific [place] Urine Protein Urine Glucose (UA) Urine Ketones Urine Occult Blood Urine Nitrite Urine Bilirubin Urine Urobilinogen Ur Leukocyte Esterase Urine RBC Urine WBC Ur Squamous Epith Cells Urine Bacteria Urine Mucus Urine Opiates Screen Urine Methadone Screen Ur Barbiturates Screen Ur Phencyclidine Scrn Ur Amphetamines Screen U Methamphetamin-MDMA U Benzodiazepines Scrn Urine Cocaine Screen U Cannabinoids Screen Ur Drug Screen Comment Ethyl Alcohol < 3.0 04/28/21 04/28/21 04/28/21 11:28 11:28 11:55 WBC RBC Hgb Hct MCV MCH MCHC RDW Std Deviation RDW Coeff of Dariela Plt Count MPV Immature Gran % (Auto) Neut % (Auto) Lymph % (Auto) [place] % (Auto) Eos % (Auto) Baso % (Auto) Absolute Neuts (auto) Absolute Lymphs (auto) Nucleated RBC % Anisocytosis Sodium Potassium Chloride Carbon Dioxide Anion Gap BUN Creatinine Estim Creat Clear Calc Est GFR (MDRD) Af Amer Est GFR (MDRD) Non-Af BUN/Creatinine Ratio Glucose Calcium Total Bilirubin AST ALT Alkaline Phosphatase Troponin I 0.122 H Total Protein Albumin Globulin Albumin/Globulin Ratio Urine Color Yellow Urine Clarity Cloudy Urine pH 8.0 Ur Specific [place] 1.010 Urine Protein Negative Urine Glucose (UA) Normal Urine Ketones Negative Urine Occult Blood Negative Urine Nitrite Positive H Urine Bilirubin Negative Urine Urobilinogen 4 H Ur Leukocyte Esterase 25 H Urine RBC 0 SEEN Urine WBC 0-5 SEEN Ur Squamous Epith Cells 0-5 SEEN Urine Bacteria 3+ Urine Mucus 0 SEEN Urine Opiates Screen NEGATIVE Urine Methadone Screen NEGATIVE Ur Barbiturates Screen NEGATIVE Ur Phencyclidine Scrn NEGATIVE Ur Amphetamines Screen NEGATIVE U Methamphetamin-MDMA NEGATIVE U Benzodiazepines Scrn NEGATIVE Urine Cocaine Screen NEGATIVE U Cannabinoids Screen POSITIVE H Ur Drug Screen Comment Ethyl Alcohol Radiography Diagnostic Testing: Radiology Impression Brain CT 04/28/21 08:38 IMPRESSION: Chronic involutional changes of the brain. No acute intracranial process. Electronically Signed: Cade Lebron MD at 9:09 EDT Tel , Service support , Chest X-Ray 04/28/21 09:48 IMPRESSION: 1. COPD changes. 2. No active pulmonary disease. Electronically Signed: Cade Lebron MD at 10:55 EDT Tel , Service support , EKG Initial EKG: Attestation: I personally reviewed and interpreted this EKG as follows: (Rate of 91 bpm and normal sinus rhythm. There are PACs present. Prolonged QTC of 553. No significant ST elevations or depressions. No T wave abnormalities.) Discharge Plan Triage Chief Complaint: Back ED Provider: Kevon Curry Dx/Rx/DC Orders Clinical Impression: Acute UTI, Elevated troponin, AMS (altered mental status) Primary Care Provider: Oscar Reese Disposition Disposition: Acute Care Hospital [facility]
--- NOTE | 2021-04-28 08:38 | CT_ITS ---
STUDY: CT BRAIN WITHOUT CONTRAST REASON FOR EXAM: Female, 65 years old. Altered mental status. RADIATION DOSAGE (If Supplied By Facility): CTDIvol = ( 44.99 ) mGy, DLP = ( 748.30 ) mGycm TECHNIQUE: Transaxial CT imaging of the brain was performed without administration of intravenous contrast material. Individualized dose optimization techniques were used for this CT. COMPARISON: 01/20/2021. FINDINGS: Normal soft tissue structures. Normal calvarium. There is moderate cerebral atrophy with widening of the extra-axial spaces and ventricular dilatation. Resolved mild right frontoparietal chronic subdural hematoma. There are areas of decreased attenuation within the white matter tracts of the supratentorial brain, consistent with microvascular disease changes. Normal basal ganglia and thalami. Normal brainstem. Normal cerebellum. There is no intracranial hemorrhage. There are no findings of an acute ischemic infarction. Minimal mucosal thickening of the left maxillary sinus. Status post right mastoidectomy unchanged. CT/Brain/Head without Contrast IMPRESSION: Chronic involutional changes of the brain. No acute intracranial process. Electronically Signed: Cade Lebron MD at 9:09 EDT Tel , Service support ,
[2021-04-28 08:39] LABS: Absolute Lymphocyte Count 2.74 X10^3/uL (0.83-4.51); Absolute Neutrophil Count 3.6 X10^3/uL (2.0-7.7); Basophil# 0.01 X10^3/uL; Basophil% 0.1 % (0-1); Eosinophil# 0.03 X10^3/uL; Eosinophils% 0.4 % (0-5); Hematocrit 31.5 % (37-47); Hemoglobin 10.5 g/dL (12.0-15.0); Lymphocyte # 2.74 X10^3/ul (0.83-4.51); Lymphocyte % 35.4 % (19-41); Mean Corp Hgb Conc 33.3 g/dL (32-36); Mean Corpuscular Hgb 29.1 pg (27.0-32.0); Mean Corpuscular Volume 87.3 fL (81-99); Mean Platelet Vol. 9.3 fl (6.2-12.0); Monocyte# 1.32 X10^3/uL; Monocyte% 17.1 % (0-10); NRBC Flagged by Analyzer 0 % (0-5); Neutrophil # 3.62 X10^3/uL (2.7-7.7); Neutrophil % 46.7 % (47-70); POSITIVE MORPHOLOGY YES; Platelet Count 341 K/mm3 (150-450); RBC Distribution Width CV 20.8 % (11.6-14.6); RBC Distribution Width SD 64.9 fl (35.1-43.9); Red Blood Count 3.61 M/mm3 (4.2-5.4); White Blood Count 7.7 K/mm3 (4.4-11.0)
[2021-04-28 08:40] LABS: Differential Indicated SCAN CRITERIA MET
[2021-04-28 09:08] LABS: ALB/GLOB Ratio 0.4 RATIO (0.9-2.4); AST(SGOT) 33 U/L (15-37); Alanine Aminotransfer ALT/SGPT 21 U/L (13-56); Albumin, Serum 1.6 g/dL (3.2-5.0); Alkaline Phosphatase 142 U/L (45-117); Anion Gap 8 (5-15); BUN 32 mg/dL (7-18); BUN/Creat Ratio 38.8 RATIO (10-20); Calcium,Total 7.3 mg/dL (8.5-10.1); Chloride 89 mmol/L (98-107); Creatinine, Serum 0.82 mg/dL (0.55-1.02); EST Glomerular Filtration Rate 74 mL/min (>60); Est Glom Filt Rate - Afr Amer 89 mL/min (>60); Estimated Creatinine Clearance 38.35 ml/min; Globulin 4.1 g/dL (2.2-4.2); Glucose 103 mg/dL (74-106); Potassium 3.5 mmol/L (3.5-5.1); Protein, Total 5.7 g/dL (6.4-8.2); Sodium Level 131 mmol/L (136-145)
[2021-04-28 09:11] LABS: Anisocytosis 1+
[2021-04-28 09:45] LABS: Alcohol, Blood (Medical)-Serum < 3.0 mg/dL
--- NOTE | 2021-04-28 09:47 | EKG12_ITS ---
Test Reason : BACK PAIN Blood Pressure : / mmHG Vent. Rate : 091 BPM Atrial Rate : 091 BPM P-R Int : 176 ms QRS Dur : 074 ms QT Int : 450 ms P-R-T Axes : 087 060 075 degrees QTc Int : 553 ms Sinus rhythm with Premature atrial complexes Possible Left atrial enlargement Septal infarct , age undetermined Abnormal ECG Confirmed by NICK COATS, BAO ([id number]), assistant editor RUBÉN MCGRAW ([id number]) on 05/03/2021 9:23:46 AM Referred By: Constanza Welsh Confirmed By:BAO ROMERO MD
--- NOTE | 2021-04-28 09:48 | RAD_ITS ---
STUDY: X-RAY CHEST REASON FOR EXAM: Female, 65 years old. Elevated troponin level. TECHNIQUE: Single AP portable view of the chest. COMPARISON: 01/20/2021. FINDINGS: There is hyperinflation of the lungs consistent with chronic obstructive lung disease (COPD). There is no demonstrated pleural abnormality. Normal size heart. Normal mediastinum and naeem. Normal visualized pulmonary arteries. There is atherosclerotic calcification of the aortic arch with tortuosity. Old fractures of left ribs are again seen. There is no demonstrated abnormality of the visualized soft tissue structures of the upper abdomen. RAD/Chest 1 View (Portable) IMPRESSION: 1. COPD changes. 2. No active pulmonary disease. Electronically Signed: Cade Lebron MD at 10:55 EDT Tel , Service support ,
--- NOTE | 2021-04-28 09:53 | ED.RN ---
ambulated to bathroom with walker and assist. pt instructed on clean catch. requested privacy. instructed to pull call light when done.
--- NOTE | 2021-04-28 09:54 | ED.RN ---
pt urinated, did nt use specimen cup
[2021-04-28 11:33] LABS: Mucous, Urine 0 SEEN /hpf (<or=2+); Red Blood Cells-Urine 0 SEEN /hpf (0-5)
[2021-04-28 11:35] LABS: Color, Urine Yellow (Yellow); Glucose, Dipstick Normal (Normal); Ketone-Dipstick Negative (Negative); Leukocyte Esterase-Dipstick 25 /ul (Negative); Nitrite-Dipstick Positive (Negative); Occult Blood-Urine Negative /ul (Negative); Protein-Dipstick Negative (Negative); Urine Bilirubin Dipstick Negative (Negative); Urine Clarity Cloudy (Clear); Urine Urobilinogen 4 mg/dl (Normal)
[2021-04-28 11:42] LABS: Bacteria 3+ /hpf (None Seen); Squamous Epithelial Cells - UA 0-5 SEEN /hpf (5-10); White Blood Cells 0-5 SEEN /hpf (0-5)
[2021-04-28 11:58] LABS: Amphetamine Urine VISTA NEGATIVE (<1000 ng/mL); Barbiturate Urine VISTA NEGATIVE (< 200 ng/mL); Benzodiazepine Urine VISTA NEGATIVE (< 200 ng/mL); Cocaine Urine VISTA NEGATIVE (< 300 ng/mL); Ecstacy Urine VISTA NEGATIVE (< 500 ng/mL); Methadone Urine VISTA NEGATIVE (< 300 ng/mL); PCP Urine VISTA NEGATIVE (< 25 ng/mL); THC Urine VISTA POSITIVE (< 50 ng/mL); Vista UDS pH Range 8
[2021-04-28] MEDS: Ceftriaxone 1 GM/50 ML BAG IV (15:18)
--- NOTE | 2021-04-28 15:34 | HP.PCM.HOS_ITS ---
HPI - General General Date of Admission: 04/28/21 HPI Narrative NAKUL STORM, is a 65 F who presented to the emergency department [facility] on 04/28/2021. Per documentation the squad was called secondary to back pain but upon arrival the patient had no back pain. She appea red very disheveled and smelled quite significantly of urine. It was also documented that her called the EMS but upon discussing this with the patient she indicates she lives alone and has no . She is fairly confused but is alert and oriented to her self and location. Upon my evaluation she had a edwards negative review of systems. She was afebrile with some tachycardia initially on presentation and some mild hypotension. Her respiratory rate and oxygen saturation were stable with an oxygen sat of 95- 99% on room air. Upon review of previous blood pressures it does appear that her blood pressure is typically on the lower side. Current BP is 95/72 and her heart rate has normalized. Her CBC shows a mild anemia with a hemoglobin of 10.5 but was otherwise normal. Her CMP shows mild hyponatremia with a sodium of 131 and mild hypochloremia with a chloride of 89 and an elevated serum bicarbonate at 34. Her BUN is mildly elevated at 32 but she has a normal serum creatinine although I suspect this is elevated given her body habitus and decreased lean muscle mass. Her LFTs are within normal limits. A troponin was obtained and was 0.122. Upon review of previous troponin lab values she seems to have an intermittently elevated level. Her EKG was reviewed and shows no ST- T wave changes consistent with acute ischemia. She does have some PACs on her EKG. Her tox screen is positive for THC but negative for alcohol. She admits to remote alcohol use but states she does not use alcohol consistently any longer. Her UA, leuk esterase and 3+ bacteria. It is similar to her previous UA that she had back in January 2021 where she grew pansensitive E. coli in her urine. She was given ceftriaxone and IV fluids in the emergency department. She will be admitted to PCU for continued treatment of suspected UTI and we will cycle cardiac enzymes. Ms. Quintanilla is not a very reliable historian. [facility] Medical History Seizures Home Medications levothyroxine 100 mcg PO DAILY 03/24/19 [History Last Taken Unknown] levetiracetam 1,000 mg PO BID #60 tab 01/25/20 [Rx Last Taken Unknown] mirtazapine 30 mg PO QHS 01/20/21 [History Last Taken Unknown] Allergy/AdvReac Type Severity Reaction Status Date / Time Penicillins Allergy Unknown Verified 04/28/21 08:15 Social History (Updated 04/28/21 @ 15:[address] Constanza Welsh, DO) Smoking Status: Current every day smoker tobacco type: cigarettes alcohol intake: former details: Patient admits to intermittent use substance use type: marijuana ROS Review of Systems ROS Unobtainable: other Details: Difficult to obtain secondary to enc ephalopathy--> edwards negative ; Denies due to encephalopathy, due to endotracheal tube, due to mental condition or due to mental status Constitutional Constitutional: Denies anorexia, change in weight, chills, fatigue, fever(s), malaise, night sweats, weakness or other Eyes Eyes: Denies blurry vision, change in eye color, change in vision, discharge from eye(s), double vision, erythema, eye pain, loss of vision or other ENT HEENT: Denies abnormal hearing, dysphagia, ear pain, epistaxis, headache(s), hearing loss, nasal congestion, nasal discharge, post nasal drip, sinus pressure, sore throat or other Respiratory/Chest Respiratory/Chest: Denies cough, dyspnea, excessive phlegm production, hemoptysis, productive cough, shortness of breath at rest, shortness of breath with exertion, wheezing or other Gastrointestinal Gastrointestinal: Denies abdominal pain, coffee ground emesis, constipation, diarrhea, dyspepsia, hematemesis, hematochezia, loose stools, melena, nausea, vomiting or other Genitourinary Genitourinary: Denies burning urination, difficulty urinating, dysuria, hematuria, nocturia, urinary frequency, urinary hesitancy, urinary incontinence, urinary urgency or other Musculoskeletal Musculoskeletal: Denies arthralgias, back pain, joint pain, joint stiffness, joint swelling, myalgias, neck pain or other Neurologic Neurologic: Denies abnormal gait, abnormal speech, confusion, disequilibrium, dizziness, focal weakness, headache(s), numbness, paresthesias, seizure-like activity, seizures, syncope, tingling, tremor(s) or other Psychiatric Psychiatric: Denies anxiety, depression, homicidal ideation, suicidal ideation or other Endocrine Endocrinology: Denies change in body appearance, cold intolerance, excessive sweating, heat intolerance, polydipsia, polyuria or other Hematologic/Lymphatic Hematologic/Lymphatic: Denies anemia, easy bleeding, easy bruising, lymphadenopathy or other Allergic/Immunologic Allergic/Immunologic: Denies rhinitis, hives, eczemia, asthma or other Vital Signs Vital Signs Vital Signs: 04/28/21 08:11 04/28/21 08:15 04/28/21 10:15 Temperature 97.9 F 97.9 F Temperature Source Oral Oral Pulse Rate 105 H 105 H 87 Respiratory Rate 22 H 22 H 20 H Blood Pressure 76/66 L 76/66 L 92/76 Blood Pressure Mean 69 69 81 Pulse Ox 99 99 97 Oxygen Delivery Method Room Air Room Air 04/28/21 12:11 Temperature Temperature Source Pulse Rate 91 Respiratory Rate 16 Blood Pressure 87/68 L Blood Pressure Mean 74 Pulse Ox 97 Oxygen Delivery Method Weight Weight: 36 kg Body Mass Index (BMI) 13.6 Physical Exam Const alert and no apparent distress Constitutional Narrative: Cachectic and frail upper middle-aged white female who appears much older than stated age, lying in bed, nursing at bedside drawing blood General Appearance: cooperative, comfortable, disheveled and other Smells strongly of urine Orientation / Consciousness: oriented to person and confused; Negative for oriented to place or oriented to time Nutritional Appearance: cachectic HEENT normocephalic, head/scalp atraumatic, hearing grossly normal bilaterally, moist oral mucous membranes and oropharynx normal; Negative for dentition normal HEENT Narrative: Temporal wasting with prominent zygomatic arches, dentures in place Mouth: oral and palatal mucosa normal Eyes PERRL, EOMs intact bilaterally and conjunctivae normal Neck no lymphadenopathy, supple, no JVD and no carotid bruits Resp normal respiratory effort, no retractions and no use of accessory muscles Resp Narrative: Diffusely diminished but clear Auscultation: Negative for crackles, rales, rhonchi or wheezes Cardio regular rate, regular rhythm, S1 normal heart sound, S2 normal heart sound, no murmurs, no rub, no gallops, no clicks and no JVD GI normal to inspection, nondistended, normoactive bowel sounds, soft to palpation, non-tender and non-distended; Negative for hepatosplenomegaly GI Narrative: Markedly thin Extremity Extremity Narrative: Significant decrease in lean muscle mass, left second digit on foot with erythema and toenail is growing into the skin Peripheral Pulses: Yes radial pulses present bilateral 2+, posterior tibial pulses present bilateral 1+ and dorsalis pedis pulses present bilateral 1+ Skin no rashes or lesions noted, skin turgor normal, no jaundice, no petechiae and no mottling Skin Narrative: Healing wound on left knee--> patient unclear how it got there Neuro CN's II-XII intact bilaterally, moves all extremities and no focal motor deficits Neuro Narrative: Generalized weakness Sensorium / Orientation: awake, alert and oriented to person; Negative for oriented to place or oriented to time Speech: speech normal Motor Exam: Negative for strength 5/5 throughout Psych Psych Narrative: Patient is confused Results Lab / Micro Data Attestation: I reviewed the patient's lab results. Result Diagrams: 04/28/21 08:15 04/28/21 08:15 Labs: Laboratory Results - last 24 hr 04/28/21 04/28/21 04/28/21 08:15 08:15 08:15 WBC 7.7 RBC 3.61 L Hgb 10.5 L Hct 31.5 L MCV 87.3 MCH 29.1 MCHC 33.3 RDW Std Deviation 64.9 H RDW Coeff of Dariela 20.8 H Plt Count 341 MPV 9.3 Immature Gran % (Auto) 0.300 Neut % (Auto) 46.7 L Lymph % (Auto) 35.4 [place] % (Auto) 17.1 H Eos % (Auto) 0.4 Baso % (Auto) 0.1 Absolute Neuts (auto) 3.6 Absolute Lymphs (auto) 2.74 Nucleated RBC % 0 Anisocytosis 1+ Sodium 131 L Potassium 3.5 Chloride 89 L Carbon Dioxide 34.0 H Anion Gap 8 BUN 32 H Creatinine 0.82 Estim Creat Clear Calc 38.35 Est GFR (MDRD) Af Amer 89 Est GFR (MDRD) Non-Af 74 BUN/Creatinine Ratio 38.8 H Glucose 103 Calcium 7.3 L Total Bilirubin 0.30 AST 33 ALT 21 Alkaline Phosphatase 142 H Troponin I 0.108 H Total Protein 5.7 L Albumin 1.6 L Globulin 4.1 Albumin/Globulin Ratio 0.4 L Urine Color Urine Clarity Urine pH Ur Specific [place] Urine Protein Urine Glucose (UA) Urine Ketones Urine Occult Blood Urine Nitrite Urine Bilirubin Urine Urobilinogen Ur Leukocyte Esterase Urine RBC Urine WBC Ur Squamous Epith Cells Urine Bacteria Urine Mucus Urine Opiates Screen Urine Methadone Screen Ur Barbiturates Screen Ur Phencyclidine Scrn Ur Amphetamines Screen U Methamphetamin-MDMA U Benzodiazepines Scrn Urine Cocaine Screen U Cannabinoids Screen Ur Drug Screen Comment Ethyl Alcohol < 3.0 04/28/21 04/28/21 04/28/21 11:28 11:28 11:55 WBC RBC Hgb Hct MCV MCH MCHC RDW Std Deviation RDW Coeff of Dariela Plt Count MPV Immature Gran % (Auto) Neut % (Auto) Lymph % (Auto) [place] % (Auto) Eos % (Auto) Baso % (Auto) Absolute Neuts (auto) Absolute Lymphs (auto) Nucleated RBC % Anisocytosis Sodium Potassium Chloride Carbon Dioxide Anion Gap BUN Creatinine Estim Creat Clear Calc Est GFR (MDRD) Af Amer Est GFR (MDRD) Non-Af BUN/Creatinine Ratio Glucose Calcium Total Bilirubin AST ALT Alkaline Phosphatase Troponin I 0.122 H Total Protein Albumin Globulin Albumin/Globulin Ratio Urine Color Yellow Urine Clarity Cloudy Urine pH 8.0 Ur Specific [place] 1.010 Urine Protein Negative Urine Glucose (UA) Normal Urine Ketones Negative Urine Occult Blood Negative Urine Nitrite Positive H Urine Bilirubin Negative Urine Urobilinogen 4 H Ur Leukocyte Esterase 25 H Urine RBC 0 SEEN Urine WBC 0-5 SEEN Ur Squamous Epith Cells 0-5 SEEN Urine Bacteria 3+ Urine Mucus 0 SEEN Urine Opiates Screen NEGATIVE Urine Methadone Screen NEGATIVE Ur Barbiturates Screen NEGATIVE Ur Phencyclidine Scrn NEGATIVE Ur Amphetamines Screen NEGATIVE U Methamphetamin-MDMA NEGATIVE U Benzodiazepines Scrn NEGATIVE Urine Cocaine Screen NEGATIVE U Cannabinoids Screen POSITIVE H Ur Drug Screen Comment Ethyl Alcohol Radiology Impression Brain CT 04/28/21 08:38 IMPRESSION: Chronic involutional changes of the brain. No acute intracranial process. Electronically Signed: Cade Lebron MD at 9:09 EDT Tel , Service support , Chest X-Ray 04/28/21 09:48 IMPRESSION: 1. COPD changes. 2. No active pulmonary disease. Electronically Signed: Cade Lebron MD at 10:55 EDT Tel , Service support , Assessment & Plan Assessment/Plan (1) Seizure disorder: (2) Acute UTI: (3) Elevated troponin: (4) Metabolic encephalopathy: (5) Anemia: PLAN: Acute cystitis/UTI -Suspect this is related to poor care/self-neglect -Patient smelled of urine upon admission -Ceftriaxone initiated in emergency department--> we will continue -Would treat for 3 days -Had an E. coli UTI in January 2021 that was pansensitive E. coli -Blood and urine cultures have been sent Troponin elevation -Upon review of previous lab, patient does tend to have an elevated troponin -No recent cardiac testing has been performed -EKG shows no acute signs of ischemia -Start aspirin -Check lipids in a.m. -Cycle cardiac enzymes -Check echocardiogram--> work-up further if wall motion abnormality or troponins continue to rise Metabolic encephalopathy -Baseline mental status is unclear -Patient was markedly disheveled on admission -May be related to acute infection -Continue to monitor -CT of head was performed in the emergency department and showed only chronic involutional changes and no acute processes Mild anemia -Normocytic -Appears new since her most recent admission -Check iron studies -Guaiac stool Mild dehydration -I would expect her BUN and creatinine to be very low given her muscle mass -It is documented she weighs 79.6 kg--> I suspect this is markedly inaccurate given her appearance -IV fluids with normal saline at 75 cc/h -Repeat BMP in a.m. Severe malnutrition -We will initiate with cardiac diet but liberalize if able -Supplements ordered -Dietitian consult Hypothyroidism -Check TSH given weight issues -Continue levothyroxine History of seizure disorder -Continue home Keppra Suspected COPD/tobacco abuse-ongoing -Recommend cessation -As needed aerosols -Patient deferred nicotine patch on admission History of alcohol abuse -Patient unable to tell me when her last drink was -Tox screen is negative for alcohol on admission and has been in the recent past Debility/generalized weakness -PT/OT consult -Suspect patient will need placement at discharge -I have concerns for self-neglect--> Case management consulted for Adult Protective Services consultation and discharge planning -Patient may need placed at discharge THC abuse -Recommend cessation DVT prophylaxis -Lovenox daily -SCDs CODE STATUS Full code Charges/Coding Visit Charges Inpatient E&M: 28585 Init Hosp L3
--- NOTE | 2021-04-28 15:40 | ED.RN ---
pt in bed. hospitalist at bedside. pt pulled iv out. restarted/ hospitalist requested bxcx and lactic. drawn at iv start. called lab to draw second set of cx
[2021-04-28] MEDS: 0.9% Normal Saline 1,000 ML 75 ML IV (16:18)
--- NOTE | 2021-04-28 16:18 | ECHOD_ITS ---
Version 2 Reason For Study: CAD Procedure This was a 2D Doppler, Color Flow transthoracic echocardiogram. The study was technically difficult. Exam performed portable in patient room. Left Ventricle Normal LV size. Left ventricular systolic function is normal. The estimated ejection fraction is 65 %. Stage 1 diastolic dysfunction. Mid cavitary dynamic gradient 36 mm/Hg. No regional wall motion abnormalities noted. Right Ventricle Normal RV size. Normal systolic function. Atria Normal left atrium. Normal right atrium. Mitral Valve Normal mitral valve. Tricuspid Valve Normal tricuspid valve. Mild (1+) tricuspid valve insufficiency. Pulmonary artery systolic pressure is 28 mmHg. Aortic Valve Trisinus/trileaflet aortic valve. Mild focal aortic valve calcification. Echogenic mass attached to the ventricular side of the right coronary cusp measuring less than 0.5 cm. Cannot exclude vegetation. Pericardium/Pleural No pericardial effusion. MMode/2D Measurements & Calculations LVIDd: 2.9 cm IVSd: 0.92 cm LVOT diam: 2.0 cm LVIDs: 1.7 cm LVPWd: 0.82 cm LVOT area: 3.0 cm2 RVDd: 2.8 cm FS: 40.6 % Ao root diam: 3.2 cm LAV(MOD-sp4): 33.1 ml LA A4 area: 13.4 cm2 LA dimension(2D): 2.8 cm RA A4 area: 11.7 cm2 Time Measurements MV dec time: 0.37 sec Doppler Measurements & Calculations MV E max delmar: 111.2 cm/sec Lat Peak E' Delmar: 9.4 cm/sec Med Peak E' Delmar: 10.2 cm/sec MV A max delmar: 129.5 cm/sec E/E' lat: 11.9 E/E' med: 10.9 MV E/A: 0.86 MV V2 max: 134.3 cm/sec Ao V2 max: 227.4 cm/sec LV V1 max: 236.7 cm/sec MV max P.2 mmHg Ao max P.1 mmHg LV V1 max P.4 mmHg MV V2 mean: 97.5 cm/sec Ao V2 mean: 175.2 cm/sec LV V1 mean P.4 mmHg MV mean P.1 mmHg Ao mean P.4 mmHg LV V1 mean: 191.2 cm/sec MV V2 VTI: 38.9 cm Ao V2 VTI: 49.6 cm LV V1 VTI: 60.9 cm MVA(VTI): 4.7 cm2 JOSÉ MANUEL(I,D): 3.7 cm2 JOSÉ MANUEL(V,D): 3.1 cm2 SV(LVOT): 183.1 ml TR max delmar: 243.5 cm/sec MV P1/2t-pr_phl: 93.1 msec TR max P.7 mmHg ECHO/Echo Complete Interpretation Summary Normal LV size. Left ventricular systolic function is normal. The estimated ejection fraction is 65 %. Stage 1 diastolic dysfunction. Mild focal aortic valve calcification. Echogenic mass attached to the ventricular side of the right coronary cusp morris uring less than 0.5 cm. Cannot exclude vegetation. Mid cavitary dynamic gradient 36 mm/Hg. Ordering Physician: Constanza Welsh Referring Physician: TYRONE SANCHEZ Performed By: Neris Belle RDCS, RVT
[2021-04-28] MEDS: Enoxaparin 40 MG/0.4 ML Syringe SC (16:23)
[2021-04-28] MEDS: Aspirin 325 MG Tablet PO (16:31)
[2021-04-28 17:25] LABS: Cholesterol 139 mg/dL (200); High Density Lipoprotein 48 mg/dL; Triglycerides 173 mg/dL; Very Low Density Lipoprotein 35 mg/dL (5-40)
--- NOTE | 2021-04-28 20:00 | CM.ED ---
LUCIE Note: Referral Source: RN Reason for Referral : Per RN, police brought patient into the ED and voiced that her was high and that patient is a chronic drinker. RN said that patient's hair is clean but patient appears to be emaciated. Patient's PCP: Mili. Patient said that she has an appointment next month or something like that. Specialist: None Preferred Pharmacy: [facility] Insurance: [employer] Prescription Benefit: Patient reports no issues with paying for prescriptions HCPOA/ Living Will: Patient reports no HCPOA/Living Will and no interest in the documents. LNOK: Steven, patient's Prior Level of Functioning: Patient reports that she does not use any assistive devices at home. DME: Patient reports no DME HHC/SNF: Patient reports no community agency or home health involvement. Patient reports that her , Steven, works at [employer]. Patient reports no other family. Patient denied any drinking issues. Patient denied any drinking problems and patient declined information on [employer]. Patient said that her , Steven, can come and get me. Patient was asked if she was interested in home supportive services and she said like what and this technical proposal writer said meals on wheels or Directions for Home (Passport) and patient declined. Patient said that she is safe at home. SW attempted to call patient's , Steven, two times. Both times it went to voice mail. Plan: stated patient will be admitted. Tere BEAR
[2021-04-28] MEDS: levETIRAcetam 1,000 MG Tablet 1000 MG PO (21:19)
[2021-04-29] VITALS (13 sets, daily range): BP systolic 76–106; BP diastolic 44–60; PULSE 79–90; RESP 16–18; TEMP 36.7–36.9; O2SAT 92–96; BMI 12.8
[2021-04-29] MEDS: 0.9% Saline Lock 10 ML Syringe IV ×2 (00:13→23:18)
[2021-04-29 05:17] LABS: Absolute Lymphocyte Count 1.55 X10^3/uL (0.83-4.51); Absolute Neutrophil Count 2.7 X10^3/uL (2.0-7.7); Basophil# 0.02 X10^3/uL; Basophil% 0.4 % (0-1); Eosinophil# 0.08 X10^3/uL; Eosinophils% 1.5 % (0-5); Hematocrit 25.2 % (37-47); Hemoglobin 8.2 g/dL (12.0-15.0); Lymphocyte # 1.55 X10^3/ul (0.83-4.51); Lymphocyte % 28.7 % (19-41); Mean Corp Hgb Conc 32.5 g/dL (32-36); Mean Corpuscular Hgb 28.5 pg (27.0-32.0); Mean Corpuscular Volume 87.5 fL (81-99); Mean Platelet Vol. 8.9 fl (6.2-12.0); Monocyte# 1.01 X10^3/uL; Monocyte% 18.7 % (0-10); NRBC Flagged by Analyzer 0 % (0-5); Neutrophil # 2.73 X10^3/uL (2.7-7.7); Neutrophil % 50.3 % (47-70); POSITIVE MORPHOLOGY YES; Platelet Count 282 K/mm3 (150-450); RBC Distribution Width SD 65.6 fl (35.1-43.9); Red Blood Count 2.88 M/mm3 (4.2-5.4); White Blood Count 5.4 K/mm3 (4.4-11.0)
[2021-04-29 05:23] LABS: Differential Indicated SCAN CRITERIA MET
[2021-04-29] MEDS: Levothyroxine 100 MCG Tablet PO (05:28)
[2021-04-29] MEDS: 0.9% Normal Saline 1,000 ML 75 ML IV ×3 (05:29→19:36)
[2021-04-29 05:55] LABS: Anion Gap 6 (5-15); BUN 28 mg/dL (7-18); BUN/Creat Ratio 69.5 RATIO (10-20); Calcium,Total 6.7 mg/dL (8.5-10.1); Chloride 97 mmol/L (98-107); EST Glomerular Filtration Rate 168 mL/min (>60); Est Glom Filt Rate - Afr Amer 203 mL/min (>60); Estimated Creatinine Clearance 51.81 ml/min; Ferritin 264 ng/mL (8-252); Glucose 94 mg/dL (74-106); Iron 12 ug/dL (50-170); Iron Binding Capacity,Total 176 ug/dL (250-450); Magnesium 1.3 mg/dL (1.6-2.6); PERCENT IRON SATURATION 6.8 % (15.0-55.0); Phosphorus 2.2 mg/dL (2.5-4.9); Potassium 2.8 mmol/L (3.5-5.1); Sodium Level 133 mmol/L (136-145); Thyroid Stim Hormone (TSH) 0.48 uIU/mL (0.358-3.74)
[2021-04-29 06:15] LABS: Anisocytosis 1+
[2021-04-29] MEDS: Ceftriaxone 1 GM/50 ML BAG IV (08:45)
--- NOTE | 2021-04-29 09:01 | PCM.CONS.GEN ---
Assessment & Plan Assessment/Plan (1) Tinea unguium: (2) Toe pain, right: (3) Toe pain, left: PLAN: I reviewed the patient's case. The etiology of thickened toenails was briefly reviewed including fungus or microtrauma. The nails were debrided with a nail nipper after verbal consent was obtained without incident. The nails were debrided in length and thickness to reduce pressure, potential fungal load, and to prevent wound formation. The patient tolerated this well. The patient elects proceed with palliative care only at this time with the nails and will hold off on further work-up. To follow-up with the foot [facility] Center if needed in the future for this condition. To wear protective and supportive shoes. To check feet daily and keep webspaces clean and dry. To moisturize skin to preserve skin integrity was also recommended. Her smoking habits are noted and she was advised on cessation to maintain adequate perfusion to her lower extremities. Medical comorbidities and management per hospitalist are noted. Thank you for the consultation. Please do not hesitate to call if you have any questions. Lisa King DPM, [facility] [phone] HPI Consult Data Date of Consult: 04/29/21 HPI Narrative HPI Narrative: NAKUL STROM, is a 65 F who presents was admitted for altered mental status was seen bedside this morning for her long thick toenails that she is not able to trim on her own. Her pain is mild. she denies other foot or lower extremity concerns. She denies claudication. She denies rest paresthesias. She denies history of lower extremity wounds. [facility] Medical History Seizures Home Medications levothyroxine 100 mcg PO DAILY 03/24/19 [History Last Taken Unknown] levetiracetam 1,000 mg PO BID #60 tab 01/25/20 [Rx Last Taken Unknown] mirtazapine 30 mg PO QHS 01/20/21 [History Last Taken Unknown] Allergy/AdvReac Type Severity Reaction Status Date / Time Penicillins Allergy Unknown Verified 04/28/21 08:15 Social History (Updated 04/28/21 @ 15:[address] Constanza Welsh DO) Smoking Status: Current every day smoker tobacco type: cigarettes alcohol intake: former details: Patient admits to intermittent use substance use type: marijuana ROS Constitutional Constitutional: Denies chills Cardiovascular Cardiovascular: Denies claudication or numbness in extremities Integumentary Integumentary: Reports nail changes; Denies sores Neurologic Neurologic: Denies numbness Physical Exam Const alert and oriented x3 General Appearance: cooperative HEENT normocephalic Extremity Extremity Narrative: No calf tenderness 2 out of 4 PT and DP pulses bilateral Muscle wasting noted Active range of motion all digits noted and ankles in all directions without pain No pain on palpation to bones, joints, tendons bilateral lower extremities. Compartments remain soft to palpate General Extremity: edema and no tenderness to palpation of joints or extremities; Negative for cyanosis Skin Skin Narrative: no purulence, no streaking, no odor, no infection. Elongated thick dystrophic toenails bilateral 1, 2, 3, 4 and right 5. Pain with nail compression and palpation noted. No ulcers, maceration, necrosis. Her skin is atrophic with minimal hair. General Skin Exam: Negative for erythema Neuro Neuro Narrative: Epicritic sensation is intact via light touch equal and symmetrical to bilateral lower extremity dermatomes. Psych cooperative and affect normal Lab / Micro Data Result Diagrams: 04/29/21 05:07 04/29/21 05:07 Labs: Laboratory Results - last 24 hr 04/28/21 04/28/21 04/28/21 08:15 08:15 08:15 WBC RBC Hgb Hct MCV MCH MCHC RDW Std Deviation RDW Coeff of Dariela Plt Count MPV Immature Gran % (Auto) Neut % (Auto) Lymph % (Auto) [place] % (Auto) Eos % (Auto) Baso % (Auto) Absolute Neuts (auto) Absolute Lymphs (auto) Nucleated RBC % Anisocytosis 1+ Sodium 131 L Potassium 3.5 Chloride 89 L Carbon Dioxide 34.0 H Anion Gap 8 BUN 32 H Creatinine 0.82 Estim Creat Clear Calc 38.35 Est GFR (MDRD) Af Amer 89 Est GFR (MDRD) Non-Af 74 BUN/Creatinine Ratio 38.8 H Glucose 103 Calcium 7.3 L Phosphorus Magnesium Iron TIBC Iron Saturation Ferritin Total Bilirubin 0.30 AST 33 ALT 21 Alkaline Phosphatase 142 H Troponin I 0.108 H Total Protein 5.7 L Albumin 1.6 L Globulin 4.1 Albumin/Globulin Ratio 0.4 L Triglycerides Cholesterol LDL Cholesterol VLDL Cholesterol HDL Cholesterol TSH Urine Color Urine Clarity Urine pH Ur Specific [place] Urine Protein Urine Glucose (UA) Urine Ketones Urine Occult Blood Urine Nitrite Urine Bilirubin Urine Urobilinogen Ur Leukocyte Esterase Urine RBC Urine WBC Ur Squamous Epith Cells Urine Bacteria Urine Mucus Urine Opiates Screen Urine Methadone Screen Ur Barbiturates Screen Ur Phencyclidine Scrn Ur Amphetamines Screen U Methamphetamin-MDMA U Benzodiazepines Scrn Urine Cocaine Screen U Cannabinoids Screen Ur Drug Screen Comment Ethyl Alcohol < 3.0 04/28/21 04/28/21 04/28/21 11:28 11:28 11:55 WBC RBC Hgb Hct MCV MCH MCHC RDW Std Deviation RDW Coeff of Dariela Plt Count MPV Immature Gran % (Auto) Neut % (Auto) Lymph % (Auto) [place] % (Auto) Eos % (Auto) Baso % (Auto) Absolute Neuts (auto) Absolute Lymphs (auto) Nucleated RBC % Anisocytosis Sodium Potassium Chloride Carbon Dioxide Anion Gap BUN Creatinine Estim Creat Clear Calc Est GFR (MDRD) Af Amer Est GFR (MDRD) Non-Af BUN/Creatinine Ratio Glucose Calcium Phosphorus Magnesium Iron TIBC Iron Saturation Ferritin Total Bilirubin AST ALT Alkaline Phosphatase Troponin I 0.122 H Total Protein Albumin Globulin Albumin/Globulin Ratio Triglycerides Cholesterol LDL Cholesterol VLDL Cholesterol HDL Cholesterol TSH Urine Color Yellow Urine Clarity Cloudy Urine pH 8.0 Ur Specific [place] 1.010 Urine Protein Negative Urine Glucose (UA) Normal Urine Ketones Negative Urine Occult Blood Negative Urine Nitrite Positive H Urine Bilirubin Negative Urine Urobilinogen 4 H Ur Leukocyte Esterase 25 H Urine RBC 0 SEEN Urine WBC 0-5 SEEN Ur Squamous Epith Cells 0-5 SEEN Urine Bacteria 3+ Urine Mucus 0 SEEN Urine Opiates Screen NEGATIVE Urine Methadone Screen NEGATIVE Ur Barbiturates Screen NEGATIVE Ur Phencyclidine Scrn NEGATIVE Ur Amphetamines Screen NEGATIVE U Methamphetamin-MDMA NEGATIVE U Benzodiazepines Scrn NEGATIVE Urine Cocaine Screen NEGATIVE U Cannabinoids Screen POSITIVE H Ur Drug Screen Comment Ethyl Alcohol 04/28/21 04/28/21 04/29/21 16:50 21:26 05:07 WBC 5.4 RBC 2.88 L Hgb 8.2 L Hct 25.2 L MCV 87.5 MCH 28.5 MCHC 32.5 RDW Std Deviation 65.6 H RDW Coeff of Dariela 21.0 H Plt Count 282 MPV 8.9 Immature Gran % (Auto) 0.400 Neut % (Auto) 50.3 Lymph % (Auto) 28.7 [place] % (Auto) 18.7 H Eos % (Auto) 1.5 Baso % (Auto) 0.4 Absolute Neuts (auto) 2.7 Absolute Lymphs (auto) 1.55 Nucleated RBC % 0 Anisocytosis 1+ Sodium Potassium Chloride Carbon Dioxide Anion Gap BUN Creatinine Estim Creat Clear Calc Est GFR (MDRD) Af Amer Est GFR (MDRD) Non-Af BUN/Creatinine Ratio Glucose Calcium Phosphorus Magnesium Iron TIBC Iron Saturation Ferritin Total Bilirubin AST ALT Alkaline Phosphatase Troponin I 0.098 H 0.090 H Total Protein Albumin Globulin Albumin/Globulin Ratio Triglycerides 173 Cholesterol 139 LDL Cholesterol 56 VLDL Cholesterol 35 HDL Cholesterol 48 TSH Urine Color Urine Clarity Urine pH Ur Specific [place] Urine Protein Urine Glucose (UA) Urine Ketones Urine Occult Blood Urine Nitrite Urine Bilirubin Urine Urobilinogen Ur Leukocyte Esterase Urine RBC Urine WBC Ur Squamous Epith Cells Urine Bacteria Urine Mucus Urine Opiates Screen Urine Methadone Screen Ur Barbiturates Screen Ur Phencyclidine Scrn Ur Amphetamines Screen U Methamphetamin-MDMA U Benzodiazepines Scrn Urine Cocaine Screen U Cannabinoids Screen Ur Drug Screen Comment Ethyl Alcohol 04/29/21 05:07 WBC RBC Hgb Hct MCV MCH MCHC RDW Std Deviation RDW Coeff of Dariela Plt Count MPV Immature Gran % (Auto) Neut % (Auto) Lymph % (Auto) [place] % (Auto) Eos % (Auto) Baso % (Auto) Absolute Neuts (auto) Absolute Lymphs (auto) Nucleated RBC % Anisocytosis Sodium 133 L Potassium 2.8 L Chloride 97 L Carbon Dioxide 30.0 Anion Gap 6 BUN 28 H Creatinine 0.40 L Estim Creat Clear Calc 51.81 Est GFR (MDRD) Af Amer 203 Est GFR (MDRD) Non-Af 168 BUN/Creatinine Ratio 69.5 H Glucose 94 Calcium 6.7 L Phosphorus 2.2 L Magnesium 1.3 L Iron 12 L TIBC 176 L Iron Saturation 6.8 L Ferritin 264 H Total Bilirubin AST ALT Alkaline Phosphatase Troponin I Total Protein Albumin Globulin Albumin/Globulin Ratio Triglycerides Cholesterol LDL Cholesterol VLDL Cholesterol HDL Cholesterol TSH 0.48 Urine Color Urine Clarity Urine pH Ur Specific [place] Urine Protein Urine Glucose (UA) Urine Ketones Urine Occult Blood Urine Nitrite Urine Bilirubin Urine Urobilinogen Ur Leukocyte Esterase Urine RBC Urine WBC Ur Squamous Epith Cells Urine Bacteria Urine Mucus Urine Opiates Screen Urine Methadone Screen Ur Barbiturates Screen Ur Phencyclidine Scrn Ur Amphetamines Screen U Methamphetamin-MDMA U Benzodiazepines Scrn Urine Cocaine Screen U Cannabinoids Screen Ur Drug Screen Comment Ethyl Alcohol Radiology Impression Brain CT 04/28/21 08:38 IMPRESSION: Chronic involutional changes of the brain. No acute intracranial process. Electronically Signed: Cade Lebron MD at 9:09 EDT Tel , Service support , Chest X-Ray 04/28/21 09:48 IMPRESSION: 1. COPD changes. 2. No active pulmonary disease. Electronically Signed: Cade Lebron MD at 10:55 EDT Tel , Service support ,
[2021-04-29 09:10] LABS: Hematocrit 26.8 % (37-47); Hemoglobin 8.6 g/dL (12.0-15.0)
[2021-04-29] MEDS: Potassium Chloride 10mEq/100mL 10 MEQ/100 ML IV.SOLN. 100 MEQ IV BOLUS ×4 (09:21→12:33)
[2021-04-29] MEDS: levETIRAcetam 1,000 MG Tablet 1000 MG PO ×2 (09:21→21:57)
[2021-04-29] MEDS: Magnesium Sulfate 4gm/100mL 4 GM/100 ML IV.SOLN. IV (09:21)
[2021-04-29] MEDS: Na Biphos/Potassium Phosphate PACKET 1 PACKET PO ×4 (09:21→21:57)
--- NOTE | 2021-04-29 11:17 | EX.NTREPO ---
Medical Nutrition Therapy - History Nutrition Services has been consulted to:: Manage nutrient details of diet order Current diet/nutrition support order:: cardiac. ensure enlive 120mL 4x/day - Anthropometric Measurements Height:: 5 ft 6 in Weight:: 36.015 kg Body Mass Index (BMI):: 12.8 - Relevant Labs Relevant Labs:: RBC 2.88 M/mm3 (4.2-5.4) L 04/29/21 05:07 Hgb 8.6 g/dL (12.0-15.0) L 04/29/21 08:41 Hct 26.8 % (37-47) L 04/29/21 08:41 RDW Std Deviation 65.6 fl (35.1-43.9) H 04/29/21 05:07 RDW Coeff of Dariela 21.0 % (11.6-14.6) H 04/29/21 05:07 Neut % (Auto) 46.7 % (47-70) L 04/28/21 08:15 [place] % (Auto) 18.7 % (0-10) H 04/29/21 05:07 Sodium 133 mmol/L (136-145) L 04/29/21 05:07 Potassium 2.8 mmol/L (3.5-5.1) L 04/29/21 05:07 Chloride 97 mmol/L (98-107) L 04/29/21 05:07 Carbon Dioxide 34.0 mmol/L (21.0-32.0) H 04/28/21 08:15 BUN 28 mg/dL (7-18) H 04/29/21 05:07 Creatinine 0.40 mg/dL (0.55-1.02) L 04/29/21 05:07 BUN/Creatinine Ratio 69.5 RATIO (10-20) H 04/29/21 05:07 Calcium 6.7 mg/dL (8.5-10.1) L 04/29/21 05:07 Phosphorus 2.2 mg/dL (2.5-4.9) L 04/29/21 05:07 Magnesium 1.3 mg/dL (1.6-2.6) L 04/29/21 05:07 Iron 12 ug/dL (50-170) L 04/29/21 05:07 TIBC 176 ug/dL (250-450) L 04/29/21 05:07 Iron Saturation 6.8 % (15.0-55.0) L 04/29/21 05:07 Ferritin 264 ng/mL (8-252) H 04/29/21 05:07 Alkaline Phosphatase 142 U/L (45-117) H 04/28/21 08:15 Troponin I 0.090 ng/mL (<0.045) H 04/28/21 21:26 Total Protein 5.7 g/dL (6.4-8.2) L 04/28/21 08:15 Albumin 1.6 g/dL (3.2-5.0) L 04/28/21 08:15 Albumin/Globulin Ratio 0.4 RATIO (0.9-2.4) L 04/28/21 08:15 - Assessment Food and Nutrient Intake: Pt states she did not eat breakfast this AM and that she does not normally eat breakfast. Describes appetite as fair at home, but after further questioning pt states she only eats ~1x/day. CBW in chart entered as 79.6 kg; however ED wt was 79.4#- admission wt was likely entered incorrectly as pt is severely thin. Will use ED wt for assessment until new wt can be obtained. Pt is not forthcoming w/ providing RDN much information at time of assessment. Per EMR, wt was 101.4# in January 2020 suggesting a 22#/22% wt loss x ~15 months. - Nutrition Diagnosis: Clinical Problem Chronic Disease or Condition Related Malnutrition Clinical Problem - Etiology: chronic, severe malnutrition r/t inadequate energy intake Clinical Problem - Signs/Symptoms: as evidenced by estimated PO intake meeting <75% of nutritional needs >6 months, unintentional wt loss of 22#/22%, severe muscle wasting/fat loss in upper extremities, orbital, and temporal areas, BMI 12.8 Status: Active Problem - Protein Calorie Malnutrition Evidence of Malnutrition Exists: Yes Severe Protein Calorie Malnutrition:: Chronic - Nutrition Intervention Nutrition Prescription: *significant risk for refeeding syndrome given BMI, muscle wasting/fat loss, and electrolyte abnormalities*. 6733-9560 calories/day (1.3xRMR); however may need only 10-15 calories/kg/day for first 3 days of hospitalization if electrolytes remain abnormal. 36-54 g protein/day (1.0-1.5 g/kg). 1080mL fluid/day (30mL/kg) - Food / Nutrient Delivery Interventions Summary of nutrition intervention:: Adjust diet order, Provide oral nutrition supplement Nutrition support ordered as / adjusted to:: will liberalize diet to regular given malnutrition; continue Ensure Enlive w/ medpass. Will monitor acceptance of ONS and provide additional as pt agreeable to. Nutrition education provided?: No - Pt not interested in discussing nutritional status w/ RDN Coordination of Nutrition Care: please obtain current wt; daily wts ordered - MNT Monitoring Active Nutrition Patient: Yes Nutrition Status: Requires Follow Up 3-5 Days
--- NOTE | 2021-04-29 12:25 | PN.HOSP_ITS ---
Documented by User: Montrell STRAUSS 04/29/21 12:45 Subjective Subjective Patient is a 65-year-old female resting in a chair, alert and oriented x3. Patient denies any progression of symptoms. Denies chest pain, shortness of breath, palpitations, hemoptysis, sputum production, fever, chills, N/V/D. Objective Data Objective Data Vital Signs: Vital Signs Temp Pulse Resp BP Pulse Ox 98.1 F 85 16 106/54 L 95 04/29/21 09:15 04/29/21 09:15 04/29/21 09:15 04/29/21 09:15 04/29/21 09:15 Oxygen Flow Rate (L/min) 95 Oxygen Delivery Method Room Air Weight: 79 lb 6.4 oz Body Mass Index (BMI) 12.8 Intake & Output: Intake and Output for Last 24 Hours 04/27/21 04/28/21 04/29/21 23:59 23:59 23:59 Intake Total 750 / 750 1638.75 / 1638.75 Balance 750 / 750 1638.75 / 1638.75 Lab / Micro Data Result Diagrams: 04/29/21 08:41 04/29/21 05:07 Labs: Laboratory Results - last 24 hr 04/28/21 04/28/21 04/28/21 11:55 16:50 21:26 WBC RBC Hgb Hct MCV MCH MCHC RDW Std Deviation RDW Coeff of Dariela Plt Count MPV Immature Gran % (Auto) Neut % (Auto) Lymph % (Auto) [place] % (Auto) Eos % (Auto) Baso % (Auto) Absolute Neuts (auto) Absolute Lymphs (auto) Nucleated RBC % Anisocytosis Sodium Potassium Chloride Carbon Dioxide Anion Gap BUN Creatinine Estim Creat Clear Calc Est GFR (MDRD) Af Amer Est GFR (MDRD) Non-Af BUN/Creatinine Ratio Glucose Calcium Phosphorus Magnesium Iron TIBC Iron Saturation Ferritin Troponin I 0.122 H 0.098 H 0.090 H Triglycerides 173 Cholesterol 139 LDL Cholesterol 56 VLDL Cholesterol 35 HDL Cholesterol 48 TSH 04/29/21 04/29/21 04/29/21 05:07 05:07 08:41 WBC 5.4 RBC 2.88 L Hgb 8.2 L 8.6 L Hct 25.2 L 26.8 L MCV 87.5 MCH 28.5 MCHC 32.5 RDW Std Deviation 65.6 H RDW Coeff of Dariela 21.0 H Plt Count 282 MPV 8.9 Immature Gran % (Auto) 0.400 Neut % (Auto) 50.3 Lymph % (Auto) 28.7 [place] % (Auto) 18.7 H Eos % (Auto) 1.5 Baso % (Auto) 0.4 Absolute Neuts (auto) 2.7 Absolute Lymphs (auto) 1.55 Nucleated RBC % 0 Anisocytosis 1+ Sodium 133 L Potassium 2.8 L Chloride 97 L Carbon Dioxide 30.0 Anion Gap 6 BUN 28 H Creatinine 0.40 L Estim Creat Clear Calc 51.81 Est GFR (MDRD) Af Amer 203 Est GFR (MDRD) Non-Af 168 BUN/Creatinine Ratio 69.5 H Glucose 94 Calcium 6.7 L Phosphorus 2.2 L Magnesium 1.3 L Iron 12 L TIBC 176 L Iron Saturation 6.8 L Ferritin 264 H Troponin I Triglycerides Cholesterol LDL Cholesterol VLDL Cholesterol HDL Cholesterol TSH 0.48 Physical Exam Narrative See subjective. Const alert and oriented x3 Nutritional Appearance: cachectic HEENT head/scalp atraumatic and moist oral mucous membranes Head and Scalp: normocephalic Eyes PERRL, EOMs intact bilaterally and conjunctivae normal Neck no lymphadenopathy, supple and no JVD Resp normal respiratory effort, no retractions and no use of accessory muscles Auscultation: diminished lung sounds Cardio regular rate, regular rhythm, no murmurs and no JVD GI normal to inspection, nondistended, normoactive bowel sounds Extremity normal to inspection, full ROM and no clubbing, cyanosis or edema Skin no rashes or lesions noted and no wounds Neuro CN's II-XII intact bilaterally Psych affect normal Assessment & Plan Assessment/Plan (1) Seizure: (2) Acute UTI: (3) Elevated troponin: (4) Metabolic encephalopathy: (5) Anemia: PLAN: 1) elevated troponin Troponins elevated throughout cycle. EKG demonstrates no ST or T wave abnormalities or evidence of ischemia. Lipid panel ordered and pending. Echocardiogram ordered/pending. 2) metabolic encephalopathy Brain CT on admission only demonstrated chronic involutional changes of the brain. No leukocytosis evident on CBC. Vital signs stable and patient is afebrile. Baseline mental status unknown. Plan; continue to monitor for infection. 3) mild normocytic anemia Hemoglobin currently 8.6, stable from admission. Iron is 12, TIBC 176, serum ferritin 264. Plan; replace iron, continue to monitor CBC. 4) severe malnutrition BMI 12.8. Plan; diet consult ordered, patient may need placement at discharge. 5) hypothyroidism Continue home levothyroxine 6) seizure disorder Continue home Keppra 7) tobacco abuse Cessation advised. 8) debility/generalized weakness PT/OT/case management consult ordered. Suspect placement at discharge. 9) THC abuse Urine urine tox screen positive for cannabinoids, cessation advised. 10) hyponatremia Currently 133. Plan; normal saline ordered, continue to monitor BMP. 11) hypokalemia Currently 2.8. Plan; potassium chloride bolus ordered, continue to monitor BMP. 12) hypomagnesemia Currently 1.3. Plan; magnesium replace, continue to monitor. DVT prophylaxis -Lovenox + SCDs Patient seen by Montrell Castro PA-C, under the supervision of Dr. Lewis Documented by User: Dr. Daphne Lewis MD 04/29/21 14:56 Objective Data Lab / Micro Data Result Diagrams: 04/29/21 08:41 04/29/21 05:07 Charges/Coding Addendum Addendum: This patient was seen in conjunction with RICA Christianson. I have independently interviewed and examined the patient and reviewed pertinent historical, laboratory, and other data. Please refer to RICA Christianson's note for his patient's presentation, findings, and recommendations. I have reviewed and his note and concur with his documentation Patient was seen and examined. She is alert oriented to self. Denied any new complaints. Physical Exam: Gen: Looks in some discomfort, not pale, not jaundiced, appears disheveled CVS:HS I +II, regular, no murmurs RESP: Diminished at lung bases GI: BS present and normal, soft, nontender, no palpable organs EXT:No edema ASSESSMENT: 1. Acute metabolic encephalopathy 2. Severe protein calorie malnutrition 3. Hypokalemia/hypomagnesemia/hypophosphatemia 4. Hypothyroidism 5. Seizure disorder 6. Elevated troponin 7. Severe anemia, acute on chronic Plan: We will check for iron stores, FOBT DC aspirin for now, hold Lovenox Continue on SCDs Replace electrolytes PT/OT to evaluate and treat Social work/case management for placement Visit Charges Inpatient E&M: 99774 Subs Hosp L2
[2021-04-29] MEDS: guaiFENesin 10 ML UDC (200MG/10ML) PO (16:22)
[2021-04-29] MEDS: 0.9% Normal Saline 1,000 ML 500 ML IV (17:46)
--- NOTE | 2021-04-29 21:35 | NURSING ---
This RN and dimension quarry supervisor Margie Hogan heard pt calling for help. Upon entering room pt was sitting on floor next to her chair. Pt was last seen sitting in chair sleeping. This RN and Margie Hogan assisted pt up in attempt to stand her but pt was unable to bear own weight and pt was moved safely to bed. She was notably incontinent of urine. Pt was cleaned and assessed, no visible injury, abrasions, scrapes, redness, etc. noted. Primary RN Elsa Caballero and assigned dimension quarry supervisor David Neri were notified. Elsa Caballero arrived and assessed vitals and assessment was completed. MD Copeland and Knit Goods Washer were notified. Pt c/o back pain which was relayed to MD. No scans were ordered at this time as pt states history of chronic back pain. Fall huddle completed.
--- NOTE | 2021-04-29 21:45 | NURSING ---
This RN was called by FISHERIES INSPECTOR to come to room d/t patient being found on the floor. When this Rn arrived to Pt room health diagnostics teacher and FISHERIES INSPECTOR were assisting Pt up in the bed. Vital signs were taken at this time. Pt c/o back pain, and states to always have back pain when asked. Pt A&Ox2 to self and place at this time, which has been her baseline. Bed alarm turned on and Tylenol to be given for back pain.
[2021-04-29] MEDS: Acetaminophen 325 MG Tablet 650 MG PO (21:58)
[2021-04-29] MEDS: Ondansetron 4 MG/2 ML Vial IV (23:17)
[2021-04-30] VITALS (15 sets, daily range): BP systolic 79–102; BP diastolic 48–69; PULSE 56–81; RESP 16–18; TEMP 36.2–36.9; O2SAT 92–98
[2021-04-30] MEDS: Levothyroxine 100 MCG Tablet PO (05:50)
[2021-04-30 06:21] LABS: Absolute Lymphocyte Count 1.45 X10^3/uL (0.83-4.51); Basophil# 0.02 X10^3/uL; Basophil% 0.4 % (0-1); Eosinophil# 0.11 X10^3/uL; Eosinophils% 2.4 % (0-5); Hematocrit 29.6 % (37-47); Hemoglobin 9.1 g/dL (12.0-15.0); Lymphocyte # 1.45 X10^3/ul (0.83-4.51); Lymphocyte % 32.3 % (19-41); Mean Corp Hgb Conc 30.7 g/dL (32-36); Mean Corpuscular Hgb 28.4 pg (27.0-32.0); Mean Corpuscular Volume 92.5 fL (81-99); Mean Platelet Vol. 8.7 fl (6.2-12.0); Monocyte# 0.87 X10^3/uL; Monocyte% 19.4 % (0-10); NRBC Flagged by Analyzer 0 % (0-5); Neutrophil % 44.6 % (47-70); POSITIVE MORPHOLOGY YES; Platelet Count 372 K/mm3 (150-450); RBC Distribution Width SD 73.7 fl (35.1-43.9); White Blood Count 4.5 K/mm3 (4.4-11.0)
[2021-04-30 06:37] LABS: Differential Indicated SCAN CRITERIA MET
[2021-04-30 06:52] LABS: Anion Gap 4 (5-15); BUN 15 mg/dL (7-18); BUN/Creat Ratio 52.3 RATIO (10-20); Chloride 105 mmol/L (98-107); Creatinine, Serum 0.29 mg/dL (0.55-1.02); EST Glomerular Filtration Rate 249 mL/min (>60); Est Glom Filt Rate - Afr Amer 301 mL/min (>60); Estimated Creatinine Clearance 31.54 ml/min; Glucose 76 mg/dL (74-106); Potassium 4.2 mmol/L (3.5-5.1); Sodium Level 135 mmol/L (136-145)
[2021-04-30] MEDS: Acetaminophen 325 MG Tablet 650 MG PO ×2 (08:05→15:59)
[2021-04-30] MEDS: guaiFENesin 10 ML UDC (200MG/10ML) PO ×2 (08:05→15:59)
[2021-04-30] MEDS: Ceftriaxone 1 GM/50 ML BAG IV (10:55)
[2021-04-30] MEDS: levETIRAcetam 1,000 MG Tablet 1000 MG PO ×2 (10:56→20:02)
[2021-04-30] MEDS: Na Biphos/Potassium Phosphate PACKET 1 PACKET PO ×4 (10:56→20:02)
[2021-04-30] MEDS: 0.9% Normal Saline 1,000 ML 75 ML IV (12:02)
[2021-04-30] MEDS: Ondansetron 4 MG/2 ML Vial IV (12:51)
--- NOTE | 2021-04-30 15:33 | PN.HOSP_ITS ---
Documented by User: Montrell STRAUSS 04/30/21 15:41 Subjective Subjective Patient is a 65-year-old female lying in bed, alert and oriented x3. Patient denies any change or progression of symptoms or yesterday. Denies chest pain, shortness of breath, palpitations, hemoptysis, sputum production, fever, chills, N/V/D. Objective Data Objective Data Vital Signs: Vital Signs Temp Pulse Resp BP Pulse Ox 98 F 71 17 101/69 98 04/30/21 12:04 04/30/21 12:04 04/30/21 12:04 04/30/21 12:04 04/30/21 12:04 Oxygen Flow Rate (L/min) 2 Oxygen Delivery Method Nasal Cannula Weight: 79 lb 9.39 oz Body Mass Index (BMI) 12.8 Intake & Output: Intake and Output for Last 24 Hours 04/28/21 04/29/21 04/30/21 23:59 23:59 23:59 Intake Total 750 / 750 4958.75 / 5008.75 1528.75 / 1528.75 Balance 750 / 750 4958.75 / 5008.75 1528.75 / 1528.75 Lab / Micro Data Result Diagrams: 04/30/21 06:04 04/30/21 06:04 Labs: Laboratory Results - last 24 hr 04/30/21 04/30/21 06:04 06:04 WBC 4.5 RBC 3.20 L Hgb 9.1 L Hct 29.6 L MCV 92.5 D MCH 28.4 MCHC 30.7 L D RDW Std Deviation 73.7 H RDW Coeff of Dariela 22.0 H Plt Count 372 MPV 8.7 Immature Gran % (Auto) 0.900 Neut % (Auto) 44.6 L Lymph % (Auto) 32.3 [place] % (Auto) 19.4 H Eos % (Auto) 2.4 Baso % (Auto) 0.4 Absolute Neuts (auto) 2.0 Absolute Lymphs (auto) 1.45 Nucleated RBC % 0 Sodium 135 L Potassium 4.2 Chloride 105 Carbon Dioxide 26.0 Anion Gap 4 L BUN 15 Creatinine 0.29 L Estim Creat Clear Calc 31.54 Est GFR (MDRD) Af Amer 301 Est GFR (MDRD) Non-Af 249 BUN/Creatinine Ratio 52.3 H Glucose 76 Calcium 7.0 L Micro: Microbiology 04/28/21 11:28 Urine, Clean Catch Urine Culture - Final Escherichia coli 04/30/21 06:00 Stool Stool Occult Blood (MICKIE) - Final Occult Blood Positive Radiography Diagnostic Testing: Radiology Impression Echocardiogram 04/28/21 16:18 Interpretation Summary Normal LV size. Left ventricular systolic function is normal. The estimated ejection fraction is 65 %. Stage 1 diastolic dysfunction. Mild focal aortic valve calcification. Echogenic mass attached to the ventricular side of the right coronary cusp m easuring less than 0.5 cm. Cannot exclude vegetation. Mid cavitary dynamic gradient 36 mm/Hg. Ordering Physician: Constanza Welsh Referring Physician: TYRONE SANCHEZ Performed By: Neris Belle, WALTER, RVT Physical Exam Const alert, oriented x3 and no apparent distress HEENT head/scalp atraumatic and moist oral mucous membranes Head and Scalp: normocephalic Eyes PERRL, EOMs intact bilaterally and conjunctivae normal Neck no lymphadenopathy, supple and no JVD Resp normal respiratory effort, no retractions and no use of accessory muscles Cardio regular rate, regular rhythm, no murmurs and no JVD GI normal to inspection, nondistended, normoactive bowel sounds and soft to palpation Extremity normal to inspection and full ROM Skin no rashes or lesions noted, no wounds and skin turgor normal Neuro CN's II-XII intact bilaterally Psych affect normal Assessment & Plan Assessment/Plan (1) Seizure: (2) Acute UTI: (3) Elevated troponin: (4) Metabolic encephalopathy: (5) Anemia: PLAN: See subjective. Discharge planning: CM/SW consult ordered for SNF placement due to PT/OT eval and concerns for adequate care at home. 1) elevated troponin Echocardiogram from 04/30/2021 demonstrates normal LV size and systolic function and estimated EF of 65% and stage I diastolic dysfunction. Echocardiogram is the grossly same from a previous echocardiogram obtained in 2017. Troponins elevated throughout cycle. EKG demonstrates no ST or T wave abnormalities or e vidence of ischemia. Plan; continue to monitor. 2) Acute encephalopathy Brain CT on admission only demonstrated chronic involutional changes of the brain. No leukocytosis evident on CBC. Vital signs stable and patient is afebrile. Baseline mental status unknown. Plan; continue to monitor for i nfection. 3) mild normocytic anemia Hemoglobin currently 9.1, stable from admission. Occult stool positive. Plan;, continue to monitor CBC. 4) severe malnutrition BMI 12.8. Plan; diet consult ordered, patient may need placement at discharge. 5) hypothyroidism Continue home levothyroxine 6) seizure disorder Continue home Keppra 7) tobacco abuse Cessation advised. 8) debility/generalized weakness PT/OT/case management consult ordered. Suspect placement at discharge. 9) THC abuse Urine urine tox screen positive for cannabinoids, cessation advised. 10) hyponatremia Stable, currently 135. Plan; continue to monitor BMP. 11) hypokalemia Resolved, currently 4.2. Plan; continue to monitor BMP. 12) hypomagnesemia Replaced. DVT prophylaxis -Lovenox + SCDs Patient seen by Montrell Castro PA-C, under the supervision of Dr. Mcmahon Documented by User: Dr. Katelynn Mcmahon MD 04/30/21 16:00 Objective Data Lab / Micro Data Result Diagrams: 04/30/21 06:04 04/30/21 06:04 Charges/Coding Addendum Addendum: Patient seen by Montrell Castro PA-C under my supervision Patient seen and examined. She had no complaints this morning. Nurse noted that patient was having a 2-1 heart block per the monitor. This was reviewed and confirmed this morning. Patient has no complaints and feels well. Review of stents otherwise negative. Const alert and oriented x3 Nutritional Appearance: cachectic HEENT head/scalp atraumatic and moist oral mucous membranes Head and Scalp: normocephalic Eyes PERRL, EOMs intact bilaterally and conjunctivae normal Neck no lymphadenopathy, supple and no JVD Resp normal respiratory effort, no retractions and no use of accessory muscles Auscultation: diminished lung sounds Cardio regular rate, regular rhythm, no murmurs and no JVD GI normal to inspection, nondistended, normoactive bowel sounds Extremity normal to inspection, full ROM and no clubbing, cyanosis or edema Skin no rashes or lesions noted and no wounds Neuro CN's II-XII intact bilaterally Psych affect normal Troponins x3 were negative. 2D echo ordered and pending. Dietitian consulted on account of severe malnutrition. Will await echo results and keep on monitoring heart rate and if she becomes bradycardic, will consult cardiology. Rest as per Montrell Castro PA-C's note which I reviewed and endorsed. Visit Charges Inpatient E&M: 53557 Subs Hosp L2
[2021-04-30] MEDS: MELATONIN 3 MG TABLET PO (20:08)
--- NOTE | 2021-04-30 20:13 | NURSING ---
pt c/o iv site peeping. iv changed c/o unable to sleep. cristobal wet finisher notified. melatonin given. Pt using foul language to this nurse. Instrucuted pt not to use foul language but pt continues.
[2021-05-01] VITALS (11 sets, daily range): BP systolic 96–128; BP diastolic 63–85; PULSE 72–80; RESP 14–18; TEMP 36.4–36.6; O2SAT 92–99
[2021-05-01] MEDS: Ondansetron 4 MG/2 ML Vial IV ×2 (02:53→23:53)
[2021-05-01] MEDS: 0.9% Normal Saline 1,000 ML 75 ML IV ×2 (02:56→16:29)
[2021-05-01] MEDS: Levothyroxine 100 MCG Tablet PO (05:42)
[2021-05-01] MEDS: Acetaminophen 325 MG Tablet 650 MG PO ×3 (05:45→22:24)
[2021-05-01 06:28] LABS: Absolute Lymphocyte Count 1.78 X10^3/uL (0.83-4.51); Absolute Neutrophil Count 2.1 X10^3/uL (2.0-7.7); Basophil# 0.02 X10^3/uL; Basophil% 0.4 % (0-1); Eosinophil# 0.12 X10^3/uL; Eosinophils% 2.3 % (0-5); Hematocrit 29.3 % (37-47); Lymphocyte # 1.78 X10^3/ul (0.83-4.51); Lymphocyte % 34.2 % (19-41); Mean Corp Hgb Conc 30.7 g/dL (32-36); Mean Corpuscular Hgb 28.7 pg (27.0-32.0); Mean Corpuscular Volume 93.3 fL (81-99); Mean Platelet Vol. 8.7 fl (6.2-12.0); Monocyte# 1.13 X10^3/uL; Monocyte% 21.7 % (0-10); NRBC Flagged by Analyzer 0 % (0-5); Neutrophil # 2.13 X10^3/uL (2.7-7.7); POSITIVE MORPHOLOGY YES; Platelet Count 500 K/mm3 (150-450); RBC Distribution Width CV 22.3 % (11.6-14.6); RBC Distribution Width SD 74.9 fl (35.1-43.9); Red Blood Count 3.14 M/mm3 (4.2-5.4); White Blood Count 5.2 K/mm3 (4.4-11.0)
[2021-05-01 06:29] LABS: Differential Indicated SCAN CRITERIA MET
[2021-05-01 06:54] LABS: Anion Gap 5 (5-15); BUN 13 mg/dL (7-18); BUN/Creat Ratio 44.4 RATIO (10-20); Calcium,Total 7.1 mg/dL (8.5-10.1); Chloride 105 mmol/L (98-107); Creatinine, Serum 0.29 mg/dL (0.55-1.02); EST Glomerular Filtration Rate 243 mL/min (>60); Est Glom Filt Rate - Afr Amer 294 mL/min (>60); Estimated Creatinine Clearance 33.02 ml/min; Glucose 73 mg/dL (74-106); Potassium 4.5 mmol/L (3.5-5.1); Sodium Level 134 mmol/L (136-145)
[2021-05-01] MEDS: levETIRAcetam 1,000 MG Tablet 1000 MG PO ×2 (09:26→22:25)
[2021-05-01] MEDS: Na Biphos/Potassium Phosphate PACKET 1 PACKET PO ×4 (09:26→22:25)
--- NOTE | 2021-05-01 10:13 | PCM.PN.HOSP ---
Documented by User: Montrell STRAUSS 05/01/21 10:29 Subjective Subjective Patient is a 65-year-old female lying in bed, alert and orient x3. Patient denies any change or progression in symptoms from yesterday. Denies chest pain, shortness of breath, palpitations, fever, chills, N/V/D. Objective Data Objective Data Vital Signs: Vital Signs Temp Pulse Resp BP Pulse Ox 97.9 F 78 16 111/70 92 05/01/21 09:27 05/01/21 09:27 05/01/21 09:27 05/01/21 09:27 05/01/21 09:27 Oxygen Flow Rate (L/min) 2 Oxygen Delivery Method Room Air Weight: 83 lb 5.356 oz Body Mass Index (BMI) 12.8 Intake & Output: Intake and Output for Last 24 Hours 04/29/21 04/30/21 05/01/21 23:59 23:59 23:59 Intake Total 4958.75 / 5008.75 2198.75 / 2198.75 1120 / 1120 Balance 4958.75 / 5008.75 2198.75 / 2198.75 1120 / 1120 Lab / Micro Data Result Diagrams: 05/01/21 06:06 05/01/21 06:06 Labs: Laboratory Results - last 24 hr 05/01/21 05/01/21 06:06 06:06 WBC 5.2 RBC 3.14 L Hgb 9.0 L Hct 29.3 L MCV 93.3 MCH 28.7 MCHC 30.7 L RDW Std Deviation 74.9 H RDW Coeff of Dariela 22.3 H Plt Count 500 H MPV 8.7 Immature Gran % (Auto) 0.400 Neut % (Auto) 41.0 L Lymph % (Auto) 34.2 [place] % (Auto) 21.7 H Eos % (Auto) 2.3 Baso % (Auto) 0.4 Absolute Neuts (auto) 2.1 Absolute Lymphs (auto) 1.78 Nucleated RBC % 0 Sodium 134 L Potassium 4.5 Chloride 105 Carbon Dioxide 24.0 Anion Gap 5 BUN 13 Creatinine 0.29 L Estim Creat Clear Calc 33.02 Est GFR (MDRD) Af Amer 294 Est GFR (MDRD) Non-Af 243 BUN/Creatinine Ratio 44.4 H Glucose 73 L Calcium 7.1 L Micro: Microbiology 04/28/21 11:28 Urine, Clean Catch Urine Culture - Final Escherichia coli 04/30/21 06:00 Stool Stool Occult Blood (MICKIE) - Final Occult Blood Positive Radiography Diagnostic Testing: Radiology Impression Echocardiogram 04/28/21 16:18 Interpretation Summary Normal LV size. Left ventricular systolic function is normal. The estimated ejection fraction is 65 %. Stage 1 diastolic dysfunction. Mild focal aortic valve calcification. Echogenic mass attached to the ventricular side of the right coronary cusp measuring less than 0.5 cm. Cannot exclude vegetation. Mid cavitary dynamic gradient 36 mm/Hg. Ordering Physician: Constanza Welsh Referring Physician: TYRONE SANCHEZ Performed By: Neris Belle, WALTER, RVT Physical Exam Const alert and oriented x3 Exam Limitations: behavioral limitations Nutritional Appearance: cachectic HEENT head/scalp atraumatic Head and Scalp: normocephalic Eyes PERRL and EOMs intact bilaterally Neck no lymphadenopathy and supple Resp normal respiratory effort, no retractions and no use of accessory muscles Cardio regular rate, regular rhythm, no murmurs and no JVD GI normal to inspection, nondistended, normoactive bowel sounds and soft to palpation Extremity normal to inspection, full ROM and no clubbing, cyanosis or edema Skin no rashes or lesions noted, no wounds and skin turgor normal Neuro CN's II-XII intact bilaterally Psych affect normal Assessment & Plan Assessment/Plan (1) Seizure disorder: (2) Acute UTI: (3) Elevated troponin: (4) Metabolic encephalopathy: (5) Anemia: PLAN: See subjective. Discharge planning: Complex disposition as patients (caregiver) reports he is overly strained by caring for his due to her behavioral issue and complex medical history. CM/SW consulted, however are doubtful that patient will qualify for SNF. SW looking into social assistance program for . 1) elevated troponin Echocardiogram from 04/30/2021 demonstrates normal LV size and systolic function and estimated EF of 65% and stage I diastolic dysfunction. Echocardiogram is the grossly same from a previous echocardiogram obtained in 2017. Troponins elevated throughout cycle. EKG demonstrates no ST or T wave abnormalities or evidence of ischemia. Plan; continue to monitor. 2) Acute encephalopathy Brain CT on admission only demonstrated chronic involutional changes of the brain. No leukocytosis evident on CBC. Vital signs stable and patient is afebrile. Baseline mental status unknown. Plan; continue to monitor for infection. 3) mild normocytic anemia Hemoglobin currently 9.0, stable from admission. Occult stool positive. Plan; continue to monitor CBC. 4) severe malnutrition BMI 12.8. Plan; diet consult ordered, patient may need placement at discharge. 5) hypothyroidism Continue home levothyroxine 6) seizure disorder Continue home Keppra 7) tobacco abuse Cessation advised. 8) debility/generalized weakness PT/OT/case management consult ordered. Suspect placement at discharge. 9) THC abuse Urine urine tox screen positive for cannabinoids, cessation advised. 10) hyponatremia Stable, currently 135. Plan; continue to monitor BMP. 11) hypokalemia Resolved, currently 4.2. Plan; continue to monitor BMP. 12) hypomagnesemia Replaced. 13) Abnormal echocardiogram Echocardiogram completed on 04/30/2021 demonsrated echogenic mass on the right coronary cusp, cannot exclude vegetation. LV size and systolic function is normal, ejection fraction is 65% and stage I diastolic dysfunction was noted. CBC and BMP are unremarkable, vital signs are stable and patient is afebrile. Plan; LILIANA ordered for 05/02, ID consult ordered. DVT prophylaxis -Lovenox + SCDs Patient seen by Montrell Castro PA-C, under the supervision of Dr. Mcmahon Documented by User: Dr. Katelynn Mcmahon MD 05/01/21 12:41 Objective Data Lab / Micro Data Result Diagrams: 05/01/21 06:06 05/01/21 06:06 Charges/Coding Addendum Addendum: Patient seen by Montrell Castro PA-C under my supervision Patient seen and examined. She has no complaints this morning and feels well. Review of systems otherwise negative. She has remained in normal sinus rhythm since yesterday per telemetry. Review of systems otherwise negative. Const alert and oriented x3 Nutritional Appearance: cachectic HEENT head/scalp atraumatic and moist oral mucous membranes Head and Scalp: normocephalic Eyes PERRL, EOMs intact bilaterally and conjunctivae normal Neck no lymphadenopathy, supple and no JVD Resp normal respiratory effort, no retractions and no use of accessory muscles Auscultation: diminished lung sounds Cardio regular rate, regular rhythm, no murmurs and no JVD GI normal to inspection, nondistended, normoactive bowel sounds Extremity normal to inspection, full ROM and no clubbing, cyanosis or edema Skin no rashes or lesions noted and no wounds Neuro CN's II-XII intact bilaterally Psych affect normal Troponins x3 were negative. 2D echo showed normal left ventricular size and function with EF of 65% and stage I diastolic dysfunction with no regional motion abnormalities seen; she also had an echogenic mass attached to the ventricular side of the right coronary cusp measuring less than 0.5 cm and cannot exclude vegetation. ID consulted and blood cultures obtained. Patient will need a LILIANA in order placed for to be done tomorrow. Dietitian consulted on account of severe malnutrition. Rest as per Montrell Castro PA-C's note which I have reviewed and endorsed. Visit Charges Inpatient E&M: 38754 Subs Hosp L3
--- NOTE | 2021-05-01 10:37 | CON.PCM.ID_ITS ---
Assessment & Plan Assessment/Plan (1) Metabolic encephalopathy: PLAN: H/o recurrent uti. UA here with 0 wbc but ucx with ecoli. On ceftriaxone. TTE showed small possible veg. Bcx collected this AM and LILIANA ordered. Recommended covid shot to her and her Has h/o latent TB, untreated as far as I can tell, no sign of active disease in terms of symptoms or imaging. Would not do PPD. Will follow, thank you, d/w primary team HPI Consult Data Date of Consult: 05/01/21 HPI Narrative HPI Narrative: NAKUL STORM, is a 65 F who presented 04/28 with altered mental s tatus after her called EMS. Has not gotten covid shot. Gets frequent uti. No recent dental work. Has h/o latent TB, does not think it has been treated. No hemoptysis, no blood in stool. Pt denies fever, dysuria, urinary changes. Admitted, started on ceftriaxone due to abnormal UA. TTE shows small possible veg on aortic valve. Bcx ordered this Am. Full ROS performed and neg except as noted above. [facility] Medical History Seizures Home Medications levothyroxine 100 mcg PO DAILY 03/24/19 [History Last Taken Unknown] levetiracetam 1,000 mg PO BID #60 tab 01/25/20 [Rx Last Taken Unknown] mirtazapine 30 mg PO QHS 01/20/21 [History Last Taken Unknown] Allergy/AdvReac Type Severity Reaction Status Date / Time Penicillins Allergy Unknown Verified 04/28/21 08:15 Social History (Updated 04/28/21 @ 15:[address] Constanza Welsh, DO) Smoking Status: Current every day smoker tobacco type: cigarettes alcohol intake: former details: Patient admits to intermittent use substance use type: marijuana Physical Exam Const alert and no apparent distress Constitutional Narrative: oriented x2 General Appearance: cooperative HEENT head/scalp atraumatic Eyes PERRL and EOMs intact bilaterally Neck supple and No nodes Resp clear to auscultation bilaterally Cardio regular rate, regular rhythm, S1 normal heart sound and S2 normal heart sound GI normal to inspection, nondistended, normoactive bowel sounds Extremity no clubbing, cyanosis or edema Skin no rashes or lesions noted Neuro CN's II-XII intact bilaterally Lab / Micro Data Result Diagrams: 05/01/21 06:06 05/01/21 06:06 Labs: Laboratory Results - last 24 hr 05/01/21 05/01/21 06:06 06:06 WBC 5.2 RBC 3.14 L Hgb 9.0 L Hct 29.3 L MCV 93.3 MCH 28.7 MCHC 30.7 L RDW Std Deviation 74.9 H RDW Coeff of Dariela 22.3 H Plt Count 500 H MPV 8.7 Immature Gran % (Auto) 0.400 Neut % (Auto) 41.0 L Lymph % (Auto) 34.2 [place] % (Auto) 21.7 H Eos % (Auto) 2.3 Baso % (Auto) 0.4 Absolute Neuts (auto) 2.1 Absolute Lymphs (auto) 1.78 Nucleated RBC % 0 Sodium 134 L Potassium 4.5 Chloride 105 Carbon Dioxide 24.0 Anion Gap 5 BUN 13 Creatinine 0.29 L Estim Creat Clear Calc 33.02 Est GFR (MDRD) Af Amer 294 Est GFR (MDRD) Non-Af 243 BUN/Creatinine Ratio 44.4 H Glucose 73 L Calcium 7.1 L Micro: Microbiology 04/28/21 11:28 Urine Culture - Final Urine, Clean Catch Escherichia coli Radiology Impression Echocardiogram 04/28/21 16:18 Interpretation Summary Normal LV size. Left ventricular systolic function is normal. The estimated ejection fraction is 65 %. Stage 1 diastolic dysfunction. Mild focal aortic valve calcification. Echogenic mass attached to the ventricular side of the right coronary cusp measuring less than 0.5 cm. Cannot exclude vegetation. Mid cavitary dynamic gradient 36 mm/Hg. Ordering Physician: Constanza Welsh Referring Physician: TYRONE SANCHEZ Performed By: Neris Belle, WALTER, RVT
[2021-05-01] MEDS: Ceftriaxone 1 GM/50 ML BAG IV (10:45)
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
--- NOTE | 2021-05-01 12:11 | NURSING ---
RNCM Note: Palliative Care Screening Tool completed per [facility] guidelinesd/t Lace score. Patient currently does not meet criteria for referral. RIGOBERTO Hanks
[2021-05-01] MEDS: guaiFENesin 10 ML UDC (200MG/10ML) PO (13:43)
[2021-05-01] MEDS: Haloperidol 1 MG Tablet 0.5 MG PO (22:24)
[2021-05-01] MEDS: MELATONIN 3 MG TABLET PO (22:25)
[2021-05-02] VITALS (10 sets, daily range): BP systolic 97–126; BP diastolic 60–91; PULSE 67–86; RESP 14–18; TEMP 36.3–36.6; O2SAT 95–98; BMI 13.4
[2021-05-02 05:39] LABS: Absolute Lymphocyte Count 2.41 X10^3/uL (0.83-4.51); Absolute Neutrophil Count 1.8 X10^3/uL (2.0-7.7); Basophil# 0.03 X10^3/uL; Basophil% 0.6 % (0-1); Eosinophil# 0.15 X10^3/uL; Eosinophils% 2.8 % (0-5); Hemoglobin 9.2 g/dL (12.0-15.0); Lymphocyte # 2.41 X10^3/ul (0.83-4.51); Lymphocyte % 44.4 % (19-41); Mean Corp Hgb Conc 30.7 g/dL (32-36); Mean Corpuscular Hgb 28.5 pg (27.0-32.0); Mean Corpuscular Volume 92.9 fL (81-99); Mean Platelet Vol. 8.4 fl (6.2-12.0); Monocyte% 18.4 % (0-10); NRBC Flagged by Analyzer 0 % (0-5); Neutrophil % 33.1 % (47-70); POSITIVE MORPHOLOGY YES; Platelet Count 597 K/mm3 (150-450); RBC Distribution Width CV 22.3 % (11.6-14.6); RBC Distribution Width SD 74.9 fl (35.1-43.9); Red Blood Count 3.23 M/mm3 (4.2-5.4); White Blood Count 5.4 K/mm3 (4.4-11.0)
[2021-05-02 05:40] LABS: Differential Indicated SCAN CRITERIA MET
[2021-05-02 06:01] LABS: Anion Gap 5 (5-15); BUN 12 mg/dL (7-18); Calcium,Total 7.5 mg/dL (8.5-10.1); Chloride 105 mmol/L (98-107); Creatinine, Serum 0.32 mg/dL (0.55-1.02); EST Glomerular Filtration Rate 222 mL/min (>60); Est Glom Filt Rate - Afr Amer 269 mL/min (>60); Estimated Creatinine Clearance 33.02 ml/min; Glucose 84 mg/dL (74-106); Potassium 4.5 mmol/L (3.5-5.1); Sodium Level 135 mmol/L (136-145)
[2021-05-02] MEDS: 0.9% Normal Saline 1,000 ML 75 ML IV (06:47)
--- NOTE | 2021-05-02 08:18 | ECHOTEE_ITS ---
Reason For Study: ELEVATED TROPONIN Medication LILIANA probe 6VT-D (SN [id number]) passed without difficulty. No complications were noted. Cetacaine Topical [place] given X3 orally. Versed 1 mg given slow IVP. Fentanyl 25 mcg given slow IVP. Performed a rapid injection of agitated mix of 9 cc saline and 1cc air to assess for atrial septal defect. Left Ventricle Normal LV size. Left ventricular systolic function is normal. The estimated ejection fraction is 55 %. Right Ventricle Normal RV size. Atria Normal atrial septum. Normal left atrium. Normal right atrium. Mitral Valve Normal mitral valve. Tricuspid Valve Normal tricuspid valve. Aortic Valve Trileaflet aortic valve with a subvalvular area with a mass attached measuring 0.5 x 0.4 cm, mobile. Pulmonic Valve Normal pulmonic valve. Vessels Normal aortic root. Pericardium No pericardial effusion. ECHO/Echo Transesophageal (LILIANA) Interpretation Summary Normal LV size. Left ventricular systolic function is normal. The estimated ejection fraction is 55 %. Trileaflet aortic valve with a subvalvular area with a mass attached measuring 0.5 x 0.4 cm, mobile Ordering Physician: Montrell Castro Referring Physician: TYRONE SANCHEZ Performed By: Neris Belle RDCS, RVT
[2021-05-02] MEDS: Ceftriaxone 1 GM/50 ML BAG IV (10:57)
--- NOTE | 2021-05-02 11:27 | CASEMGMT ---
LUCIE called Em Kruse a child support case officer at [facility]. LUCIE asked if a spouse can be paid to be a caregiver for their spouse. She said they cannot. She said she will double check to make sure nothing has changed. She will get back to LUCIE. Cecy CHARLES
--- NOTE | 2021-05-02 11:29 | CASEMGMT ---
LUCIE did fax a referral to [facility] to see if they would accept her. When LUCIE spoke with her he said if he agrees for her to go to a fdc [facility] would be okay if they would take her back. Cecy CHARLES
[2021-05-02] MEDS: Na Biphos/Potassium Phosphate PACKET 1 PACKET PO (14:03)
--- NOTE | 2021-05-02 18:26 | PN.HOSP_ITS ---
Subjective Subjective Patient is a 65-year-old female comfortably resting in bed, alert and oriented x3. Denies chest pain, shortness of breath, palpitations, fever, chills, N/V/D. Objective Data Objective Data Vital Signs: Vital Signs Temp Pulse Resp BP Pulse Ox 97.6 F L 69 14 97/71 95 05/02/21 14:04 05/02/21 14:04 05/02/21 14:04 05/02/21 14:04 05/02/21 14:04 Oxygen Flow Rate (L/min) 2 Oxygen Delivery Method Room Air Weight: 83 lb 5.356 oz Body Mass Index (BMI) 13.4 Intake & Output: Intake and Output for Last 24 Hours 04/30/21 05/01/21 05/02/21 23:59 23:59 23:59 Intake Total 2198.75 / 2438.75 4153.75 / 4153.75 707.5 / 707.5 Balance 2198.75 / 2438.75 4153.75 / 4153.75 707.5 / 707.5 Lab / Micro Data Result Diagrams: 05/02/21 05:12 05/02/21 05:12 Labs: Laboratory Results - last 24 hr 05/02/21 05/02/21 05:12 05:12 WBC 5.4 RBC 3.23 L Hgb 9.2 L Hct 30.0 L MCV 92.9 MCH 28.5 MCHC 30.7 L RDW Std Deviation 74.9 H RDW Coeff of Dariela 22.3 H Plt Count 597 H MPV 8.4 Immature Gran % (Auto) 0.700 Neut % (Auto) 33.1 L Lymph % (Auto) 44.4 H [place] % (Auto) 18.4 H Eos % (Auto) 2.8 Baso % (Auto) 0.6 Absolute Neuts (auto) 1.8 L Absolute Lymphs (auto) 2.41 Nucleated RBC % 0 Sodium 135 L Potassium 4.5 Chloride 105 Carbon Dioxide 25.0 Anion Gap 5 BUN 12 Creatinine 0.32 L Estim Creat Clear Calc 33.02 Est GFR (MDRD) Af Amer 269 Est GFR (MDRD) Non-Af 222 BUN/Creatinine Ratio 38.0 H Glucose 84 Calcium 7.5 L Micro: Microbiology 05/02/21 05:50 Mucosa - Nose SARS-CoV-2 Antigen (Rapid) - Final 04/28/21 11:28 Urine, Clean Catch Urine Culture - Final Escherichia coli 04/30/21 06:00 Stool Stool Occult Blood (MICKIE) - Final Occult Blood Positive Physical Exam Const alert
--- NOTE | 2021-05-02 18:31 | DS.PCM_ITS ---
Documented by User: Montrell STRAUSS 05/02/21 18:39 Providers Date of Admission: 04/28/21 Primary Care Physician: Dr. Oscar Reese MD Consultations 04/28/21 16:01 Consult: Podiatry Routine Consulting Provider: Lisa King Reason for Consult: nail care EMERGENT Consult: No Notified: Yes Date Notified: 04/28/21 Time Notified: 16:01 Method of Notification: Verbal 05/01/21 09:15 Consult: Infectious Disease Routine Consulting Provider: Maco Loomis Reason for Consult: Possible vegetation noted on Echo EMERGENT Consult: No Notified: Yes Date Notified: 05/01/21 Time Notified: 09:17 Method of Notification: Answering Service Reason For Visit: TROPONIN ELEVATION Diagnosis Discharge Diagnosis (1) Metabolic encephalopathy: Status: Acute Code(s): G93.41 - Metabolic encephalopathy Medications at Discharge Home Medications levothyroxine 100 mcg PO DAILY 03/24/19 levetiracetam 1,000 mg PO BID #60 tab 01/25/20 mirtazapine 30 mg PO QHS 01/20/21 Hospital Course Summary of Care Provided Minutes Spent on Discharge: 35 Hospital Course: See subjective. Discharge planning: Patient to be transferred to [facility] for higher level of care given the presence of possible vegetation on the aortic valve. This provider spoke to Martina from the [facility] transfer line, who informed me at 1730 that patient was accepted to the hospital medicine service under the care of Dr. Cobb, with a cardiac surgery consult ordered. 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 Given presence of possible vegetation, patient will need higher level of care. Echocardiogram from 04/30/2021 demonstrates normal LV size and systolic function and estimated EF of 65% and stage I diastolic dysfunction. Echocardiogram is the grossly same from a previous echocardiogram obtained in 2017. Troponin elevated throughout cycle. EKG demonstrates no ST or T wave abnormalities or evidence of ischemia. Plan; patient to be transferred to [facility] due to presence of possible vegetation on aortic valve. 2) Acute encephalopathy Brain CT on admission only demonstrated chronic involutional changes of the brain. No leukocytosis evident on CBC. Vital signs stable and patient is afebrile. Baseline mental status unknown. Plan; continue to monitor for infection. 3) mild normocytic anemia Hemoglobin currently 9.2, stable from admission. Occult stool positive. Patient is hemodynamically stable. Plan; continue to monitor CBC. 4) severe malnutrition BMI 12.8. Plan; diet consult ordered. 5) hypothyroidism Continue home levothyroxine 6) seizure disorder Continue home Keppra 7) tobacco abuse Cessation advised. 8) debility/generalized weakness PT/OT/case management consult ordered. Suspect placement at discharge. 9) THC abuse Urine urine tox screen positive for cannabinoids, cessation advised. 10) hyponatremia Stable, currently 135. Plan; continue to monitor BMP. 11) hypokalemia Resolved, currently 4.5. Plan; continue to monitor BMP. 12) hypomagnesemia Replaced. DVT prophylaxis -Lovenox + SCDs Patient seen by Montrell Castro PA-C, under the supervision of Dr. Mcmahon Physical Exam Const alert, oriented x3 and no apparent distress HEENT normocephalic, head/scalp atraumatic and hearing grossly normal bilaterally Eyes PERRL, EOMs intact bilaterally and conjunctivae normal Neck no lymphadenopathy, supple and no JVD Resp normal respiratory effort, no retractions, no use of accessory muscles and clear to auscultation bilaterally Cardio regular rate, regular rhythm, no murmurs and no JVD GI normal to inspection, nondistended, normoactive bowel sounds and soft to p alpation Extremity normal to inspection, full ROM and no clubbing, cyanosis or edema Skin no rashes or lesions noted, no wounds and skin turgor normal Neuro CN's II-XII intact bilaterally Psych affect normal Weight / BMI Weight Weight: 83 lb 5.356 oz Body Mass Index (BMI) 13.4 ABG / Lab / Microbiology Data Result Diagrams: 05/02/21 05:12 05/02/21 05:12 Laboratory: Laboratory Results - last 24 hr 05/02/21 05/02/21 05:12 05:12 WBC 5.4 RBC 3.23 L Hgb 9.2 L Hct 30.0 L MCV 92.9 MCH 28.5 MCHC 30.7 L RDW Std Deviation 74.9 H RDW Coeff of Dariela 22.3 H Plt Count 597 H MPV 8.4 Immature Gran % (Auto) 0.700 Neut % (Auto) 33.1 L Lymph % (Auto) 44.4 H Green % (Auto) 18.4 H Eos % (Auto) 2.8 Baso % (Auto) 0.6 Absolute Neuts (auto) 1.8 L Absolute Lymphs (auto) 2.41 Nucleated RBC % 0 Sodium 135 L Potassium 4.5 Chloride 105 Carbon Dioxide 25.0 Anion Gap 5 BUN 12 Creatinine 0.32 L Estim Creat Clear Calc 33.02 Est GFR (MDRD) Af Amer 269 Est GFR (MDRD) Non-Af 222 BUN/Creatinine Ratio 38.0 H Glucose 84 Calcium 7.5 L Microbiology: Microbiology 05/02/21 05:50 SARS-CoV-2 Antigen (Rapid) - Final Mucosa - Nose Microbiology 05/02/21 05:50 Mucosa - Nose SARS-CoV-2 Antigen (Rapid) - Final 04/28/21 11:28 Urine, Clean Catch Urine Culture - Final Escherichia coli 04/30/21 06:00 Stool Stool Occult Blood (MICKIE) - Final Occult Blood Positive Meaningful Use Info Meaningful Use Diagnoses (Choose all that apply): None applicable Discharge Plan Admission Admit Date/Time: 04/28/21 15:19 Attending Provider: Katelynn Mcmahon Primary Care Provider: Oscar Reese Consulting Providers: Lisa King ; Maco Loomis Discharge Orders/Prescriptions Prescriptions: No Action levothyroxine 150 tablet 100 mcg PO DAILY RF: 0 levetiracetam 1,000 MG tablet 1,000 mg PO BID Qty: 60 RF: 0 mirtazapine 30 MG tablet 30 mg PO QHS RF: 0 Referrals / Follow Up: Oscar Reese MD [Primary Care Provider] - Lisa King DPM [STAFF PHYSICIAN] - (follow up as needed at [facility]; [phone]) Disposition Discharge Orders: Discharge Patient (Routine); Ordered 05/02/21 Ordered By: Montrell STRAUSS Documented by User: Dr. Katelynn Mcmahon MD 05/03/21 12:24 Providers Date of Admission: 04/28/21 Reason For Visit: TROPONIN ELEVATION Medications at Discharge Home Medications levothyroxine 100 mcg PO DAILY 03/24/19 levetiracetam 1,000 mg PO BID #60 tab 01/25/20 mirtazapine 30 mg PO QHS 01/20/21 ABG / Lab / Microbiology Data Result Diagrams: 05/02/21 05:12 05/02/21 05:12 Discharge Plan Admission Admit Date/Time: 04/28/21 15:19 Attending Provider: Katelynn Mcmahon Primary Care Provider: Oscar Reese Consulting Providers: Lisa King ; Maco Loomis Discharge Orders/Prescriptions Prescriptions: No Action levothyroxine 150 tablet 100 mcg PO DAILY RF: 0 levetiracetam 1,000 MG tablet 1,000 mg PO BID Qty: 60 RF: 0 mirtazapine 30 MG tablet 30 mg PO QHS RF: 0 Referrals / Follow Up: Oscar Reese MD [Primary Care Provider] - Lisa King DPM [STAFF PHYSICIAN] - (follow up as needed at the [facility]; [phone]) Disposition Discharge Orders: Discharge Patient (Routine); Ordered 05/02/21 Ordered By: Montrell STRAUSS Charges/Coding Addendum Addendum: Patient seen by Montrell Castro PA-C under my supervision Patient is a 65-year-old female with a past medical history as outlined was admitted through the ED on 04/28/2021 with a complaint of back pain and altered mental status. She really did not have any other symptoms and was quite confused on admission. Troponin was 0.122 and EKG showed normal acute ST changes. Urine tox was positive for THC but her serum alcohol level was negative. Urinalysis showed 3+ bacteria she was started on IV ceftriaxone and hydrated with IV fluids and admitted to be managed for UTI as well as acute metabolic encephalopathy. On account of the elevated troponin, she had a TTE done which showed normal left ventricular size and systolic function and EF of 65% with concerns for possible vegetation on the coronary cusp. 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 Due to concerns about possible infective endocarditis, patient was transferred to [facility] for tertiary care. Of note, ID was also consulted on account of the vegetative growth and blood cultures were obtained which showed no growth at time of discharge. Patient refused expiratory prior to discharge. She had no complaints and was resting comfortably. Review of systems otherwise negative. Labs and vitals reviewed. Home medication reviewed and reconciled. O/E: Const alert and oriented x3 Exam Limitations: behavioral limitations Nutritional Appearance: cachectic HEENT head/scalp atraumatic Head and Scalp: normocephalic Eyes PERRL and EOMs intact bilaterally Neck no lymphadenopathy and supple Resp normal respiratory effort, no retractions and no use of accessory muscles Cardio regular rate, regular rhythm, no murmurs and no JVD GI normal to inspection, nondistended, normoactive bowel sounds and soft to palpation Extremity normal to inspection, full ROM and no clubbing, cyanosis or edema Skin no rashes or lesions noted, no wounds and skin turgor normal Neuro CN's II-XII intact bilaterally Psych affect normal Plan is for transfer to [facility] as per Montrell Castro PA-C's note, which I have reviewed and endorsed. Visit Charges Inpatient E&M: [id number] Disch Hosp
--- NOTE | 2021-05-02 19:28 | NURSING ---
Pt was notified of need for patients transfer to [facility] for further workup related to LILIANA finding of vegetation on heart valve. He was agreeable and gave verbal consent to transfer her.
--- NOTE | 2021-05-02 20:14 | NURSING ---
Transport here to take pt to [facility] at this time. Report called to [facility] by prior shift rn kadie and made aware of pts transfer by kadie zaidi as well. Report given to transport and transport assuming care of pt.
== END 2021-05-02 20:16 | disposition short-term general hospital (02) | DRG 288 ==
LOC: ED 10:16 → PCU 15:38
PROVIDERS: Internal Medicine; Physician Assistant; Admitting Provider Internal Medicine; Emergency Provider Emergency Medicine; PCP Family Medicine; Referring Provider Internal Medicine; Visit Provider Student in an Organized Health Care Education/Training Program
DX: I33.0 Acute and subacute infective endocarditis (principal); G93.41 Metabolic encephalopathy; E43 Unspecified severe protein-calorie malnutrition; Z68.1 Body mass index [BMI] 19.9 or less, adult; E87.1 Hypo-osmolality and hyponatremia; N39.0 Urinary tract infection, site not specified; R77.8 Other specified abnormalities of plasma proteins; D64.9 Anemia, unspecified; E03.9 Hypothyroidism, unspecified; G40.909 Epilepsy, unspecified, not intractable, without status epilepticus; F17.210 Nicotine dependence, cigarettes, uncomplicated; F12.10 Cannabis abuse, uncomplicated; E87.6 Hypokalemia; E83.42 Hypomagnesemia; R94.31 Abnormal electrocardiogram [ECG] [EKG]; E86.0 Dehydration; J44.9 Chronic obstructive pulmonary disease, unspecified; B35.1 Tinea unguium; M79.674 Pain in right toe(s); M79.675 Pain in left toe(s); Z79.899 Other long term (current) drug therapy; Z86.15 Personal history of latent tuberculosis infection
CPT/HCPCS: 36415; 70450; 71045; 80048; 80053; 80061; 80307; 81001; 82077; 82274; 82728; 83540; 83550; 83735; 84100; 84443; 84484; 85014; 85018; 85025; 87040; 87077; 87086; 87088; 87186; 87426; 93005; 93306; 93312; 93320; 93325; 97162; 97166; 97530; 97535; 97802; 97803; 99251; 99285; 99406; J7030; J7040; A4216; G0463; J2405